=== PATIENT | female | born 1955 | race Caucasian/White ===

== ENCOUNTER 2019-11-18 19:46 | Observation (INO) | payer BC, OTHER ==
[2019-11-18 21:06] LABS: Basophils % 0.1 % (0-1.3); Hematocrit 43.8 % (36.0-45.0); Lymphocytes % 10.4 % (15.3-44.8); MPV 9.1 fL (7.6-11.3); RBC Red Blood Cell Count 5.15 M/uL (3.86-4.86)
[2019-11-18 21:27] LABS: ALT/SGPT 28 U/L (12-78); AST/SGOT 37 U/L (15-37); Albumin 2.6 g/dL (3.4-5.0); Alkaline Phosphatase 90 U/L (45-117); BUN Blood Urea Nitrogen 12 mg/dL (7-18); Bicarbonate 20 mmol/L (21-32); Bilirubin Direct < 0.1 mg/dL (0-0.2); Bilirubin Total 0.4 mg/dL (0.2-1.0); Creatine Phosphokinase 51 U/L (26-192); Glucose Level 302 mg/dL (74-106); Potassium 3.9 mmol/L (3.5-5.1); Protein, Total 7.8 g/dL (6.4-8.2); Sodium Level 132 mmol/L (136-145); Troponin (Emerg Dept Use Only) 0.02 ng/mL (0.0-0.045)
[2019-11-18 21:40] LABS: Protime INR 1.08
[2019-11-18] MEDS ORDERED: NA CHLORIDE 0.9% 1,000 ML ONE (22:20)
[2019-11-18] MEDS ORDERED: dexAMETHasone 10 MG/ML VIAL ONE (22:20)
--- NOTE | 2019-11-18 23:18 | EDPHYS ---
Physician Documentation [facility] Name: Venecia Ware Age: 64 yrs Sex: Female : 1955 Arrival Date: 11/18/2019 Time: 19:50 Bed 19 Private MD: ED Physician Reji Walls HPI: 11/17 21:07 This 64 yrs old Female presents to ER via Wheelchair with complaints of Flu jr8 Symptoms, Breathing Difficulty. 21:07 Onset: The symptoms/episode began/occurred gradually, 1 week(s) ago, and became worse 4 jr8 day(s) ago. Associated signs and symptoms: Pertinent positives: cough, diarrhea, shortness of breath, loss of taste. Modifying factors: The patient symptoms are alleviated by nothing, the patient symptoms are aggravated by movement. The patient has not experienced similar symptoms in the past. The patient has not recently seen a physician. Historical: - Allergies: 20:04 No Known Allergies; lp1 - Home Meds: 20:04 None [Active]; lp1 - PMHx: 20:04 Diabetes - NIDDM; Hyperlipidemia; Hypertension; lp1 - PSHx: 20:04 Heart stents; Cholecystectomy; Hysterectomy; lp1 - Immunization history:: Adult Immunizations up to date. - Social history:: Smoking status: Patient denies any tobacco usage or history of. ROS: 21:07 Eyes: Negative for injury, pain, redness, and discharge, ENT: Negative for injury, jr8 pain, and discharge, Neck: Negative for injury, pain, and swelling, Cardiovascular: Negative for chest pain, palpitations, and edema, Back: Negative for injury and pain, MS/Extremity: Negative for injury and deformity, Skin: Negative for injury, rash, and discoloration, Neuro: Negative for headache, weakness, numbness, tingling, and seizure. 21:07 Respiratory: Positive for cough, dyspnea on exertion, shortness of breath. 21:07 Abdomen/GI: Positive for diarrhea. 21:08 Constitutional: Positive for body aches, chills, fever, malaise. jr8 Exam: 21:08 Eyes: Pupils equal round and reactive to light, extra-ocular motions intact. Lids and jr8 lashes normal. Conjunctiva and sclera are non-icteric and not injected. Cornea within normal limits. Periorbital areas with no swelling, redness, or edema. ENT: Nares patent. No nasal discharge, no septal abnormalities noted. Tympanic membranes are normal and external auditory canals are clear. Oropharynx with no redness, swelling, or masses, exudates, or evidence of obstruction, uvula midline. Mucous membranes moist. Neck: Trachea midline, no thyromegaly or masses palpated, and no cervical lymphadenopathy. Supple, full range of motion without nuchal rigidity, or vertebral point tenderness. No Meningismus. Abdomen/GI: Soft, non-tender, with normal bowel sounds. No distension or tympany. No guarding or rebound. No evidence of tenderness throughout. Back: No spinal tenderness. No costovertebral tenderness. Full range of motion. Skin: Warm, dry with normal turgor. Normal color with no rashes, no lesions, and no evidence of cellulitis. MS/ Extremity: Pulses equal, no cyanosis. Neurovascular intact. Full, normal range of motion. Neuro: Awake and alert, GCS 15, oriented to person, place, time, and situation. Cranial nerves II-XII grossly intact. Motor strength 5/5 in all extremities. Sensory grossly intact. Cerebellar exam normal. Normal gait. 21:08 Cardiovascular: Rate: tachycardic, Rhythm: regular, Pulses: Pulses are 2+ in right radial artery and left radial artery. Heart sounds: normal, normal S1and S2, no S3 or S4, no murmur, no rub, no gallop, Edema: is not appreciated, JVD: is not appreciated. 21:08 Respiratory: mild respiratory distress is noted, Respirations: tachypnea, that is moderate, Breath sounds: are clear throughout, no bronchial sounds, no decreased breath sounds, no rales, rhonchi, no stridor, no wheezing. Vital Signs: 20:01 BP 136 / 91; Pulse 118; Resp 24; Temp 99.1(O); Pulse Ox 89% on R/A; Weight 68.04 kg; lp1 20:04 BP 133 / 71; Pulse 117; Resp 25; Temp 99.1; Pulse Ox 96% on 2.5 lpm NC; Pain 5/10; mt2 21:30 BP 136 / 79; Pulse 114; Resp 22; Pulse Ox 96% on 2.5 lpm NC; Pain 5/10; mt2 22:30 BP 129 / 79; Pulse 108; Resp 22; Pulse Ox 95% on 2.5 lpm NC; Pain 0/10; mt2 23:16 BP 133 / 83; Pulse 108; Resp 22; Pulse Ox 96% on 2.5 lpm NC; Pain 0/10; mt2 07 00:42 BP 149 / 89; Pulse 105; Resp 19; Pulse Ox 97% on 2.5 lpm NC; Pain 0/10; mt2 01:28 BP 140 / 87; Pulse 94; Resp 19; Temp 98.0; Pulse Ox 95% on R/A; Pain 0/10; mt2 02:27 BP 138 / 100; Pulse 90; Resp 19; Temp 97.6(O); Pulse Ox 95% on 2.5 lpm NC; Pain 0/10; mt2 MDM: 11/17 20:02 Patient medically screened. [facility] 23:14 Data reviewed: vital signs, nurses notes, lab test result(s), EKG, radiologic studies, [facility] CT scan, plain films. Data interpreted: Pulse oximetry: on room air is 89 %. Interpretation: hypoxia. Counseling: I had a detailed discussion with the patient and/or guardian regarding: the historical points, exam findings, and any diagnostic results supporting the discharge/admit diagnosis, lab results, radiology results, the need for further work-up and treatment in the hospital. 11/17 20:34 Order name: D-Dimer [facility] 11/17 20:34 Order name: C-Reactive Protein [facility] 11/17 20:34 Order name: Fibrinogen [facility] 11/17 20:34 Order name: Basic Metabolic Panel [facility] 11/17 20:34 Order name: Blood Culture Adult (2) [facility] 11/17 20:34 Order name: CBC with Diff; Complete Time: 21:09 [facility] 11/17 20:34 Order name: CPK; Complete Time: 21:35 [facility] 11/17 20:34 Order name: Lactate; Complete Time: 21:35 [facility] 11/17 20:34 Order name: LFT's; Complete Time: 21:35 [facility] 11/17 20:34 Order name: Procalcitonin; Complete Time: 21:35 [facility] 11/17 20:34 Order name: Protime (+inr); Complete Time: 21:47 [facility] 11/17 20:34 Order name: Ptt, Activated; Complete Time: 21:47 8 11/17 20:34 Order name: Troponin (emerg Dept Use Only); Complete Time: 21:35 8 11/17 20:34 Order name: Urine Microscopic Only; Complete Time: 02:29 jr8 11/17 20:34 Order name: Chest Single View XRAY 8 11/17 20:34 Order name: Cardiac monitoring; Complete Time: 20:41 8 11/17 20:34 Order name: EKG - Nurse/Tech; Complete Time: 20:38 8 11/17 20:34 Order name: IV Saline Lock - Large Bore; Complete Time: 20:41 8 11/17 20:34 Order name: Labs collected and sent; Complete Time: 20:41 [facility] 11/17 20:35 Order name: D-Dimer; Complete Time: 21:47 EDMS 11/17 20:35 Order name: C-Reactive Protein; Complete Time: 21:35 EDMS 11/17 20:35 Order name: Fibrinogen; Complete Time: 21:47 EDMS 11/17 20:35 Order name: Basic Metabolic Panel; Complete Time: 21:35 EDMS 11/17 21:00 Order name: COVID-19 jd3 11/17 21:47 Order name: CT Chest For PE Angio 8 11/18 02:40 Order name: Urine Dipstick--Ancillary (enter results) tt3 11/18 02:52 Order name: Urine Dipstick-Ancillary EDMS 11/17 20:34 Order name: O2 Per Protocol; Complete Time: 20:39 [facility] 11/17 20:34 Order name: O2 Sat Monitoring; Complete Time: 20:39 8 11/17 20:34 Order name: Urine Dipstick-Ancillary (obtain specimen); Complete Time: 02:18 Administered Medications: 22:13 Drug: NS 0.9% 1000 ml Route: IV; Rate: 1000 ml; Site: right antecubital; mt2 23:39 Follow up: Response: No adverse reaction; IV Status: Completed infusion; IV Intake: mt2 1000ml 22:13 Drug: Decadron - Dexamethasone 10 mg Route: IVP; Site: right antecubital; mt2 22:54 Follow up: Response: No adverse reaction mt2 Disposition: 11/18 05:57 Co-signature as Attending Physician, Reji Walls MD. [email or web address] Disposition: 11/18/19 23:17 Hospitalization ordered by Terrence Dalton for Inpatient Admission. Preliminary diagnosis are Acute respiratory failure with hypoxia, COVID-19. - Bed requested for Telemetry/MedSurg (Inpatient). - Status is Inpatient Admission. mt2 - Condition is Fair. - Problem is new. - Symptoms have improved. Signatures: Dispatcher [employer] EDMS Yany Arreola RN RN Leanne Meeks RN RN lp1 Jake Mina PA PA jr8 Pradip Walton RN RN [facility] Reji Walls MD MD 7 Margaret Vidales RN RN mt2 Corrections: (The following items were deleted from the chart) 11/17 23:30 23:17 Hospitalization Ordered by Terrence Dalton for Inpatient Admission. Preliminary mw diagnosis is Acute respiratory failure with hypoxia; COVID-19. Bed requested for Telemetry/MedSurg (Inpatient). Status is Inpatient Admission. Condition is Fair. Problem is new. Symptoms have improved. jr8 23:34 23:30 11/18/2019 23:17 Hospitalization Ordered by Terrence Dalton for Inpatient mw Admission. Preliminary diagnosis is Acute respiratory failure with hypoxia; COVID-19. Bed requested for Intensive Care Unit. Status is Inpatient Admission. Condition is Fair. Problem is new. Symptoms have improved. 11/18 01:58 11/17 23:34 11/18/2019 23:17 Hospitalization Ordered by Terrence Dalton for Inpatient mg2 Admission. Preliminary diagnosis is Acute respiratory failure with hypoxia; COVID-19. Bed requested for Intensive Care Unit. Status is Inpatient Admission. Condition is Fair. Problem is new. Symptoms have improved. 11/18 02:57 01:58 11/18/2019 23:17 Hospitalization Ordered by Terrence Dalton for Inpatient mt2 Admission. Preliminary diagnosis is Acute respiratory failure with hypoxia; COVID-19. Bed requested for Telemetry/MedSurg (Inpatient). Status is Inpatient Admission. Condition is Fair. Problem is new. Symptoms have improved. mg2
--- NOTE | 2019-11-18 23:18 | ER ---
Nurse's Notes [facility] Name: Venecia Ware Age: 64 yrs Sex: Female : 1955 Arrival Date: 11/18/2019 Time: 19:50 Bed 19 Private MD: Diagnosis: Acute respiratory failure with hypoxia;COVID-19 Presentation: 11/17 20:01 Chief complaint: Patient states: States feeling bad for the last week with shortness of lp1 breath, diarrhea, fever, chills that began 3-4 days ago; States cough when attempting to take deep breath. Coronavirus screen: Patient reports a cough. Patient reports shortness of breath or difficulty breathing. Patient reports a measured and/or subjective temperature greater than 100.4F. Patient denies travel on a cruise ship or to a country the [facility] currently lists as an affected area. Patient denies contact with known and/or suspected case of COVID-19. Patient instructed to continue to wear a mask when interacting with others. Patient moved to private room, placed in contact and droplet isolation with eye protection until further assessment. Ebola Screen: No symptoms or risks identified at this time. Initial Sepsis Screen: Does the patient meet any 2 criteria? RR > 20 per min. HR > 90 bpm. Does the patient have a suspected source of infection? Yes: Productive cough/pneumonia. Risk Assessment: Do you want to hurt yourself or someone else? Patient reports no desire to harm self or others. Onset of symptoms was November 09, 2019. 20:01 Method Of Arrival: Wheelchair lp1 20:01 Acuity: CARLOS A 2 lp1 Triage Assessment: 20:04 General: Appears uncomfortable, Behavior is cooperative, agitated. Respiratory: Reports mt2 shortness of breath cough that is the patient has moderate shortness of breath. Historical: - Allergies: 20:04 No Known Allergies; lp1 - Home Meds: 20:04 None [Active]; lp1 - PMHx: 20:04 Diabetes - NIDDM; Hyperlipidemia; Hypertension; lp1 - PSHx: 20:04 Heart stents; Cholecystectomy; Hysterectomy; lp1 - Immunization history:: Adult Immunizations up to date. - Social history:: Smoking status: Patient denies any tobacco usage or history of. Screenin:05 Abuse screen: Denies threats or abuse. Denies injuries from another. Nutritional lp1 screening: No deficits noted. Tuberculosis screening: No symptoms or risk factors identified. 20:40 Fall Risk Gait- Weak (10 pts.). mt2 Assessment: 21:27 Pain: Complains of pain in generalized Pain began 2-3 days ago. Neuro: No deficits mt2 noted. Cardiovascular: Rhythm is sinus tachycardia. Respiratory: Airway is patent Respiratory effort is labored, Respiratory pattern is tachypnea Breath sounds are diminished. 22:30 Reassessment: Patient and/or family updated on plan of care and expected duration. Pain mt2 level reassessed. Patient denies pain at this time. General: Appears comfortable, Behavior is cooperative. 23:16 Reassessment: Patient and/or family updated on plan of care and expected duration. Pain mt2 level reassessed. Patient denies pain at this time. 11/18 00:42 Reassessment: Patient and/or family updated on plan of care and expected duration. Pain mt2 level reassessed. Patient denies pain at this time. General: Appears comfortable. 01:32 Reassessment: Patient and/or family updated on plan of care and expected duration. Pain mt2 level reassessed. Patient denies pain at this time. General: Appears comfortable, Behavior is cooperative. 02:27 Reassessment: Patient and/or family updated on plan of care and expected duration. Pain mt2 level reassessed. Patient denies pain at this time. Vital Signs: 11/17 20:01 BP 136 / 91; Pulse 118; Resp 24; Temp 99.1(O); Pulse Ox 89% on R/A; Weight 68.04 kg; lp1 20:04 BP 133 / 71; Pulse 117; Resp 25; Temp 99.1; Pulse Ox 96% on 2.5 lpm NC; Pain 5/10; mt2 21:30 BP 136 / 79; Pulse 114; Resp 22; Pulse Ox 96% on 2.5 lpm NC; Pain 5/10; mt2 22:30 BP 129 / 79; Pulse 108; Resp 22; Pulse Ox 95% on 2.5 lpm NC; Pain 0/10; mt2 23:16 BP 133 / 83; Pulse 108; Resp 22; Pulse Ox 96% on 2.5 lpm NC; Pain 0/10; mt2 11/18 00:42 BP 149 / 89; Pulse 105; Resp 19; Pulse Ox 97% on 2.5 lpm NC; Pain 0/10; mt2 01:28 BP 140 / 87; Pulse 94; Resp 19; Temp 98.0; Pulse Ox 95% on R/A; Pain 0/10; mt2 02:27 BP 138 / 100; Pulse 90; Resp 19; Temp 97.6(O); Pulse Ox 95% on 2.5 lpm NC; Pain 0/10; mt2 Vitals: 11/17 20:04 Cardiac Rhythm Assessment Sinus tach. mt2 ED Course: 19:50 Patient arrived in ED. cf2 19:52 Margaret Vidales, NISA is Primary Nurse. mt2 20:02 Jake Mina PA is PHCP. jr8 20:02 Reji Walls MD is Attending Physician. jr8 20:04 Triage completed. lp1 20:04 Arm band placed on. lp1 20:05 Patient has correct armband on for positive identification. Placed in gown. Bed in low lp1 position. Call light in reach. 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 Pulse ox on. NIBP on. 20:39 Inserted saline lock: 20 gauge in right antecubital area, using aseptic technique. mt2 Blood collected. 20:40 Basic Metabolic Panel Sent. ds4 20:41 C-Reactive Protein Sent. ds4 20:41 Fibrinogen Sent. ds4 20:41 D-Dimer Sent. ds4 20:41 D-Dimer Sent. ds4 20:41 Procalcitonin Sent. ds4 20:41 Protime (+inr) Sent. ds4 20:41 Ptt, Activated Sent. ds4 20:41 Troponin (emerg Dept Use Only) Sent. ds4 20:41 Lactate Sent. ds4 20:44 Initial lab(s) drawn, by mi, sent to lab. First set of blood cultures drawn by mi. mt2 21:00 Second set of blood cultures drawn by mi. mt2 21:10 Chest Single View XRAY In Process Unspecified. EDMS 21:25 Blood Culture Adult (2) Sent. mt2 21:43 Notified Nurse Practitioner and/or Physician Table Assembler [employer] of a critical lab result(s), jd3 D-dimer 954. 22:01 COVID-19 Sent. mt2 22:26 CT Chest For PE Angio In Process Unspecified. EDMS 23:17 Terrence Dalton is Hospitalizing Provider. jr8 23:38 No provider procedures requiring assistance completed. mt2 23:39 Patient admitted, IV remains in place. mt2 11/18 02:18 Urine Microscopic Only Sent. mt2 Administered Medications: 11/17 22:13 Drug: NS 0.9% 1000 ml Route: IV; Rate: 1000 ml; Site: right antecubital; mt2 23:39 Follow up: Response: No adverse reaction; IV Status: Completed infusion; IV Intake: mt2 1000ml 22:13 Drug: Decadron - Dexamethasone 10 mg Route: IVP; Site: right antecubital; mt2 22:54 Follow up: Response: No adverse reaction mt2 Intake: 23:39 IV: 1000ml; Total: 1000ml. mt2 Outcome: 23:17 Decision to Hospitalize by Provider. jr8 23:39 Condition: stable mt2 11/18 02:27 Admitted to Med/surg accompanied by tech, via stretcher, room 431, with oxygen, Report mt2 called to lou colunga 02:57 Patient left the ED. mt2 Signatures: Dispatcher [employer] EDMS Leanne Meeks, RN RN lp1 Jake Mina PA PA jr8 Brandon Yeung ds4 Sanju Esteves RN RN jd3 Matty Huerta cf2 Margaret Vidales RN RN mt2
--- NOTE | 2019-11-19 00:31 | P.HP ---
Certification for Inpatient Patient admitted to: Inpatient With expected LOS: >2 Midnights Practitioner: I am a practitioner with admitting privileges, knowledge of patient current condition, hospital course, and medical plan of care. Services: Services provided to patient in accordance with Admission requirements found in Title 42 Section 412.3 of the Code of Federal Regulations Patient History Date of Service: 11/19/19 Reason for admission: Shortness of breath History of Present Illness: 64-year-old woman with a history of diabetes mellitus and hypertension presented emergency department with a complaint of progressive shortness of breath, cough and subjective fever. Patient states she was diagnosed with COVID 19 infection last week and since then has been getting worse with progressive shortness of breath. Her oxygen saturation was 89% on room air in the ED. Chest x-ray demonstrated bilateral ground-glass opacities. Her D-dimer is elevated. This was further evaluated with CTA thorax which confirmed [id number] ground- glass opacities more pronounced in the upper lobes and no evidence of PE. She does not meet criteria for sepsis. Patient is admitted for viral pneumonia with hypoxia. Allergies No Known Allergies Allergy (Unverified 06/25/13 20:33) Home Medications: Aspirin [Aspirin EC 81 MG] 81 mg PO DAILY 03/09/14 Atorvastatin Calcium [Lipitor] 80 mg PO BEDTIME 03/09/14 Lisinopril [Zestril] 20 mg PO DAILY 03/09/14 Metformin HCl [Glucophage*] 1,000 mg PO BID 03/09/14 Metoprolol Tartrate [Lopressor*] 75 mg PO BID 03/09/14 Ticagrelor [Brilinta*] 1 tab PO BID 03/09/14 Pantoprazole [Protonix Tab*] 40 mg PO DAILY #30 tab 03/10/14 Amlodipine Besylate 10 mg PO DAILY 01/13/16 Clopidogrel Bisulfate [Plavix] 75 mg PO DAILY 01/13/16 Diphenhydramine [Benadryl*] 25 mg PO TID PRN 01/13/16 Ciprofloxacin [Ciprofloxacin 500 MG/5 ML Susp] 500 mg PO Q12HR #8 ml 01/16/16 Metronidazole 500 mg PO Q8HR #12 tablet 01/16/16 - Past Medical/Surgical History Diabetic: Yes -: HTN -: TIA, 2006 -: Endometreosis with Hysterectomy -: Hearing loss since her TIA -: Hyperlipidemia -: DM retinopathy with retinal disease -: Tobacco abuse -: Hysterectomy -: Cholecystectomy -: Appendectomy -: 2 stent placement in 2013 Psychosocial/ Personal History: Single, Children-2, 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 - Family History Family History: Reviewed- Non-Contributory - Social History Alcohol use: No CD- Drugs: No Caffeine use: No Review of Systems Other: Except as documented, all other systems reviewed and negative. Physical Examination - Physical Exam General: Alert, In no apparent distress, Oriented x3 HEENT: Atraumatic, Normocephalic, PERRLA, Mucous membr. moist/pink, Sclerae nonicteric Neck: Supple, JVD not distended Respiratory: Normal air movement, Crackles/rales (Bilateral) Cardiovascular: No edema, Normal S1 S2, Other (Tachycardia) Capillary refill: <2 Seconds Gastrointestinal: Normal bowel sounds, Soft and benign, Non-distended, No tenderness Musculoskeletal: No swelling, No erythema Integumentary: No rashes, No tenderness/swelling Neurological: Normal gait, Normal strength at 5/5 x4 extr, Cranial nerves 3-12 intact - Studies Laboratory Data (last 24 hrs) 11/18/19 20:40: WBC 9.7, Hgb 14.8, Hct 43.8, Plt Count 327 11/18/19 20:40: Sodium 132 L, Potassium 3.9, BUN 12, Creatinine 0.77, Glucose 302 H, Total Bilirubin 0.4, AST 37, ALT 28, Alkaline Phosphatase 90 11/18/19 20:40: PT 12.7 H, INR 1.08, APTT 28.0 Assessment and Plan - Problems (Diagnosis) (1) Viral pneumonia Current Visit: Yes Status: Acute (2) Acute respiratory failure with hypoxemia Current Visit: Yes Status: Acute (3) Diabetes mellitus Onset Date: 03/10/14 Current Visit: No Status: Acute - Plan Admit to the medical floor. Start IV Zithromax and IV dexamethasone Supplemental oxygen Pulmonary consult. Blood sugar control with insulin sliding scale Hold metformin. Monitor renal function and CBC and electrolytes. - Advance Directives Does patient have a Living Will: No Does patient have a Durable POA for Healthcare: No
[2019-11-19 02:27] LABS: Urine Bacteria <20 /HPF (<20); Urine Culture Reflex Order NOT NEEDED; Urine RBC <5 /HPF (NONE SEEN)
[2019-11-19 02:52] LABS: Urine Blood TRACE (NEG); Urine Glucose 2+ (NEG); Urine Protein 2+ (NEG); Urine Specific Gravity 1.015 (1.005-1.030); Urine pH 5.5 (5.0-7.0)
[2019-11-19] MEDS ORDERED: NA CHLORIDE 0.9% 1,000 ML IV SCH (03:05)
[2019-11-19] MEDS ORDERED: ACETAMINOPHEN 500 MG TAB PO PRN (03:05)
[2019-11-19 03:11] VITALS: BMI 23.8
[2019-11-19] MEDS ORDERED: NA CHLORIDE 0.9% 1,000 ML ONE (03:18)
[2019-11-19] MEDS ORDERED: dexAMETHasone 10 MG/ML VIAL IV SCH (04:00)
[2019-11-19] MEDS ORDERED: AZITHROMYCIN IV 500 MG in NA CHLORIDE 0.9% 250 ML IVPB SCH (04:00)
[2019-11-19] MEDS ORDERED: AZITHROMYCIN 500 MG INJ IVPB ONE (04:28)
[2019-11-19] MEDS ORDERED: NA CHLORIDE 0.9% 250 ML ONE (04:41)
--- NOTE | 2019-11-19 07:23 | RAD REPORT ---
EXAM DESCRIPTION: RAD - Chest Single View - 11/18/2019 9:10 pm CLINICAL HISTORY: DYSPNEA, cough, fever, chills for 3-4 days COMPARISON: Portable December 2016 TECHNIQUE: AP portable chest image was obtained 11/18/2019 9:10 pm . FINDINGS: No one focal dense consolidations seen. The patient has ground-glass opacification scatter ed throughout the lung tucker. This appears to be predominantly peripheral in location. A few granulo mas are present. Heart size within normal limits. Pulmonary vasculature mildly prominent. Mediastinal benign calcific ations are present. No measurable pleural effusion and no pneumothorax. No acute bony abnormality see n. No acute aortic findings suspected. IMPRESSION: Bilateral peripheral ground-glass opacification pattern. Patient shows bilateral pneumonia findings with COVID-19 pneumonia a primary consideration.
[2019-11-19] MEDS ORDERED: GLUCAGON 1 MG/VIAL IM PRN (08:16)
[2019-11-19] MEDS ORDERED: D50W 25 GM/50 ML SYRINGE/VIAL IV PRN (08:16)
--- NOTE | 2019-11-19 08:16 | P.PN ---
Date of Service: 11/19/19 Patient seen. She is complaining of generalized weakness. She is requiring 3 L of oxygen by nasal cannula. Does not appear to be in acute respiratory distress. Blood glucose is elevated. UA-no evidence of UTI. Continue IV Zithromax and IV dexamethasone. Insulin sliding scale for glucose management. Add low dose Lantus insulin to treat steroid induced hyperglycemia. Patient to be seen by Dr. Adair.
[2019-11-19] MEDS: FUROSEMIDE 20 MG/ 2ML VIAL IV SCH (08:25)
[2019-11-19] MEDS: ENOXAPARIN 40 MG/0.4 ML SQ SCH (08:25)
[2019-11-19] MEDS: INSULIN -REGULAR HUMAN 50 UNIT/0.5 ML ML SQ SCH ×4 (08:26→21:10)
[2019-11-19] MEDS ORDERED: INSULIN GLARGINE 100 UNITS/ML SQ SCH (09:00)
--- NOTE | 2019-11-19 10:15 | EKG ---
Test Date: 2019-11-18 Test Time: 20:27:54 Food Service Director: AMADEO MEASUREMENT RESULTS: Intervals: Rate: 113 UT: 120 QRSD: 90 QT: 332 QTc: 455 [place]: P: 46 UT: 120 QRS: -16 T: -12 INTERPRETIVE STATEMENTS: Sinus tachycardia Possible Left atrial enlargement Left ventricular hypertrophy Abnormal ECG Compared to ECG 01/05/2017 19:38:28 Left ventricular hypertrophy now present Myocardial infarct finding no longer present Electronically Signed On 11-19-19 10:13:51 CDT by Alistair Clifton
--- NOTE | 2019-11-19 11:51 | P.CNS ---
Date of Consult: 11/19/19 Reason for Consult: pneumonia due to saldivar virus Chief Complaint: Shortness of breath History of Present Illness: patient is 64 years of age see of diabetes hypertension admitted with progressive cough shortness of breath as diagnosed with saldivar virus infection been progressively worse was hypoxic DT scan consistent with saldivar virus infection transfer to the ICU she feels a little weak today mildly hypoxic Allergies No Known Allergies Allergy (Verified 11/19/19 04:30) Home Medications: NK [No Home Meds] 11/19/19 - Past Medical/Surgical History Diabetic: Yes -: HTN -: TIA, 2006 -: Endometreosis with Hysterectomy -: Hearing loss since her TIA -: Hyperlipidemia -: DM retinopathy with retinal disease -: Tobacco abuse -: Hysterectomy -: Cholecystectomy -: Appendectomy -: 2 stent placement in 2013 Psychosocial/ Personal History: Single, Children-2, 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 - Family History Father Medical History: Heart disease, Hypertension, Diabetes Mother Medical History: Hypertension Notes: Aneurysm x 2 - Social History Smoking Status: Current every day smoker (8 cig per day for about 25 years.) Alcohol use: No CD- Drugs: No Caffeine use: No Place of Residence: Home Review of Systems General: Weakness Respiratory: Shortness of Breath Physical Examination Temp Pulse Resp BP Pulse Ox 97.1 F 92 H 20 110/78 88 L 11/19/19 08:00 11/19/19 11:30 11/19/19 11:30 11/19/19 11:30 11/19/19 11:30 General: Other ( deferr) Laboratory Data (last 24 hrs) 11/18/19 20:40: WBC 9.7, Hgb 14.8, Hct 43.8, Plt Count 327 11/18/19 20:40: Sodium 132 L, Potassium 3.9, BUN 12, Creatinine 0.77, Glucose 302 H, Total Bilirubin 0.4, AST 37, ALT 28, Alkaline Phosphatase 90 11/18/19 20:40: PT 12.7 H, INR 1.08, APTT 28.0 - Problems (1) Pneumonia due to human coronavirus Current Visit: Yes Status: Acute Plan: patient is 64 years of age admitted with pneumonia due to saldivar virus labs reviewed recommend setup for home O2 discharge on steroids and a steroid inhaler reduce dose of Decadron vital signs stable
[2019-11-19] MEDS: dexAMETHasone 4 MG/ML VIAL IV SCH ×2 (12:00→20:15)
[2019-11-19] MEDS ORDERED: dexAMETHasone 4 MG/ML VIAL IV SCH (12:00)
[2019-11-19] MEDS: INSULIN GLARGINE 100 UNITS/ML SQ SCH (21:10)
[2019-11-20] MEDS: dexAMETHasone 4 MG/ML VIAL IV SCH ×2 (03:52→12:08)
[2019-11-20 04:23] LABS: Absolute Lymphocytes (CBC) 1.4 K/uL (0.7-4.9); Basophils % 0.2 % (0-1.3); Hematocrit 42.2 % (36.0-45.0); Lymphocytes % 6.2 % (15.3-44.8); MPV 8.7 fL (7.6-11.3); RBC Red Blood Cell Count 4.97 M/uL (3.86-4.86)
[2019-11-20 04:39] LABS: BUN Blood Urea Nitrogen 24 mg/dL (7-18); Bicarbonate 22 mmol/L (21-32); Glucose Level 312 mg/dL (74-106); Magnesium 2.1 mg/dL (1.8-2.4); Phosphorus 2.8 mg/dL (2.5-4.9); Potassium 3.6 mmol/L (3.5-5.1); Sodium Level 140 mmol/L (136-145)
[2019-11-20 05:10] LABS: Blood Morphology Comment NOT SEEN (NOT SEEN); Platelet Estimate ADEQ
[2019-11-20] MEDS ORDERED: VANCOMYCIN/NS 1 gm 1 GM/250 ML BAG IVPB SCH ×2 (05:30→21:00)
[2019-11-20] MEDS ORDERED: Levofloxacin 750mg IV 750 MG/150 ML BAG IV SCH (06:00)
[2019-11-20] MEDS ORDERED: VANCOMYCIN 1 GM/VIAL ONE (06:07)
[2019-11-20] MEDS ORDERED: NA CHLORIDE 0.9% 250 ML ONE (06:08)
[2019-11-20] MEDS ORDERED: POTASSIUM CL SA 10 MEQ TAB PO ONE (08:00)
[2019-11-20] MEDS: FUROSEMIDE 20 MG/ 2ML VIAL IV SCH (08:08)
[2019-11-20] MEDS: ENOXAPARIN 40 MG/0.4 ML SQ SCH (08:08)
[2019-11-20] MEDS: INSULIN -REGULAR HUMAN 50 UNIT/0.5 ML ML SQ SCH ×3 (08:09→17:20)
[2019-11-20] MEDS: INSULIN GLARGINE 100 UNITS/ML SQ SCH (08:09)
--- NOTE | 2019-11-20 09:03 | P.PN ---
Subjective Date of Service: 11/20/19 Chief Complaint: Shortness of breath Patient states she feels slightly better. She is maintained on 3 L of oxygen by nasal cannula. She has been afebrile. Patient now has leukocytosis. 1 blood culture bottle is growing Gram positive cocci. Physical Examination - Vital Signs Temperature: 98.1 F Blood Pressure: 115/70 Pulse: 73 Respirations: 12 Pulse Ox (%): 94 - Physical Exam General: Alert, In no apparent distress Respiratory: Normal air movement, Crackles/rales (Bilateral) Cardiovascular: No edema, Regular rate/rhythm, Normal S1 S2 Gastrointestinal: Normal bowel sounds, Soft and benign, No tenderness Integumentary: No rashes Neurological: Normal speech, Other (Nonfocal) - Studies Microbiology Data (last 24 hrs): 11/18/19 21:32 Nasopharnyx Coronavirus COVID-19 PCR - Final Assessment And Plan - Current Problems (Diagnosis) (1) Viral pneumonia Current Visit: Yes Status: Acute (2) Acute respiratory failure with hypoxemia Current Visit: Yes Status: Acute (3) Diabetes mellitus Onset Date: 03/10/14 Current Visit: No Status: Acute (4) Bacteremia Current Visit: Yes Status: Acute - Plan Continue IV steroid. Pulmonary input appreciated. Start IV vancomycin and Levaquin. Follow blood culture organism identification and sensitivity. Repeat blood culture. Titrate oxygen. IV Lasix per pulmonology Home oxygen qualification on discharge.
--- NOTE | 2019-11-20 10:51 | RAD REPORT ---
EXAM DESCRIPTION: CT - Chest For Pe Angio - 11/19/2019 3:14 am CLINICAL HISTORY: Chest pain and dyspnea. TECHNIQUE: Chest CTA. 2.0 mm reconstructed axial images were obtained. Coronal and sagittal reformatted images were obtaine d. Coronal and sagittal MIP images were obtained. DOSE OPTIMIZATION: This facility uses dose optimization techniques as appropriate to perform exams, including at least one of the following techniques: 1. Automated exposure control. 2. Adjustment of the mA and/or kV according to patient size (this includes techniques or standardized protocols for targeted exams where dose is matched to the indication/reason for exam, i.e. extremiti es or head). 3. Use of iterative reconstructive technique. INTRAVENOUS CONTRAST: Not documented. COMPARISON: None available. FINDINGS: Lung Tucker: There are moderately severe groundglass opacifications in the upper lobes bilaterally. There is mild to moderately severe dependent atelectasis in the lower lobes bilaterally. There are calcified granulomas in the lung tucker bilaterally. Mediastinal Structures: There is no evidence of aortic aneurysm or dissection. There is mild atherosclerotic disease about the thoracic aorta. There is evidence of coronary disease. There are calcified lymph nodes about the jaret bilaterally and in the mediastinum. Pulmonary Arteries: Normal. Pleural Space: Normal. Axillae: No adenopathy. Upper Abdomen: Normal. Bony Structures: There is moderately severe diffuse spondylosis throughout the thoracic spine. IMPRESSION: 1. No evidence of pulmonary embolus. 2. Moderately severe groundglass opacifications in the upper lobes bilaterally. 3. Moderate severe dependent atelectasis in the lower lobes bilaterally. 4. Evidence of previous granulomatous disease. 5. Evidence of coronary arterial disease. Electronically signed by: Jairo Singh MD 11/18/2019 10:46 PM CDT Due to temporary technical issues with the PACS/Fluency reporting system, reports are being signed by the in house radiologist without review as a courtesy to ensure prompt reporting. The interpreting r adiologist is fully responsible for the content of the report.
--- NOTE | 2019-11-20 11:38 | P.PN ---
Subjective Date of Service: 11/20/19 Chief Complaint: Pneumonia due to coronalvkrus Subjective: Improving (Patient is doing well no new complaints will qualify for home O2) Review of Systems General: Weakness Respiratory: Shortness of Breath Physical Examination - Vital Signs Temperature: 98.1 F Blood Pressure: 102/64 Pulse: 87 Respirations: 22 Pulse Ox (%): 93 - Physical Exam General: Other (Examination due for) Assessment & Plan - Problems (Diagnosis) (1) Pneumonia due to human coronavirus Current Visit: Yes Status: Acute Plan: Patient admitted with pneumonia due to saldivar virus she is doing much better she qualify for home O2 plan to discharge on steroids and possibly a steroid inhaler elevated white count as pops a probably from the use of steroids no antibiotics needed Dc levofloxacin
[2019-11-20 11:55] VITALS: O2SAT 93
--- NOTE | 2019-11-20 12:22 | P.DS ---
Admission Date: 11/19/19 Discharge Date: 11/20/19 Disposition: ROUTINE DISCHARGE Discharge Condition: FAIR Reason for Admission: Pneumonia due to coronalvkrus Brief History of Present Illness: 64-year-old woman with a history of diabetes mellitus and hypertension presented emergency department with a complaint of progressive shortness of breath, cough and subjective fever. Patient states she was diagnosed with COVID 19 infection last week and since then has been getting worse with progressive shortness of breath. Her oxygen saturation was 89% on room air in the ED. Chest x-ray demonstrated bilateral ground-glass opacities. Her D-dimer is elevated. This was further evaluated with CTA thorax which confirmed [id number] ground- glass opacities more pronounced in the upper lobes and no evidence of PE. She does not meet criteria for sepsis. Patient is admitted for viral pneumonia with hypoxia. Hospital Course: The patient was admitted and was monitor closely under telemetry. Started on IV steroids along with IV antibiotics. Pulmonology was consulted. Recommended stopping the antibiotic and continue with the steroids. Cultures showed coagulase-negative Staph which could be a contaminate. The patient wants to go home and is being discharged home today in a stable condition with advice to follow up with PCP in 1 week and also with pulmonology in 1-2 weeks Patient need home O2 setup before discharge , social worker clinical were consulted Vital Signs/Physical Exam: Temp Pulse Resp BP Pulse Ox 98.1 F 87 22 H 102/64 93 11/20/19 11:38 11/20/19 11:38 11/20/19 11:38 11/20/19 11:38 11/20/19 11:38 General: Alert, In no apparent distress HEENT: Atraumatic, Normocephalic Neck: Supple Respiratory: Clear to auscultation bilaterally, Normal air movement Cardiovascular: Regular rate/rhythm, Normal S1 S2 Capillary refill: <2 Seconds Gastrointestinal: Soft and benign Musculoskeletal: No clubbing, No swelling Integumentary: No rashes Neurological: Normal speech, Normal strength at 5/5 x4 extr Lymphatics: No axilla or inguinal lymphadenopathy Laboratory Data at Discharge: WBC 23.2 K/uL (4.3-10.9) H* D 11/20/19 03:59 Hgb 14.1 g/dL (12.0-15.0) 11/20/19 03:59 Hct 42.2 % (36.0-45.0) 11/20/19 03:59 Plt Count 408 K/uL (152-406) H D 11/20/19 03:59 PT 12.7 SECONDS (9.5-12.5) H 11/18/19 20:40 INR 1.08 11/18/19 20:40 APTT 28.0 SECONDS (24.3-36.9) 11/18/19 20:40 Sodium 140 mmol/L (136-145) 11/20/19 03:59 Potassium 3.6 mmol/L (3.5-5.1) 11/20/19 03:59 BUN 24 mg/dL (7-18) H 11/20/19 03:59 Creatinine 0.59 mg/dL (0.55-1.3) 11/20/19 03:59 Glucose 312 mg/dL (74-106) H 11/20/19 03:59 Phosphorus 2.8 mg/dL (2.5-4.9) 11/20/19 03:59 Magnesium 2.1 mg/dL (1.8-2.4) 11/20/19 03:59 Total Bilirubin 0.4 mg/dL (0.2-1.0) 11/18/19 20:40 AST 37 U/L (15-37) 11/18/19 20:40 ALT 28 U/L (12-78) 11/18/19 20:40 Alkaline Phosphatase 90 U/L (45-117) 11/18/19 20:40 Home Medications: Budesonide/Formoterol Fumarate [Budesonide-Formoterol 80-4.5] 10.2 gm IH BID #1 hfa.aer.ad 11/20/19 predniSONE [Deltasone] 20 mg PO BID #14 tab 11/20/19 New Medications: Budesonide/Formoterol Fumarate [Budesonide-Formoterol 80-4.5] 10.2 gm IH BID #1 hfa.aer.ad predniSONE [Deltasone] 20 mg PO BID #14 tab Time spent managing pt's care (in minutes): 45
[2019-11-20 17:50] VITALS: TEMP 97
[2019-11-20 18:10] VITALS: BP 112/83
== END 2019-11-20 19:50 | disposition home or self-care (01) ==
LOC: ER 19:46 → ERHOLD 11-19 00:30 → INTOOBSV 11-19 00:30 → 3RD-ICU 11-19 00:50 → 4TH 11-19 02:00 → 3RD-ICU 11-19 10:00
PROVIDERS: ADMIT Internal Medicine; ATTEND Internal Medicine
DX: U07.1 COVID-19 (principal); J12.89 Other viral pneumonia; J96.01 Acute respiratory failure with hypoxia; D72.829 Elevated white blood cell count, unspecified; R78.81 Bacteremia; J98.11 Atelectasis; I70.0 Atherosclerosis of aorta; I25.10 Atherosclerotic heart disease of native coronary artery without angina pectoris; I11.9 Hypertensive heart disease without heart failure; R00.0 Tachycardia, unspecified; R94.31 Abnormal electrocardiogram [ECG] [EKG]; E11.319 Type 2 diabetes mellitus with unspecified diabetic retinopathy without macular edema; E78.5 Hyperlipidemia, unspecified; Z79.84 Long term (current) use of oral hypoglycemic drugs; Z79.02 Long term (current) use of antithrombotics/antiplatelets; Z79.82 Long term (current) use of aspirin; Z79.899 Other long term (current) drug therapy; Z95.5 Presence of coronary angioplasty implant and graft; Z86.73 Personal history of transient ischemic attack (TIA), and cerebral infarction without residual deficits
CPT/HCPCS: 96365; 96367; 96361; 96368; 93005; 87040 ×3; 85025 ×2; 80048 ×2; 36415 ×2; 86900; 85384; 83735; 86850; 82550; 87205; 84100; 85610; 86901; 82947 ×8; 85379; 80076; 83605; 85730; 84484; 84145; 86140; 71275; 71045; 94760 ×3; 96375; 96374; 99285; 96366; U0002; Q9967; J1940 ×2; J0456 ×2; J1650 ×2; J3370; J1100 ×2; J7050 ×3; J7030 ×2; G0378 ×3; 81003; 81015; J1815

== ENCOUNTER 2020-01-31 10:52 | Inpatient (IN) | payer BC ==
[2020-01-31 11:33] LABS: Absolute Lymphocytes (CBC) 1.8 K/uL (0.7-4.9); Basophils % 0.7 % (0-1.3); Lymphocytes % 20.7 % (15.3-44.8); MPV 9.4 fL (7.6-11.3); RBC Red Blood Cell Count 5.33 M/uL (3.86-4.86)
[2020-01-31] MEDS ORDERED: ONDANSETRON 4 MG/2 ML VIAL ONE (11:43)
[2020-01-31] MEDS ORDERED: MORPHINE 4 MG/ML SYR ONE (11:43)
[2020-01-31] MEDS ORDERED: dexAMETHasone 4 MG/ML VIAL ONE (11:43)
[2020-01-31 11:52] LABS: Potassium 3.9 mmol/L (3.5-5.1)
--- NOTE | 2020-01-31 11:54 | RAD REPORT ---
EXAM DESCRIPTION: CT - Head Brain Wo Cont - 01/31/2020 11:41 am CLINICAL HISTORY: HEADACHE, blurred vision, patient detailed history of prior CVA COMPARISON: No comparisons TECHNIQUE: Axial 5 mm thick images of the head were obtained without IV contrast. All CT scans are performed using dose optimization technique as appropriate and may include automated exposure control or mA/KV adjustment according to patient size. FINDINGS: No intracranial hemorrhage is present. No midline shift or mass effect. In the posterior r ight parietooccipital junction there is a 4.5 centimeter area of decreased attenuation. De Leon matter- white matter differentiation is lost in this region. Sulcal effacement is seen. This is most likely a n acute to subacute CVA. Boundaries comply with a peripheral middle cerebral artery branch distributi on. No similar findings elsewhere. Malignant mass etiology is felt to be far less likely. No abnormal extra-axial fluid collections. Ventricles are normal. No significant atrophy or chronic ischemic rocio nge. Mastoid air cells and visualized portions of the paranasal sinuses are clear. No acute bony findings. IMPRESSION: A 4-5 centimeter area of diminished attenuation in the right parieto-occipital region is most likely an acute to subacute nonhemorrhagic CVA. Mass lesion is a much less likely etiology. The area of diminished attenuation conforms to peripheral right middle cerebral artery branch distribution.
[2020-01-31] MEDS ORDERED: METOPROLOL TAR 50 MG TAB ONE (12:19)
[2020-01-31] MEDS ORDERED: ASPIRIN 81 MG CHEWABLE TABLET ONE (12:19)
[2020-01-31] MEDS ORDERED: FOLIC ACID 5 MG/ML VIAL ONE (12:20)
--- NOTE | 2020-01-31 12:25 | EDPHYS ---
Physician Documentation [facility] Name: Venecia Ware Age: 64 yrs Sex: Female : 1955 Arrival Date: 01/31/2020 Time: 10:54 Bed 5 Private MD: ED Physician Volodymyr Trejo HPI: 01/30 12:06 This 64 yrs old Female presents to ER via Ambulatory with complaints of rn Headache, Blurred Vision. 12:06 The patient complains of pain to the forehead and right hindu. The patient describes rn the headache as aching. Onset: The symptoms/episode began/occurred 5 day(s) ago. Severity of symptoms: At its worst the pain was moderate, in the emergency department the pain is unchanged. The symptoms are alleviated by nothing. the symptoms are aggravated by nothing. The patient has not experienced similar symptoms in the past. Reports onset of headache and blurred vision 5 days ago, slowly getting worse until today headache became much worse. + cataract right eye and trouble with vision for 1 year, then noticed difference 5 days ago, with marked decrease in visual acuity, reports "like looking through plastic bag". Denies unilateral weakness/numbness/speech problem. . Historical: - Allergies: 11:41 No Known Allergies; jl7 - PMHx: 11:41 Diabetes - NIDDM; Hyperlipidemia; Hypertension; jl7 - PSHx: 11:41 Heart stents; Cholecystectomy; Hysterectomy; jl7 - Immunization history:: Adult Immunizations unknown. - Social history:: Smoking status: Patient/guardian denies using tobacco, the patient reports quitting approximately 6 years ago. - Family history:: not pertinent. - Hospitalizations: : No recent hospitalization is reported. ROS: 12:06 Constitutional: Negative for fever, chills, and weight loss, Eyes: + blurred vision rn Neck: Negative for injury, pain, and swelling, Cardiovascular: Negative for chest pain, palpitations, and edema, Respiratory: Negative for shortness of breath, cough, wheezing, and pleuritic chest pain, Abdomen/GI: Negative for abdominal pain, nausea, vomiting, diarrhea, and constipation, MS/Extremity: Negative for injury and deformity, Skin: Negative for injury, rash, and discoloration, Neuro: + headache, neg for weakness/numbness/seizure Exam: 12:06 Constitutional: This is a well developed, well nourished patient who is awake, alert, rn and in no acute distress. Head/Face: Normocephalic, atraumatic. Eyes: + cataract right eye, can see movement and some light with right eye, better vision with left eye. Cardiovascular: Tachycardic, regular Respiratory: No increased work of breathing, no retractions or nasal flaring. Abdomen/GI: soft, non-tender Skin: Warm, dry MS/ Extremity: Pulses equal, no cyanosis. Neurovascular intact. Full, normal range of motion. Equal circumference. Neuro: Awake and alert, GCS 15, oriented to person, place, time, and situation. Cranial nerves II-XII grossly intact. Motor strength 5/5 in all extremities. Sensory grossly intact. Vital Signs: 11:30 BP 176 / 118; Pulse 118; Resp 18; Temp 98.1(O); Pulse Ox 97% on R/A; mh5 12:00 BP 180 / 111; Pulse 105; Resp 17; Pulse Ox 93% ; Pain 6/10; jl7 12:36 BP 168 / 100; Pulse 99; Resp 17; Pulse Ox 93% ; Pain 6/10; jl7 13:34 BP 172 / 108; Pulse 96; Resp 17; Pulse Ox 94% ; jl7 13:59 BP 171 / 100; Pulse 88; Resp 16; Pulse Ox 95% ; jl7 14:30 BP 155 / 97; Pulse 91; Resp 15; Pulse Ox 95% ; Pain 0/10; jl7 NIH Stroke Scale Scores: 11:00 NIHSS Score: 0 jl7 Madison Coma Score: 12:22 Eye Response: spontaneous(4). Verbal Response: oriented(5). Motor Response: obeys rn commands(6). Total: 15. MDM: 11:01 Patient medically screened. rn 11:22 ED course: Onset 5 days ago with headache and intermittent blurred vision. Worse today. rn 12:00 ED course: Consulted with Dr. Serrano, will consult, will admit to hospitalist for rn further w/u. Pt notified of subacute stroke and inability to administer tpa because of onset of 5 days ago. Aspirin and folic acid ordered. . 12:22 Differential diagnosis: migraine, neoplasm, tension headache, trigeminal neuralgia, rn vasomotor headache, temporal arteritis, CVA. Data reviewed: vital signs, nurses notes, lab test result(s), EKG, radiologic studies, CT scan, and as a result, I will discharge patient. Counseling: I had a detailed discussion with the patient and/or guardian regarding: the historical points, exam findings, and any diagnostic results supporting the discharge/admit diagnosis, lab results, radiology results, the need for further work-up and treatment in the hospital. Response to treatment: There is no appreciated change of the patient's symptoms at this time, and as a result, I will admit patient. Admission orders: after a detailed discussion of the patient's condition and case, the admit orders are written by me. 01/30 11:11 Order name: CBC with Diff; Complete Time: 11:55 rn 01/30 11:11 Order name: Basic Metabolic Panel; Complete Time: 11:55 rn 01/30 11:11 Order name: CT Head Brain wo Cont; Complete Time: 11:55 rn 01/30 11:11 Order name: Protime (+inr); Complete Time: 11:55 rn 01/30 11:11 Order name: Ptt, Activated; Complete Time: 11:55 rn 01/30 11:11 Order name: ESR; Complete Time: 11:55 rn 01/30 11:11 Order name: EKG; Complete Time: 11:12 rn 01/30 11:11 Order name: IV Start; Complete Time: 12:19 rn 01/30 11:11 Order name: EKG - Nurse/Tech; Complete Time: 11:29 rn 01/30 13:18 Order name: CONS Physician Consult EDMS Administered Medications: 11:33 Drug: Zofran (Ondansetron) 4 mg Route: IVP; Site: right forearm; jl7 12:36 Follow up: Response: No adverse reaction jl7 11:35 Drug: Decadron - Dexamethasone 10 mg Route: IVP; Site: right forearm; jl7 12:36 Follow up: Response: No adverse reaction jl7 11:50 Drug: morphine 4 mg Route: IVP; Site: right forearm; jl7 12:05 Follow up: Response: No adverse reaction; Pain is decreased jl7 12:05 Drug: Metoprolol TARTRATE (Lopressor) 50 mg Route: PO; jl7 12:34 Follow up: Response: No adverse reaction; Blood pressure is lowered jl7 12:06 Drug: Aspirin Chewable Tablet 324 mg Route: PO; jl7 12:35 Follow up: Response: No adverse reaction jl7 12:10 Drug: foLIC Acid 1 mg Route: IVPB; Site: right forearm; jl7 12:35 Follow up: IV Status: Completed infusion jl7 13:40 Drug: Demerol 25 mg Route: IVP; Site: right forearm; jl7 13:59 Follow up: Response: No adverse reaction; Pain is decreased jl7 Disposition: 01/31/20 12:24 Hospitalization ordered by David Trejo for Inpatient Admission. Preliminary diagnosis are Ischemic stroke - subacute, Headache, Visual field defects. - Bed requested for Telemetry/MedSurg (Inpatient). - Status is Inpatient Admission. jl7 - Condition is Stable. - Problem is new. - Symptoms are unchanged. NIH Stroke Scale - NIH Stroke Score Date: 01/31/2020 Time: 11:00 Total Score = 0 1a. Level of Consciousness (LOC) - 0(Alert) 1b. Level of Consciousness (LOC) (Year \\T\\ Age) - 0(Both) 1c. LOC Commands (Open \\T\\ Closes Eyes/Delivery Manager) - 0(Both) 2. Best Gaze (Lateral Gaze Paresis) - 0(Normal) 3. Visual Field Loss - 0(No visual loss) 4. Facial Palsy - 0(Normal) 5a. Left Arm: Motor (10-second hold) - 0(No drift) 5b. Right Arm: Motor (10-second hold) - 0(No drift) 6a. Left Leg: Motor (5-second hold - always test supine) - 0(No drift) 6b. Right Leg: Motor (5-second hold - always test supine) - 0(No drift) 7. Limb Ataxia (finger/nose \\T\\ heel/storm - test with eyes open) - 0(Absent) 8. Sensory Loss (pinprick arms/legs/face) - 0(Normal) 9. Best Language: Aphasia (description/naming/reading) - 0(No aphasia) 10. Dysarthria (speech clarity - read or repeat words) - 0(Normal) 11. Extinction and Inattention (visual/tactile/auditory/spatial/personal) - 0(No abnormality) Initials: jl7 Signatures: Dispatcher [employer] EDMS Volodymyr Trejo MD MD rn Leal, Jahala, RN RN jl7 Soraida Preciado Corrections: (The following items were deleted from the chart) 13:36 12:24 Hospitalization Ordered by David Trejo MD for Inpatient Admission. eb Preliminary diagnosis is Ischemic stroke - subacute; Headache; Visual field defects. Bed requested for Telemetry/MedSurg (Inpatient). Status is Inpatient Admission. Condition is Stable. Problem is new. Symptoms are unchanged. jacob 14:56 13:36 01/31/2020 12:24 Hospitalization Ordered by David Trejo MD for jl7 Inpatient Admission. Preliminary diagnosis is Ischemic stroke - subacute; Headache; Visual field defects. Bed requested for Telemetry/MedSurg (Inpatient). Status is Inpatient Admission. Condition is Stable. Problem is new. Symptoms are unchanged. yves
--- NOTE | 2020-01-31 12:25 | ER ---
Nurse's Notes [facility] Name: Venecia Ware Age: 64 yrs Sex: Female : 1955 Arrival Date: 01/31/2020 Time: 10:54 Bed 5 Private MD: Diagnosis: Ischemic stroke - subacute;Headache;Visual field defects Presentation: 01/30 11:00 Chief complaint: Patient states: KIM with blurred vision x 5 days, denies weakness. jl7 11:00 Coronavirus screen: Client denies travel out of the [place] in the last 14 days. At this jl7 time, the client does not indicate any symptoms associated with coronavirus-19. Ebola Screen: No symptoms or risks identified at this time. Initial Sepsis Screen: Does the patient meet any 2 criteria? No. Patient's initial sepsis screen is negative. Does the patient have a suspected source of infection? No. Patient's initial sepsis screen is negative. Risk Assessment: Do you want to hurt yourself or someone else? Patient reports no desire to harm self or others. Onset of symptoms was January 27, 2020. Care prior to arrival: None. Transition of care: patient was not received from another setting of care. 11:00 Method Of Arrival: Ambulatory jl7 11:00 Acuity: CARLOS A 2 jl7 Triage Assessment: 11:41 Headache History: Denies prior headaches. General: Appears in no apparent distress. jl7 uncomfortable, Behavior is calm, cooperative, appropriate for age. Pain: Complains of pain in KIM Pain currently is 8 out of 10 on a pain scale. Pain began x 5 days Is continuous, Also complains of blurred vision. Neuro: Level of Consciousness is awake, alert, obeys commands, Oriented to person, place, time, situation, Project Inspector are equal bilaterally Moves all extremities. Full function Speech is normal, Facial symmetry appears normal, Reports blurred vision headache. Cardiovascular: Denies chest pain, Patient's skin is warm and dry. Respiratory: Airway is patent Respiratory effort is even, unlabored, Respiratory pattern is regular, symmetrical. Derm: Skin is pink, warm \T\ dry. Historical: - Allergies: 11:41 No Known Allergies; jl7 - PMHx: 11:41 Diabetes - NIDDM; Hyperlipidemia; Hypertension; jl7 - PSHx: 11:41 Heart stents; Cholecystectomy; Hysterectomy; jl7 - Immunization history:: Adult Immunizations unknown. - Social history:: Smoking status: Patient/guardian denies using tobacco, the patient reports quitting approximately 6 years ago. - Family history:: not pertinent. - Hospitalizations: : No recent hospitalization is reported. Screenin:00 VAN Screening: Arm Drift: Patient shows no arm weakness. Patient is VAN negative. jl7 11:42 Abuse screen: Denies threats or abuse. Denies injuries from another. Nutritional jl7 screening: No deficits noted. Tuberculosis screening: No symptoms or risk factors identified. Fall Risk IV access (20 points). Total Gutierrez Fall Scale indicates No Risk (0-24 pts). 12:00 The patient has not been NPO before screening. The patient is currently on the jl7 following diet: Regular The patient is alert, able to follow commands. The patient does not exhibit slurred or garbled speech The patient is not exhibiting difficulty speaking. The patient does not exhibit difficulty understanding words. The patient is able to swallow own secretions with no drooling or need for suction. Patient tolerated one teaspoon of water. No drooling, immediate coughing, gurgling, or clearing of the throat was noted. The patient tolerated 90mL of water. No drooling, immediate coughing, gurgling, or clearing of the throat was noted. The patient passed the bedside swallow screening. Oral medications may be given as ordered. Contact Physician for further diet orders. Provider notified of bedside swallow screening results: Volodymyr Trejo MD. Assessment: 11:42 General: See triage assessment. jl7 12:14 Reassessment: Patient appears in no apparent distress at this time. Patient and/or jl7 family updated on plan of care and expected duration. Pain level reassessed. Patient is alert, oriented x 3, equal unlabored respirations, skin warm/dry/pink. Pain: Complains of pain in right alevism Pain currently is 6 out of 10 on a pain scale. 13:35 Reassessment: Pt reports continued KIM, appears uncomfortable; ERD notified of KIM and jl7 BP, VO for 25 mg Demerol IVP. 14:00 Reassessment: Patient appears in no apparent distress at this time. Patient states jl7 feeling better. Patient states symptoms have improved. Vital Signs: 11:30 BP 176 / 118; Pulse 118; Resp 18; Temp 98.1(O); Pulse Ox 97% on R/A; 5 12:00 BP 180 / 111; Pulse 105; Resp 17; Pulse Ox 93% ; Pain 6/10; jl7 12:36 BP 168 / 100; Pulse 99; Resp 17; Pulse Ox 93% ; Pain 6/10; jl7 13:34 BP 172 / 108; Pulse 96; Resp 17; Pulse Ox 94% ; jl7 13:59 BP 171 / 100; Pulse 88; Resp 16; Pulse Ox 95% ; jl7 14:30 BP 155 / 97; Pulse 91; Resp 15; Pulse Ox 95% ; Pain 0/10; jl7 Issac Coma Score: 12:22 Eye Response: spontaneous(4). Verbal Response: oriented(5). Motor Response: obeys rn commands(6). Total: 15. NIH Stroke Scale Scores: 11:00 NIHSS Score: 0 7 ED Course: 10:54 Patient arrived in ED. as 11:01 Volodymyr Trejo MD is Attending Physician. rn 11:14 Shira Garcia RN is Primary Nurse. 7 11:29 Patient has correct armband on for positive identification. Bed in low position. Call [facility] light in reach. Side rails up X 1. Warm blanket given. electronic device monitor on. Pulse ox on. NIBP on. 11:30 EKG done, by ED staff, reviewed by Volodymyr Trejo MD. [facility] 11:40 Triage completed. jl7 11:41 CT Head Brain wo Cont In Process Unspecified. EDMS 11:41 Arm band placed on right wrist. jl7 11:42 Initial lab(s) drawn, by nd, sent to lab. Inserted saline lock: 20 gauge in right jl7 forearm, using aseptic technique. Blood collected. 12:24 David Trejo MD is Hospitalizing Provider. rn 13:49 No provider procedures requiring assistance completed. Patient admitted, IV remains in jl7 place. intact, No redness/swelling at site. Administered Medications: 11:33 Drug: Zofran (Ondansetron) 4 mg Route: IVP; Site: right forearm; jl7 12:36 Follow up: Response: No adverse reaction 7 11:35 Drug: Decadron - Dexamethasone 10 mg Route: IVP; Site: right forearm; jl7 12:36 Follow up: Response: No adverse reaction jl7 11:50 Drug: morphine 4 mg Route: IVP; Site: right forearm; jl7 12:05 Follow up: Response: No adverse reaction; Pain is decreased jl7 12:05 Drug: Metoprolol TARTRATE (Lopressor) 50 mg Route: PO; jl7 12:34 Follow up: Response: No adverse reaction; Blood pressure is lowered jl7 12:06 Drug: Aspirin Chewable Tablet 324 mg Route: PO; jl7 12:35 Follow up: Response: No adverse reaction jl7 12:10 Drug: foLIC Acid 1 mg Route: IVPB; Site: right forearm; jl7 12:35 Follow up: IV Status: Completed infusion jl7 13:40 Drug: Demerol 25 mg Route: IVP; Site: right forearm; jl7 13:59 Follow up: Response: No adverse reaction; Pain is decreased jl7 Outcome: 12:24 Decision to Hospitalize by Provider. rn 14:30 Admitted to Tele accompanied by tech, room 212, with chart, Report called to NISA Root jl7 14:30 Condition: stable 14:30 Discharge instructions given to patient, Instructed on the need for admit, Demonstrated understanding of instructions. 14:56 Patient left the ED. jl7 NIH Stroke Scale - NIH Stroke Score Date: 01/31/2020 Time: 11:00 Total Score = 0 1a. Level of Consciousness (LOC) - 0(Alert) 1b. Level of Consciousness (LOC) (Year \T\ Age) - 0(Both) 1c. LOC Commands (Open \T\ Closes Eyes/Tire Changer) - 0(Both) 2. Best Gaze (Lateral Gaze Paresis) - 0(Normal) 3. Visual Field Loss - 0(No visual loss) 4. Facial Palsy - 0(Normal) 5a. Left Arm: Motor (10-second hold) - 0(No drift) 5b. Right Arm: Motor (10-second hold) - 0(No drift) 6a. Left Leg: Motor (5-second hold - always test supine) - 0(No drift) 6b. Right Leg: Motor (5-second hold - always test supine) - 0(No drift) 7. Limb Ataxia (finger/nose \T\ heel/storm - test with eyes open) - 0(Absent) 8. Sensory Loss (pinprick arms/legs/face) - 0(Normal) 9. Best Language: Aphasia (description/naming/reading) - 0(No aphasia) 10. Dysarthria (speech clarity - read or repeat words) - 0(Normal) 11. Extinction and Inattention (visual/tactile/auditory/spatial/personal) - 0(No abnormality) Initials: jl7 Signatures: Dispatcher [employer] Cecille Jara Roman, MD MD rn Martinez, Maria [facility] Shira Garcia RN RN jl7 Corrections: (The following items were deleted from the chart) 13:51 13:10 Reassessment: Dr. Hutchinson at bedside jl7 jl7
[2020-01-31] MEDS ORDERED: MEPERIDINE HCL 50 MG/ML ONE (13:51)
[2020-01-31] MEDS ORDERED: METOPROLOL TARTRATE 5 MG/5 ML INJ IV PRN (15:42)
[2020-01-31 15:46] VITALS: BMI 23.8
[2020-01-31] MEDS ORDERED: MORPHINE 2 MG/ML SYR IV PRN (16:19)
--- NOTE | 2020-01-31 16:36 | P.HP ---
Certification for Inpatient Patient admitted to: Inpatient With expected LOS: >2 Midnights Patient will require the following post-hospital care: Home Health Services Practitioner: I am a practitioner with admitting privileges, knowledge of patient current condition, hospital course, and medical plan of care. Services: Services provided to patient in accordance with Admission requirements found in Title 42 Section 412.3 of the Code of Federal Regulations Patient History Date of Service: 01/31/20 Reason for admission: Subacute right parietal occipital CVA History of Present Illness: 64-year-old female, PMH: DM 2, HTN, CAD s/p 2 stents, prior smoker, who presents to ED with right eye vision loss. She states she started noticing her vision worsening from her right eye 5 days ago, and progressively worsened where this morning she feels as though she is "looking through a trash bag", and can't really make anything out. She states she was otherwise in her usual state of health, no recent illness, no recent fevers, chills. She denies any chest pain, shortness of breath, palpitations, abdominal pain, changes in bladder/bowel habits, no rashes or lesions. She does report she has not been compliant with her medications, and and has not taken her "Blood thinner" in over a year. She is unsure the name, but thinks it is Plavix, states it was started after her stents. In the ED labwork was rather unremarkable, CT brain notable for 4-5 cm area of diminished attenuation in the right parieto-occipital region, most likely an acute to subacute nonhemorrhagic CVA. . Diminished attenuation come forms to peripheral right middle cerebral artery branch distribution. Allergies No Known Allergies Allergy (Verified 11/19/19 04:30) Home Medications: Metformin HCl [Glucophage*] 500 mg PO BIDWM #60 tab 11/20/19 hydroCHLOROthiazide [Hydrochlorothiazide*] 12.5 mg PO DAILY #30 cap 11/20/19 Albuterol Inhaler [Ventolin Inhaler*] 2 puff IH Q6H PRN #1 hfa.aer.ad 11/21/19 - Past Medical/Surgical History Has patient received pneumonia vaccine in the past: No Diabetic: Yes -: HTN -: TIA, 2006 -: Endometreosis with Hysterectomy -: Hearing loss since her TIA -: Hyperlipidemia -: DM retinopathy with retinal disease -: Tobacco abuse -: CAD s/p stents x2 -: Hysterectomy -: Cholecystectomy -: Appendectomy -: 2 stent placement in 2013 Psychosocial/ Personal History: Single, Children-2, 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 - Family History Father -: Heart disease, Hypertension, Diabetes Mother -: Hypertension Notes: Aneurysm x 2 - Social History Smoking Status: Former smoker Alcohol use: No CD- Drugs: No Caffeine use: No Place of Residence: Home Review of Systems 10-point ROS is otherwise unremarkable Physical Examination - Vital Signs Temperature: 98.1 F Blood Pressure: 155/97 Pulse: 91 Respirations: 15 - Physical Exam General: Alert, In no apparent distress, Oriented x3 HEENT: Atraumatic, Mucous membr. moist/pink, Other, EOMI, Sclerae nonicteric Neck: Supple, JVD not distended Respiratory: Clear to auscultation bilaterally, Normal air movement Cardiovascular: No edema, Regular rate/rhythm, Normal S1 S2 Gastrointestinal: Soft and benign, Non-distended, No tenderness Musculoskeletal: No erythema, No tenderness Integumentary: No rashes, No breakdown Neurological: Normal speech, Normal strength at 5/5 x4 extr, Sensation intact, Cranial nerves 3-12 intact, Normal affect, Other (R vision: unable to make out how many fingers I was holding up, able to see large objects/shapes moving but no definition) - Studies Laboratory Data (last 24 hrs) 01/31/20 11:24: PT 11.8, INR 1.00, APTT 31.3 01/31/20 11:24: Sodium 137, Potassium 3.9, BUN 12, Creatinine 0.73, Glucose 343 H 01/31/20 11:24: WBC 8.6, Hgb 15.3 H, Hct 46.0 H, Plt Count 266 Assessment and Plan - Advance Directives Does patient have a Living Will: No Does patient have a Durable POA for Healthcare: Yes Physician Review Additional Text: R vision loss 2/2 Subacute right parieto-occipital CVA Headache CAD s/p stent x2 (2013) HTN DM 2 HLD h/o R cataract R vision loss 2/2 Subacute right parieto-occipital CVA Headache -patient with multiple risk factors for ischemic stroke, and has been off several of her medications for for at least 1 year -will further evaluate for causes of her stroke, MRI/MRA, carotid ultrasound, echo with bubble study ordered -monitor on telemetry -neurology consulted, discussed case -received aspirin in the ED and folic acid, continue daily -high-intensity statin ordered -hypertensive in the ED of 170-182/100, received 50 mg of metoprolol p.o., with some improvement to 150-160s/80s -will allow some permissive hypertension, IV Lopressor ordered p.r.n. -morphine for pain control -NPO until swallow eval CAD s/p stent x2 (2013) -confirm home meds and restart as appropriate HTN -confirm home meds and restart as appropriate, allowing for some permissive hypertension as noted above DM 2 -insulin sliding scale Accu-Cheks a.c. HS HLD -confirm home meds, high-intensity stent ordered h/o R cataract -stable Code: Full Diet: NPO until swallow eval, then can ADAT VTE: holding in setting of subacute stroke for concern of hemorrhagic conversion Dispo: anticipate dc home after above workup and patient stabilized in ~48hrs, will have PT/OT eval Time Spent Managing Pts Care (In Minutes): 60
[2020-01-31] MEDS ORDERED: INFLUENZA VACCINE (for 3y+) 0.5 ML DOSE IMVAC ONE (17:00)
[2020-01-31] MEDS: INSULIN -REGULAR HUMAN 50 UNIT/0.5 ML ML SQ SCH ×2 (17:05→20:39)
--- NOTE | 2020-01-31 19:54 | RAD REPORT ---
EXAM DESCRIPTION: MRI - Brain W/Wo Cont - 01/31/2020 7:34 pm CLINICAL HISTORY: Vertigo. COMPARISON: March 31, [address] TECHNIQUE: Axial, sagittal, and coronal magnetic images of the brain were obtained. 20 cc MultiHance administered intravenously FINDINGS: 5.6 centimeter area of abnormal signal within the right occipital parietal region has the appearance of a subacute infarction. Mild enhancement is present. 3.2 centimeter area of abnormal signal within the left frontal lobe has the appearance of a late suba cute infarction. It also demonstrates some enhancement. The ventricles are normal in caliber. An extra-axial fluid collection is not noted. Fluid within the sinuses/mastoids is not seen IMPRESSION: Subacute infarcts right occipital parietal and left frontal lobes
--- NOTE | 2020-01-31 19:59 | RAD REPORT ---
EXAM DESCRIPTION: MRI - MRA Head Wo Cont - 01/31/2020 7:34 pm CLINICAL HISTORY: CVA COMPARISON: None. TECHNIQUE: Magnetic resonance angiogram was performed. 3D MIPS reconstruction performed FINDINGS: The anterior cerebral, middle cerebral, posterior cerebral, distal internal carotid and ba silar arteries do not demonstrate a significant stenosis. An aneurysm is not displayed. Dolichoectasia of the vertebrobasilar artery IMPRESSION: No acute abnormality displayed
[2020-01-31] MEDS ORDERED: POTASSIUM CL SA 10 MEQ TAB PO ONE (20:00)
--- NOTE | 2020-01-31 20:00 | RAD REPORT ---
EXAM DESCRIPTION: MRI - MRA Neck W/Wo Cont - 01/31/2020 7:34 pm CLINICAL HISTORY: CVA COMPARISON: None. TECHNIQUE: Magnetic resonance angiogram of the neck was performed. 19 cc MultiHance was administered intravenously. 3D MIPS reconstruction performed FINDINGS: Moderate stenosis involves the very proximal left common carotid artery. Moderate stenosis involves the right carotid bulb. Moderate narrowing of the proximal right external carotid artery. Mild plaque within the left internal and external carotid arteries The vertebral arteries are codominant without visualization of an abnormality. IMPRESSION: Moderate stenosis right carotid bulb Moderate stenosis. Proximal left common carotid artery NASCET criteria used. Mild 0-49% stenosis Moderate 50-69% stenosis Severe 70-99% stenosis
--- NOTE | 2020-01-31 20:01 | RAD REPORT ---
EXAM DESCRIPTION: USCarotid Artery Bzarwrsho04/2/2020 4:48 pm CLINICAL HISTORY: CVA COMPARISON: None FINDINGS: The velocity of the right internal carotid artery equals 114 cm/sec. The right ICA/CCA rat io 2 The velocity of the left internal carotid artery equals 110 cm/sec. The left ICA/CCA ratio 1.8 Mild plaque is present within the left carotid artery The vertebral arteries demonstrate antegrade flow IMPRESSION: Moderate stenosis right carotid bulb estimated to approximately 50% NASCET criteria used. Mild 0-49% stenosis Moderate 50-69% stenosis Severe 70-99% stenosis
--- NOTE | 2020-01-31 20:10 | CON ---
Reason For Consultation: Consultation called because of stroke. History Of Present Illness: Ms. Ware is a 64-year-old patient with multiple stroke risk factors inc luding diabetes mellitus type 2, hypertension, coronary artery disease, status post 2 cardiac stents, who smoked in the past and comes in with 5 days of complaints of "right vision loss." The patient s ays she thought the vision effected the right eye only, especially as she was trying to do things req uiring close observation like looking through a trek bag and another such things. She otherwise had no problems with moving her face or arms or legs, no loss of sensation, but her vision limited her co ordination and gait because of the poor field. At [facility] when she came in, CT scan of t he head showed about a 5 mm diminished area of attenuation in the right parieto-occipital junction co nsistent with subacute ischemic stroke coming off the posterior right middle cerebral artery branch. During my evaluation, it was actually determined the patient had a left homonymous hemianopsia that was pretty dense for both eyes and she did not have a right eye only problem. She was not taking asp irin and despite being diagnosed with COVID-19 back in October, she did not go home on anticoagulation. Now, she is on aspirin along with other stroke modifying treatment. Past Medical History: As indicated. Dyslipidemia, right eye retinopathy. Allergies: NO KNOWN DRUG ALLERGIES. Medications: At home, Glucophage 500 mg twice daily, hydrochlorothiazide 12.5 mg daily, Ventolin inh aler 2 puffs every 6 hours. Family History: Positive for heart disease, hypertension, diabetes in father and hypertension in mot her and she also has aneurysms. Past Surgical History: Coronary artery disease with 2 stents, hysterectomy, cholecystectomy, appende ctomy. Social History: She smoked in the past, but no recent alcohol or IV drug use. Review of Systems: She reports no recent fevers, chills. No nausea, vomiting, myalgias, arthralgias, or other pain. Sh e does report headache following her stroke. Physical Examination: Vital Signs: Blood pressure ranging from 155 to 186/91 to 101, pulse up to about 93, respiratory rat e 15 to 20, temperature 98.1, oxygen saturation 91% on room air. Weight 130 pounds, height 5 feet 2 inches, BMI 23.8. General: Ms. Ware is resting in bed. Her son and daughter are in the room. HEENT: She is normocephalic, atraumatic. Sclerae anicteric. Oropharynx is pink and moist. Neck: Supple. Chest: Clear. Heart: Regular. Extremities: No significant edema, cyanosis, or clubbing. Neurologic: She does have a clear expression, no difficulty with comprehension, and good labial, una gual, and guttural sounds. Cranial nerves remarkable for a dense left homonymous hemianopsia of both right and left eye. Extraocular movements are intact. Facial sensation is intact. Arms and legs i n terms of motor strength is symmetric and equal and fully strong. Sensation is intact with stocking -glove loss. Reflexes depressed in the upper and lower extremities. She will be ambulated as she ge ts up with physical therapy using gait belt. She did mention that she would ambulate. She would bum p the left arm onto objects like a doorway or edge of a table because she would not see those objects . Laboratory Studies: Complete blood count with differential is essentially unremarkable. White blood cell count is normal, hemoglobin and hematocrit slightly elevated. Coagulation panel shows INR 1. Chemistries are normal except of glucose, which is elevated up to 343, calcium normal at 8.1. Caroti d artery ultrasound pending. Echo pending. Assessment: Ms. Ware is a 64-year-old patient with multiple stroke risk factors, including recent C OVID infection, diabetes mellitus, hypertension, dyslipidemia, coronary artery disease, status post s tents, who has a 5 cm right parieto-occipital junction stroke with dense left homonymous hemianopsia, preserved strength, coordination, and sensation. Of course, the vision does limit her coordination somewhat. Plan: 1.She should have aggressive management of diabetes mellitus. Should begin to lower blood pressures to less than 140 over the next few days. 2.High-dose statin. 3.Aspirin. 4.She will require speech therapy to help with her vision and will require lenses with prisms to hel p bring in the left visual field perhaps in a few months when the visual field deficit settles to pro bably its best restriction. 5.After discharge, follow up with Dr. Serrano within a month. PRECIOUS/CHADD Voice ID: [id number] Report ID: [id number]
[2020-01-31] MEDS ORDERED: ATORVASTATIN 80 MG TAB PO SCH (21:00)
--- NOTE | 2020-02-01 04:05 | P.PN ---
Date of Service: 02/01/20 Was called by nursing staff and inform the patient had a 12 beat run of ventricular tachycardia. Patient was asymptomatic, blood pressure within normal limits at that time. Cardiology consult added, meds and vital signs reviewed. Patient has remained relatively hypertensive throughout hospitalization, added a beta-noe with parameters. Appreciate further input from cardiology.
[2020-02-01] MEDS ORDERED: METOPROLOL TAR 25 MG TAB PO SCH (06:00)
[2020-02-01 06:15] LABS: Absolute Lymphocytes (CBC) 1.8 K/uL (0.7-4.9); Basophils % 0.3 % (0-1.3); Hematocrit 43.6 % (36.0-45.0); Lymphocytes % 11.2 % (15.3-44.8); MPV 9.5 fL (7.6-11.3); RBC Red Blood Cell Count 5.08 M/uL (3.86-4.86)
[2020-02-01 06:17] LABS: Protime INR 1.03
[2020-02-01 06:37] LABS: ALT/SGPT 23 U/L (12-78); AST/SGOT 12 U/L (15-37); Albumin 3.3 g/dL (3.4-5.0); Alkaline Phosphatase 98 U/L (45-117); BUN Blood Urea Nitrogen 18 mg/dL (7-18); Bicarbonate 24 mmol/L (21-32); Bilirubin Total 0.4 mg/dL (0.2-1.0); Glucose Level 253 mg/dL (74-106); HDL Cholesterol 41 mg/dL (40-60); LDL Cholesterol, Calculated 153 (<130); Magnesium 1.9 mg/dL (1.8-2.4); Potassium 4.7 mmol/L (3.5-5.1); Protein, Total 7.3 g/dL (6.4-8.2); Sodium Level 137 mmol/L (136-145)
[2020-02-01 07:44] VITALS: O2SAT 95
[2020-02-01] MEDS ORDERED: METFORMIN HCL 500 MG TAB PO SCH (08:00)
--- NOTE | 2020-02-01 08:21 | EKG ---
Test Date: 2020-01-31 Test Time: 12:26:50 Wet Finisher Wool: FREDDY MEASUREMENT RESULTS: Intervals: Rate: 106 MD: 128 QRSD: 84 QT: 372 QTc: 494 [place]: P: 48 MD: 128 QRS: -14 T: 5 INTERPRETIVE STATEMENTS: Sinus tachycardia Possible Left atrial enlargement Borderline ECG Compared to ECG 11/18/2019 20:27:54 Left ventricular hypertrophy no longer present Electronically Signed On 02-01-20 08:19:30 CDT by Alistair Clifton
[2020-02-01] MEDS: INSULIN -REGULAR HUMAN 50 UNIT/0.5 ML ML SQ SCH ×2 (08:40→11:42)
[2020-02-01] MEDS ORDERED: FOLIC ACID 1 MG TABLET PO SCH (09:00)
[2020-02-01] MEDS ORDERED: ASPIRIN EC 81 MG TAB PO SCH (09:00)
[2020-02-01 09:16] LABS: Blood Morphology Comment NOT SEEN (NOT SEEN); Platelet Estimate ADEQ; White Blood Cell Scan OK (OK)
[2020-02-01] MEDS ORDERED: ACETAMINOPHEN 500 MG TAB PO PRN (11:32)
--- NOTE | 2020-02-01 13:18 | CON ---
Date of Consultation: 01/31/2020 Reason For Consultation: Ventricular tachycardia. History Of Present Illness: Ms. Ware is a 64-year-old white woman, has had a history of diabetes, h ypertension, dyslipidemia. She had coronary artery disease status post stents in 2013 and has been l ost to follow up. She has not been taking any statin because she does not tolerate it. She takes me tformin, inhalers, and hydrochlorothiazide. Has recently had a COVID positive test also. She came i n with a CVA and MRI showed a 5 cm right parieto-occipital CVA. Carotid Doppler showed a 50% right i nternal carotid artery stenosis. While she had been evaluated, she had a short run of ventricular ta chycardia without any hemodynamic compromise. The patient denied any shortness of breath, chest pain , nausea, vomiting, diaphoresis, PND, orthopnea, pedal edema, or palpitation. Past Medical History: As stated above. Allergies: SHE HAS ALLERGIES TO STATINS WITH SEVERE MYALGIA. Review of Systems: Negative. Social History: Negative. Family History: Noncontributory. Physical Examination: Vital Signs: Her initial pressure was 181/101. Her pressure now is 120/74. Her glucose was 457. HEENT: Negative. Neck: Supple with no bruit, lymphadenopathy, JVD, or thyromegaly. Chest: Clear to auscultation and percussion. Cardiac: Revealed a regular rhythm and rate. No murmurs, gallops, or rubs. Abdomen: Benign. Extremities: Revealed no clubbing, cyanosis, or edema. Diagnostic Data: EKG was nonspecific. Potassium and magnesium were normal. White count was 16,000, glucose was 457. Carotid Doppler for a 50% right ICH. Chest x-ray is negative. Impression And Plan: 1.This is a patient with history of coronary artery disease, status post PCI and stent in 2013, lost to followup. I think she needs to be on aspirin, Plavix. We should attempt a different statin or a t least Zetia considering her right carotid stenosis and her CVA. I think she may need to have a car otid angiogram as Dr. Serrano feels that the right RCA stenosis could be responsible for this. She needs to have her cardiac status re-evaluated. She has not had a stress test since 2013. I will marsha e an arrangement for that as an outpatient. Echocardiogram is pending. 2.Hypertension, better controlled now. 3.Diabetes, poorly controlled. 4.Dyslipidemia. I will continue to follow her along. MAGDY/CHADD Voice ID: [id number] Report ID: [id number]
[2020-02-01 13:23] VITALS: BP 122/79; TEMP 98
--- NOTE | 2020-02-01 14:55 | P.DS ---
Admission Date: 01/31/20 Discharge Date: 02/01/20 Disposition: ROUTINE DISCHARGE Discharge Condition: GOOD Reason for Admission: Subacute right parietal occipital CVA Consultations: Neurology - Dr. Serrano Cardiology - Dr. Clifton Procedures: CT Head (01/30): A 4-5 centimeter area of diminished attenuation in the right parieto-occipital region is most likely an acute to subacute nonhemorrhagic CVA. Mass lesion is a much less likely etiology. The area of diminished attenuation conforms to peripheral right middle cerebral artery branch distribution. Brain MRI & MRA (01/30): 5.6 centimeter area of abnormal signal within the right occipital parietal region has the appearance of a subacute infarction. Mild enhancement is present. 3.2 centimeter area of abnormal signal within the left frontal lobe has the appearance of a late subacute infarction. It also demonstrates some enhancement. The ventricles are normal in caliber. An extra-axial fluid collection is not noted. Fluid within the sinuses/mastoids is not seen The anterior cerebral, middle cerebral, posterior cerebral, distal internal carotid and basilar arteries do not demonstrate a significant stenosis. An aneurysm is not displayed. Dolichoectasia of the vertebrobasilar artery Neck MRA (01/30): Moderate stenosis right carotid bulb. Moderate stenosis. Proximal left common carotid artery; Moderate: 50-69% stenosis Carotid U/S (01/30): Moderate stenosis right carotid bulb estimated to approximately 50%. Vertebral arteries demonstrate antegrade flow. Mild plague is present within the left carotid artery. Problem List: 5 cm right parieto-occipital junction stroke & 3.2 cm Left frontal lob stroke with dense left homonymous hemianopsia, preserved strength, coordination, and sensation R frontal Headache CAD s/p stent x2 (2013) not on ASA or plavix COVID+ (October 2019) HTN uncontrolled DM2 HLD h/o R cataract Brief History of Present Illness: 64-year-old female, PMH: DM 2, HTN, CAD s/p 2 stents, prior smoker, h/o COVID+ in October 2019 who presents to ED with reported right eye vision loss that progressively worsened over the prior 5 days, associated with R frontal headache. In the ED: CT brain notable for 4-5 cm area of diminished attenuation in the right parieto-occipital region, most likely an acute to subacute nonhemorrhagic CVA. Diminished attenuation come forms to peripheral right middle cerebral artery branch distribution. She reported noncompliance with her medications and had not been taking any in several months - 1 year. Hospital Course: Patient was admitted and underwent further evaluation. Imaging studies as noted above. On exam she was found to have left homonymous hemianopsia. Neurology was consulted who agreed with treatment with aspirin, plavix, folic acid, and high- intensity statin. Overnight she had a 12 beat run of vtach and cardiology was consulted given her history of CAD s/p stenting and noncompliance. Due to her admission on the weekend, an echocardiogram was unable to be performed. Cardiology will arrange for outpatient echocardiogram and likely stress testing in the near future given patient has been noncompliant and off aspirin + plavix for over a year. Patient was evaluated by PT and did well. Case management was consulted to assist in setting up Home health with physical therapy and occupational therapy. She will require lenses with prisms to help bring in the left visual field in a few months. Unclear specific etiology of her ischemic stroke, however, she has multiple risk factors: recent COVID infection, HTN, CAD s/p stents x2, HLD, and uncontrolled DM2. An A1c was obtained (12.6). Patient was counselled on importance of compliance. Insulin initiation was discussed, however patient was concerned with vaca and administration and stated she would rather wait to f/u with PCP for initiation. She stopped taking metformin a few months ago due to running out of medication. She was sent a new prescription for 1000mg BID and instructed to maintain a glucose log to take to her PCP. She was noted to be hypertensive on admission (180s/100) and had improvement with metoprolol 25mg BID. Follow up with PCP within 1 week Follow up with Cardiology (Dr. Clifton) in 2-3 weeks Follow up with Neurology (Dr. Serrano) in 4 weeks. Medication prescriptions given on discharge: Aspirin 81 mg daily Plavix (clopidogrel) 75 mg daily Metoprolol 25 mg twice a day atorvastatin (Lipitor) 80 mg daily at bedtime Folic acid 1 mg daily. Tylenol 3 as needed for severe headache Metformin 1000 mg twice a day Vital Signs/Physical Exam: Temp Pulse Resp BP Pulse Ox 98 F 80 16 122/79 94 02/01/20 12:00 02/01/20 12:00 02/01/20 12:00 02/01/20 12:00 02/01/20 12:00 General: Alert, In no apparent distress HEENT: Mucous membr. moist/pink Neck: Supple, JVD not distended Respiratory: Clear to auscultation bilaterally, Normal air movement Cardiovascular: No edema, Regular rate/rhythm, Normal S1 S2 Gastrointestinal: Soft and benign, Non-distended, No tenderness Musculoskeletal: No erythema, No tenderness Integumentary: No rashes Neurological: Normal speech, Normal strength at 5/5 x4 extr, Sensation intact, Normal affect, Other (dense left homonymous hemianopsia) Laboratory Data at Discharge: WBC 16.5 K/uL (4.3-10.9) H D 02/01/20 05:21 Hgb 14.4 g/dL (12.0-15.0) 02/01/20 05:21 Hct 43.6 % (36.0-45.0) 02/01/20 05:21 Plt Count 279 K/uL (152-406) 02/01/20 05:21 PT 12.1 SECONDS (9.5-12.5) 02/01/20 05:21 INR 1.03 02/01/20 05:21 APTT 31.3 SECONDS (24.3-36.9) 01/31/20 11:24 Sodium 137 mmol/L (136-145) 02/01/20 05:21 Potassium 4.7 mmol/L (3.5-5.1) 02/01/20 05:21 BUN 18 mg/dL (7-18) 02/01/20 05:21 Creatinine 0.56 mg/dL (0.55-1.3) 02/01/20 05:21 Glucose 253 mg/dL (74-106) H 02/01/20 05:21 Magnesium 1.9 mg/dL (1.8-2.4) 02/01/20 05:21 Total Bilirubin 0.4 mg/dL (0.2-1.0) 02/01/20 05:21 AST 12 U/L (15-37) L 02/01/20 05:21 ALT 23 U/L (12-78) 02/01/20 05:21 Alkaline Phosphatase 98 U/L (45-117) 02/01/20 05:21 Triglycerides 92 mg/dL (<150) 02/01/20 05:21 Cholesterol 212 mg/dL (<200) H 02/01/20 05:21 HDL Cholesterol 41 mg/dL (40-60) 02/01/20 05:21 Cholesterol/HDL Ratio 5.17 02/01/20 05:21 Home Medications: Albuterol Inhaler [Ventolin Inhaler*] 2 puff IH Q6H PRN #1 hfa.aer.ad 11/21/19 Aspirin [Aspirin EC 81 MG] 81 mg PO DAILY #30 tablet. 02/01/20 Atorvastatin Calcium [Lipitor] 80 mg PO BEDTIME 30 Days #30 tab 02/01/20 Clopidogrel Bisulfate [Plavix] 75 mg PO DAILY 30 Days #30 tablet 02/01/20 Codeine/APAP [Tylenol W/Codeine #3 tab] 1 tab PO Q6HP PRN 3 Days #10 tab 02/01/20 Folic Acid 1 mg PO DAILY 30 Days #30 tablet 02/01/20 Metformin HCl [Glucophage] 1,000 mg PO BID 30 Days #60 tablet 02/01/20 Metoprolol Tartrate [Lopressor*] 1 tab PO BID 30 Days #60 tab 02/01/20 New Medications: Codeine/APAP [Tylenol W/Codeine #3 tab] 1 tab PO Q6HP PRN 3 Days #10 tab PRN Reason: Pain Aspirin [Aspirin EC 81 MG] 81 mg PO DAILY #30 tablet. Folic Acid 1 mg PO DAILY 30 Days #30 tablet Metformin HCl [Glucophage] 1,000 mg PO BID 30 Days #60 tablet Atorvastatin Calcium [Lipitor] 80 mg PO BEDTIME 30 Days #30 tab Metoprolol Tartrate [Lopressor*] 1 tab PO BID 30 Days #60 tab Clopidogrel Bisulfate [Plavix] 75 mg PO DAILY 30 Days #30 tablet Patient Discharge Instructions: Follow up with PCP within 1 week. -you will likely need to be started on insulin. -maintain a glucose log (fasting in the morning, can check at lunch and at night). Follow up with Cardiology (Dr. Clifton) in 2-3 weeks. Follow up with Neurology (Dr. Serrano) in 4 weeks. Medications on discharge. Aspirin 81 mg daily. Plavix (clopidogrel) 75 mg daily. Metoprolol 25 mg twice a day. atorvastatin (Lipitor) 80 mg daily at bedtime. Folic acid 1 mg daily. Tylenol 3 as needed for severe pain. Metformin 1000 mg twice a day Diet: ADA Activity: Fall precautions (No driving) Followup: Alistair Clifton MD [ACTIVE - CAN ADMIT] - (cinder worker- follow up in 2-3 weeks, call to schedule an appointment ) Jose Serrano MD [ASSOCIATE-ACTIVE - CAN ADMIT] - (neurologist- follow up in 4 weeks, call to schedule an appointment ) Zulema Gamez MD [Primary Care Provider] - 1 Week (PCP- call to schedule an appointment ) Time spent managing pt's care (in minutes): 40
== END 2020-02-01 16:05 | disposition home or self-care (01) | DRG 65 ==
LOC: ER 10:52 → ERHOLD 13:16 → 2ND 14:41
PROVIDERS: ADMIT Hospitalist; ATTEND Hospitalist
DX: I63.9 Cerebral infarction, unspecified (principal); I47.2 Ventricular tachycardia; E11.9 Type 2 diabetes mellitus without complications; I10 Essential (primary) hypertension; H54.61 Unqualified visual loss, right eye, normal vision left eye; E78.5 Hyperlipidemia, unspecified; H53.462 Homonymous bilateral field defects, left side; I25.10 Atherosclerotic heart disease of native coronary artery without angina pectoris; R29.700 NIHSS score 0; R40.2410 Glasgow coma scale score 13-15, unspecified time; R51.9 Headache, unspecified; Z95.5 Presence of coronary angioplasty implant and graft; Z87.891 Personal history of nicotine dependence; Z91.14 Patient's other noncompliance with medication regimen; Z79.84 Long term (current) use of oral hypoglycemic drugs; Z79.899 Other long term (current) drug therapy; Z90.710 Acquired absence of both cervix and uterus; Z90.49 Acquired absence of other specified parts of digestive tract; Z86.19 Personal history of other infectious and parasitic diseases; Z88.8 Allergy status to other drugs, medicaments and biological substances; Z20.828 Contact with and (suspected) exposure to other viral communicable diseases
CPT/HCPCS: 36415; 70450; 70544; 70549; 70553; 80048; 80053; 80061; 82947; 83036; 83735; 85025; 85610; 85652; 85730; 93005; 93880; 94760; 96365; 96375; 99285; A9577; J1100; J2175; J2270; J2405; U0002

== ENCOUNTER 2020-02-02 17:57 | Inpatient (IN) | payer BC ==
[2020-02-02] MEDS ORDERED: METOCLOPRAMIDE 10 MG/2mL INJ ONE (20:34)
[2020-02-02] MEDS ORDERED: DIPHENHYDRAMINE 50 MG/ML VIAL ONE (20:34)
[2020-02-02] MEDS ORDERED: NA CHLORIDE 0.9% 1,000 ML ONE (20:35)
[2020-02-02 20:39] LABS: Absolute Lymphocytes (CBC) 1.8 K/uL (0.7-4.9); Basophils % 0.9 % (0-1.3); Hematocrit 42.7 % (36.0-45.0); Lymphocytes % 16.4 % (15.3-44.8); MPV 8.9 fL (7.6-11.3); RBC Red Blood Cell Count 4.96 M/uL (3.86-4.86)
[2020-02-02 20:43] LABS: Protime INR 1.01
[2020-02-02 21:01] LABS: ALT/SGPT 19 U/L (12-78); AST/SGOT 14 U/L (15-37); Albumin 3.4 g/dL (3.4-5.0); Alkaline Phosphatase 99 U/L (45-117); BUN Blood Urea Nitrogen 17 mg/dL (7-18); Bicarbonate 25 mmol/L (21-32); Bilirubin Direct 0.1 mg/dL (0-0.2); Bilirubin Total 0.4 mg/dL (0.2-1.0); Glucose Level 277 mg/dL (74-106); NT PRO-BNP 410 pg/mL (<125); Protein, Total 7.3 g/dL (6.4-8.2); Sodium Level 135 mmol/L (136-145); Troponin (Emerg Dept Use Only) 0.05 ng/mL (0.0-0.045)
[2020-02-02 21:06] LABS: Magnesium 1.4 mg/dL (1.8-2.4)
--- NOTE | 2020-02-02 23:44 | ER ---
Nurse's Notes [facility] Name: Venecia Ware Age: 64 yrs Sex: Female : 1955 Arrival Date: 02/02/2020 Time: 17:58 Bed 20 Private MD: Diagnosis: Chest pain, unspecified;Dizziness and giddiness;Headache Presentation: 02/01 18:07 Chief complaint: Patient states: "I am having a headache on the back and across my jd3 forehead. I was diagnosed with a stroke on Monday.". Coronavirus screen: At this time, the client does not indicate any symptoms associated with coronavirus-19. Ebola Screen: Patient negative for fever greater than or equal to 101.5 degrees Fahrenheit, and additional compatible Ebola Virus Disease symptoms. Initial Sepsis Screen: Does the patient meet any 2 criteria? No. Patient's initial sepsis screen is negative. Does the patient have a suspected source of infection? No. Patient's initial sepsis screen is negative. Risk Assessment: Do you want to hurt yourself or someone else? Patient reports no desire to harm self or others. Onset of symptoms was February 02, 2020 at 12:00. 18:07 Method Of Arrival: Wheelchair jd3 18:07 Acuity: CARLOS A 3 jd3 Triage Assessment: 18:11 Headache History: Denies prior headaches. Pain: Complains of pain in forehead and back jd3 of head. Neuro: Picker And Packer are equal bilaterally. 20:05 General: Appears in no apparent distress. Pain: Pain Pain began 1 day ago. Also ll2 complains of no other associated symptoms. Historical: - Allergies: 18:11 No Known Allergies; jd3 - Home Meds: 18:11 Aspirin Oral [Active]; Plavix Oral [Active]; Metoprolol Tartrate Oral [Active]; jd3 atorvastatin oral oral [Active]; Tylenol-Codeine #3 oral oral [Active]; Folic Acid Oral [Active]; Metformin Oral [Active]; - PMHx: 18:11 Hyperlipidemia; Diabetes - NIDDM; Hypertension; jd3 - PSHx: 18:11 Heart stents; Cholecystectomy; Hysterectomy; jd3 - Immunization history:: Adult Immunizations up to date. - Social history:: Smoking status: Patient denies any tobacco usage or history of. Screenin:17 VAN Screening: Arm Drift: Patient shows no arm weakness. Patient is VAN negative. jd3 20:04 Abuse screen: Denies threats or abuse. Nutritional screening: No deficits noted. ll2 Tuberculosis screening: No symptoms or risk factors identified. Fall Risk None identified. Assessment: 20:02 General: Appears in no apparent distress. Behavior is calm, cooperative, appropriate ll2 for age. Pain: Complains of pain in head. 20:03 Neuro: Level of Consciousness is awake, alert, obeys commands, Oriented to person, ll2 place, time, situation. Cardiovascular: Capillary refill < 3 seconds Patient's skin is warm and dry. Respiratory: Airway is patent Respiratory effort is even, unlabored, Respiratory pattern is regular, symmetrical. GI: No signs and/or symptoms were reported involving the gastrointestinal system. : No signs and/or symptoms were reported regarding the genitourinary system. EENT: No signs and/or symptoms were reported regarding the EENT system. Derm: Skin is intact, is healthy with good turgor, Skin is dry, Skin is pink, warm \\T\\ dry. Skin temperature is warm. Musculoskeletal: Circulation, motion, and sensation intact. Range of motion: intact in all extremities. 21:07 Reassessment: lab called with mag level of 1.4, ERD notified. ll2 21:47 Reassessment: Patient and/or family updated on plan of care and expected duration. Pain ll2 level reassessed. Patient is alert, oriented x 3, equal unlabored respirations, skin warm/dry/pink. 22:17 Reassessment: Patient and/or family updated on plan of care and expected duration. Pain ll2 level reassessed. Patient is alert, oriented x 3, equal unlabored respirations, skin warm/dry/pink. 23:30 Reassessment: No changes from previously documented assessment. Patient and/or family ll2 updated on plan of care and expected duration. Pain level reassessed. Patient is alert, oriented x 3, equal unlabored respirations, skin warm/dry/pink. aided pt tp bathroom. 02/02 07:00 Reassessment: RECD REPORT FROM ENA PAULA. 64YO WF P/W KIM, RECENT CVA, ELEVATED TROP. PT bp ON ER HOLD, [email or web address] FOR FURTHER DOCUMENTATION. 08:03 Reassessment: REPORT TO JIMENEZ PAULA FOR RM 204. bp Vital Signs: 02/01 18:06 BP 165 / 98; Pulse 105; Resp 17 S; Temp 97.4(TE); Pulse Ox 99% on R/A; Weight 58.97 kg jd3 (R); Height 5 ft. 2 in. (157.48 cm) (R); Pain 10/10; 20:30 BP 185 / 102; Pulse 82; Resp 16; Pulse Ox 90% on R/A; ll2 21:53 BP 151 / 82; Pulse 86; Resp 15; Pulse Ox 97% on R/A; ll2 23:00 BP 152 / 80; Pulse 90; Resp 16; Pulse Ox 96% on R/A; ll2 18:06 Body Mass Index 23.78 (58.97 kg, 157.48 cm) j ED Course: 17:58 Patient arrived in ED. as 18:07 Arm band placed on. jd3 18:08 EKG completed in triage. Results shown to MD. [facility] 18:09 Triage completed. [facility] 19:43 Reji Walls MD is Attending Physician. [facility] 19:47 Eugenie Palma RN is Primary Nurse. ll2 20:04 Patient has correct armband on for positive identification. Call light in reach. Side ll2 rails up X2. Pulse ox on. NIBP on. 20:30 Inserted saline lock: 20 gauge in right forearm, using aseptic technique. Blood ea collected. 21:06 Notified ED physician of a critical lab result(s). MG 1.4. ca1 21:20 XRAY Chest (1 view) In Process Unspecified. EDMS 21:31 CT Head Brain wo Cont In Process Unspecified. EDMS 23:41 David Trejo MD is Hospitalizing Provider. [facility] 02/02 00:18 No provider procedures requiring assistance completed. Patient admitted, IV remains in ea place. Administered Medications: 02/01 20:32 Drug: Benadryl 25 mg Route: IVP; Site: right forearm; ea 22:18 Follow up: Response: No adverse reaction 2 20:33 Drug: NS 0.9% 1000 ml Route: IV; Rate: 1000 ml; Site: right forearm; ea 02/02 00:19 Follow up: Response: No adverse reaction; IV Status: Completed infusion 2 02/01 20:37 Drug: Reglan 10 mg Route: IVP; Site: right forearm; ea 22:18 Follow up: Response: No adverse reaction ll2 02/02 00:19 Drug: Magnesium Sulfate 1 grams Route: IVPB; Infused Over: 1 hrs; Site: left forearm; ll2 Outcome: 02/01 23:42 Decision to Hospitalize by Provider. [facility] 02/02 00:18 Admitted to ER Hold. Please see [facility] for further documentation. ea Condition: stable Instructed on the need for admit, Demonstrated understanding of instructions. 08:25 Patient left the ED. bp Signatures: Dispatcher [employer] Cecille Jara Elena RN Sanju Roach ea, RN RN jMark Mcgovern RN RN bp Alyse Lyon RN RN ca1 [place], Lacie, RN RN ll2 Reji Walls MD MD [facility]
--- NOTE | 2020-02-02 23:44 | EDPHYS ---
Physician Documentation [facility] Name: Venecia Ware Age: 64 yrs Sex: Female : 1955 Arrival Date: 02/02/2020 Time: 17:58 Bed 20 Private MD: ED Physician Reji Walls HPI: 02/01 20:36 This 64 yrs old Female presents to ER via Wheelchair with complaints of mh7 Dizziness, Headache. 20:36 The patient presents with dizziness, sense of spinning. Onset: The symptoms/episode mh7 began/occurred today, at 03:00. Context: occurred at home, occurred while the patient was lying down, just prior to the episode the patient experienced nausea. Modifying factors: The symptoms are alleviated by nothing, the symptoms are aggravated by movement of head, standing up. Associated signs and symptoms: Pertinent positives: chest pain, headache, nausea, Pertinent negatives: abdominal pain, agitation, ataxia, blurred vision, combativeness, confusion, diaphoresis, focal weakness, head injury, near-syncope, numbness, palpitations, seizure, shortness of breath, syncope, tingling, vomiting. Severity of symptoms: At their worst the symptoms were moderate today, in the emergency department the symptoms are unchanged. Patient's baseline: Neuro: alert and fully oriented, Motor: no deficits, Ambulation: walks without assistance, Speech: normal, The patient has a previous history of CVA. The patient has been recently been admitted at [facility], was discharged yesterday. Patient was admitted here 2 days ago for stroke and discharged yesterday. She complains of dizziness, headache, nausea, and chest pain.. Historical: - Allergies: 18:11 No Known Allergies; jd3 - Home Meds: 18:11 Aspirin Oral [Active]; Plavix Oral [Active]; Metoprolol Tartrate Oral [Active]; jd3 atorvastatin oral oral [Active]; Tylenol-Codeine #3 oral oral [Active]; Folic Acid Oral [Active]; Metformin Oral [Active]; - PMHx: 18:11 Hyperlipidemia; Diabetes - NIDDM; Hypertension; jd3 - PSHx: 18:11 Heart stents; Cholecystectomy; Hysterectomy; jd3 - Immunization history:: Adult Immunizations up to date. - Social history:: Smoking status: Patient denies any tobacco usage or history of. ROS: 20:49 Constitutional: Negative for fever, chills, and weight loss, Eyes: Negative for injury, mh7 pain, redness, and discharge, ENT: Negative for injury, pain, and discharge, Neck: Negative for injury, pain, and swelling, Respiratory: Negative for shortness of breath, cough, wheezing, and pleuritic chest pain, Back: Negative for injury and pain, : Negative for injury, bleeding, discharge, and swelling, MS/Extremity: Negative for injury and deformity, Skin: Negative for injury, rash, and discoloration, Psych: Negative for depression, anxiety, suicide ideation, homicidal ideation, and hallucinations, Allergy/Immunology: Negative for hives, rash, and allergies, Endocrine: Negative for neck swelling, polydipsia, polyuria, polyphagia, and marked weight changes, Hematologic/Lymphatic: Negative for swollen nodes, abnormal bleeding, and unusual bruising. Exam: 20:49 Head/Face: Normocephalic, atraumatic. Eyes: Pupils equal round and reactive to light, mh7 extra-ocular motions intact. Lids and lashes normal. Conjunctiva and sclera are non-icteric and not injected. Cornea within normal limits. Periorbital areas with no swelling, redness, or edema. Neck: Trachea midline, no thyromegaly or masses palpated, and no cervical lymphadenopathy. Supple, full range of motion without nuchal rigidity, or vertebral point tenderness. No Meningismus. 20:49 Cardiovascular: Regular rate and rhythm with a normal S1 and S2. No gallops, murmurs, or rubs. Normal PMI, no JVD. No pulse deficits. Respiratory: Lungs have equal breath sounds bilaterally, clear to auscultation and percussion. No rales, rhonchi or wheezes noted. No increased work of breathing, no retractions or nasal flaring. Abdomen/GI: Soft, non-tender, with normal bowel sounds. No distension or tympany. No guarding or rebound. No evidence of tenderness throughout. Back: No spinal tenderness. No costovertebral tenderness. Full range of motion. Skin: Warm, dry with normal turgor. Normal color with no rashes, no lesions, and no evidence of cellulitis. MS/ Extremity: Pulses equal, no cyanosis. Neurovascular intact. Full, normal range of motion. Neuro: Awake and alert, GCS 15, oriented to person, place, time, and situation. Cranial nerves II-XII grossly intact. Motor strength 5/5 in all extremities. Sensory grossly intact. Cerebellar exam normal. Normal gait. Psych: Awake, alert, with orientation to person, place and time. Behavior, mood, and affect are within normal limits. 20:49 Constitutional: The patient appears in no acute distress, alert, awake, uncomfortable. 20:49 Chest/axilla: Inspection: normal, Palpation: tenderness, that is mild, of the anterior aspect of left upper chest, that partially reproduces the patient's complaints. Vital Signs: 18:06 BP 165 / 98; Pulse 105; Resp 17 S; Temp 97.4(TE); Pulse Ox 99% on R/A; Weight 58.97 kg jd3 (R); Height 5 ft. 2 in. (157.48 cm) (R); Pain 10/10; 20:30 BP 185 / 102; Pulse 82; Resp 16; Pulse Ox 90% on R/A; ll2 21:53 BP 151 / 82; Pulse 86; Resp 15; Pulse Ox 97% on R/A; ll2 23:00 BP 152 / 80; Pulse 90; Resp 16; Pulse Ox 96% on R/A; ll2 18:06 Body Mass Index 23.78 (58.97 kg, 157.48 cm) jd3 MDM: 20:14 Patient medically screened. [facility] 23:40 Differential diagnosis: cardiac arrhythmia, CVA, idiopathic dizziness, near-syncope, mh7 TIA, Chest Pain, Acute NV. Data reviewed: vital signs, nurses notes, old medical records, lab test result(s), cardiac enzymes, CBC, electrolytes, urinalysis, EKG, radiologic studies, CT scan, plain films. Data interpreted: Pulse oximetry: on room air is 96 %. Interpretation: normal. Counseling: I had a detailed discussion with the patient and/or guardian regarding: the historical points, exam findings, and any diagnostic results supporting the discharge/admit diagnosis, the presence of at least one elevated blood pressure reading (>120/80) during this emergency department visit, lab results, radiology results, the need for further work-up and treatment in the hospital. Response to treatment: the patient's symptoms have markedly improved after treatment. 02/01 20:16 Order name: Basic Metabolic Panel; Complete Time: 21:25 7 02/01 20:16 Order name: CBC with Diff; Complete Time: 21:25 7 02/01 20:16 Order name: LFT's; Complete Time: 21:25 7 02/01 20:16 Order name: Magnesium; Complete Time: 21:25 7 02/01 20:16 Order name: NT PRO-BNP; Complete Time: 21:25 7 02/01 20:16 Order name: PT-INR; Complete Time: 21:25 7 02/01 20:16 Order name: Troponin (emerg Dept Use Only); Complete Time: 21:25 7 02/01 20:16 Order name: XRAY Chest (1 view) [facility] 02/01 20:16 Order name: CT Head Brain wo Cont 7 02/02 03:44 Order name: Troponin I EDMS 02/02 05:52 Order name: CBC with Automated Diff EDMS 02/02 05:54 Order name: Basic Metabolic Panel EDMS 02/02 05:54 Order name: Magnesium EDMS 02/01 20:16 Order name: EKG; Complete Time: 20:17 7 02/01 20:16 Order name: Cardiac monitoring; Complete Time: 00:21 7 02/01 20:16 Order name: EKG - Nurse/Tech; Complete Time: 00:21 7 02/01 20:16 Order name: IV Saline Lock; Complete Time: 20:35 7 02/01 20:16 Order name: Labs collected and sent; Complete Time: 20:35 7 02/01 20:16 Order name: O2 Per Protocol; Complete Time: 20:35 [facility] 02/01 20:16 Order name: O2 Sat Monitoring; Complete Time: 20:36 mh7 Administered Medications: 20:32 Drug: Benadryl 25 mg Route: IVP; Site: right forearm; ea 22:18 Follow up: Response: No adverse reaction ll2 20:33 Drug: NS 0.9% 1000 ml Route: IV; Rate: 1000 ml; Site: right forearm; ea 02/02 00:19 Follow up: Response: No adverse reaction; IV Status: Completed infusion 2 02/01 20:37 Drug: Reglan 10 mg Route: IVP; Site: right forearm; ea 22:18 Follow up: Response: No adverse reaction ll2 02/02 00:19 Drug: Magnesium Sulfate 1 grams Route: IVPB; Infused Over: 1 hrs; Site: left forearm; ll2 Disposition: 02/02/20 23:42 Hospitalization ordered by David Trejo for Observation. Preliminary diagnosis are Chest pain, unspecified, Dizziness and giddiness, Headache. - Bed requested for Telemetry/MedSurg (observation). - Status is Observation. bp - Condition is Stable. - Problem is new. - Symptoms have improved. Signatures: Dispatcher [employer] EDMS Jen Jenkins bd David, Gage, CANCER REGISTRY MANAGER-C CANCER REGISTRY MANAGER-Cla1 Margie Cuevas, RN RN cg Pura Gonzalez, RN RN Sanju Santana RN RN jMark Mcgovern RN RN Eugenie Correia, RN RN ll2 Reji Walls MD MD mh7 Corrections: (The following items were deleted from the chart) 02/01 23:55 23:42 Hospitalization Ordered by David Trejo MD for Observation. Preliminary cg diagnosis is Chest pain, unspecified; Dizziness and giddiness; Headache. Bed requested for Telemetry/MedSurg (observation). Status is Observation. Condition is Stable. Problem is new. Symptoms have improved. [facility] 02/02 07:31 02/01 23:55 02/02/2020 23:42 Hospitalization Ordered by David Trejo MD for bd Observation. Preliminary diagnosis is Chest pain, unspecified; Dizziness and giddiness; Headache. Bed requested for [facility] ER HOLD. Status is Observation. Condition is Stable. Problem is new. Symptoms have improved. 02/02 08:25 07:31 02/02/2020 23:42 Hospitalization Ordered by David Trejo MD for Observation. bp Preliminary diagnosis is Chest pain, unspecified; Dizziness and giddiness; Headache. Bed requested for Telemetry/MedSurg (observation). Status is Observation. Condition is Stable. Problem is new. Symptoms have improved. bd
[2020-02-03] MEDS ORDERED: Magnesium Sulfate 2gm IVPB 2 G/50 ML BAG IV ONE (00:25)
--- NOTE | 2020-02-03 00:34 | P.HP ---
Certification for Inpatient Patient admitted to: Observation With expected LOS: <2 Midnights Patient will require the following post-hospital care: None Practitioner: I am a practitioner with admitting privileges, knowledge of patient current condition, hospital course, and medical plan of care. Services: Services provided to patient in accordance with Admission requirements found in Title 42 Section 412.3 of the Code of Federal Regulations <Gage Hernandez - Last Filed: 02/03/20 00:29> Patient History Date of Service: 02/03/20 Primary Care Provider: Zulema Xiong Reason for admission: Chest pain History of Present Illness: The 64-year-old female with history of hypertension, diabetes mellitus type 2, hyperlipidemia, coronary artery disease, recent ischemic CVA presented emergency department for headache. While patient was in the waiting room she did develop pressure-like chest pain. Patient agitated and drowsy, poor historian in regards to chest pain at this time but did report that pain was nonradiating and did not have any associated symptoms. Patient denies similar symptoms in the past but reports she did have cardiac catheterization with stent placement approximately 5 years ago. Patient denies other cardiac workup. Patient reports during her recent hospitalization she did not had echocardiogram as was planned to be completed on an outpatient basis. Initial troponin 0.05, BNP mildly elevated at 410. Magnesium also low at 1.4. ED provider wishes to admit patient for chest pain observation. When I saw the patient in the emergency department she was awake but drowsy, oriented x4. Patient agitated, not wanting to answer many questions as she states she has headache. CT head unchanged from comparison study a couple days ago. 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 - Family History Father -: Heart disease, Hypertension, Diabetes Mother -: Hypertension Notes: Aneurysm x 2 - Social History Alcohol use: No CD- Drugs: No Caffeine use: No Place of Residence: Home <Gage Hernandez - Last Filed: 02/03/20 00:29> Date of Service: 02/03/20 <David Trejo - Last Filed: 02/03/20 18:34> Allergies No Known Allergies Allergy (Verified 11/19/19 04:30) Home Medications: Aspirin [Aspirin EC 81 MG] 81 mg PO DAILY #30 tablet. 02/01/20 Atorvastatin Calcium [Lipitor] 80 mg PO BEDTIME 30 Days #30 tab 02/01/20 Clopidogrel Bisulfate [Plavix] 75 mg PO DAILY 30 Days #30 tablet 02/01/20 Codeine/APAP [Tylenol W/Codeine #3 tab] 1 tab PO Q6HP PRN 3 Days #10 tab 02/01/20 Folic Acid 1 mg PO DAILY 30 Days #30 tablet 02/01/20 Metformin HCl [Glucophage] 1,000 mg PO BID 30 Days #60 tablet 02/01/20 Metoprolol Tartrate [Lopressor*] 1 tab PO BID 30 Days #60 tab 02/01/20 Review of Systems 10-point ROS is otherwise unremarkable Cardiovascular: Chest Pain Neurological: Other (Headache) <Gage Hernandez - Last Filed: 02/03/20 00:29> Physical Examination - Physical Exam General: Alert, In no apparent distress HEENT: Atraumatic, PERRLA, Mucous membr. moist/pink Neck: Supple, 2+ carotid pulse no bruit, No LAD Respiratory: Clear to auscultation bilaterally, Normal air movement Cardiovascular: Regular rate/rhythm, Normal S1 S2 Gastrointestinal: Normal bowel sounds, No tenderness Musculoskeletal: No tenderness Integumentary: No rashes Neurological: Normal speech, Normal strength at 5/5 x4 extr, Normal tone, Normal affect - Studies Laboratory Data (last 24 hrs) 02/02/20 20:30: PT 11.9, INR 1.01 02/02/20 20:30: WBC 11.1 H D, Hgb 14.2, Hct 42.7, Plt Count 281 02/02/20 20:30: Sodium 135 L, Potassium 4.0, BUN 17, Creatinine 0.54 L, Glucose 277 H, Magnesium 1.4 L* D, Total Bilirubin 0.4, AST 14 L, ALT 19, Alkaline Phosphatase 99 <Gage Hernandez - Last Filed: 02/03/20 00:29> - Studies Laboratory Data (last 24 hrs) 10/04/20 20:30: PT 11.9, INR 1.01 02/02/20 20:30: WBC 11.1 H D, Hgb 14.2, Hct 42.7, Plt Count 281 02/02/20 20:30: Sodium 135 L, Potassium 4.0, BUN 17, Creatinine 0.54 L, Glucose 277 H, Magnesium 1.4 L* D, Total Bilirubin 0.4, AST 14 L, ALT 19, Alkaline Phosphatase 99 <David Trejo - Last Filed: 02/03/20 18:34> Assessment and Plan - Plan Assessment Chest pain rule out ACS Hypomagnesemia Diabetes mellitus type 2 Hypertension Hyperlipidemia Plan Chest pain rule out ACS: Cardiology consult in place, will trend troponins, echocardiogram ordered. Monitor on telemetry. DVT prophylaxis Lovenox 40 mg s ubcutaneous once daily. Continue aspirin, Plavix, metoprolol, statin. Hypomagnesemia: Magnesium protocol in place. Diabetes mellitus type 2: A.c. HS Accu-Cheks, sliding scale insulin therapy. Hypertension: Continue metoprolol. Hyperlipidemia: Continue statin. Discharge Plan: Home Plan to discharge in: 24 Hours - Advance Directives Does patient have a Living Will: No Does patient have a Durable POA for Healthcare: Yes - Code Status/Comfort Care Code Status Assessed: Yes (Patient is full code) Critical Care: No Time Spent Managing Pts Care (In Minutes): 55 <Gage Hernandez - Last Filed: 02/03/20 00:29> Physician Review Additional Text: Plan of care discussed with Gage Hernandez, and I agree with the management plan as noted above. Patient seen earlier this morning Discussed with Cardiology to undergo cardiac catheterization today, echocardiogram Discuss with neurology, will start Topamax 25 mg q.h.s. for headache, may take days to weeks to be really effective <David Trejo - Last Filed: 02/03/20 18:34>
[2020-02-03 01:07] VITALS: BMI 23.8
[2020-02-03] MEDS ORDERED: ALBUTEROL INHALER 60 PUFF/8 GM IH PRN (01:10)
[2020-02-03] MEDS: NA CHLORIDE 0.9% 1,000 ML IV SCH ×3 (01:10→21:10)
[2020-02-03] MEDS ORDERED: ONDANSETRON 4 MG/2 ML VIAL IV PRN (01:10)
[2020-02-03] MEDS ORDERED: HYDROCODONE/APAP 5/325 MG TAB PO PRN (01:10)
[2020-02-03] MEDS ORDERED: ACETAMINOPHEN 500 MG TAB PO PRN (01:10)
[2020-02-03] MEDS ORDERED: NA CHLORIDE 0.9% 1,000 ML ONE (01:27)
[2020-02-03] MEDS ORDERED: HYDROCODONE/APAP 5/325 MG TAB ONE (03:29)
[2020-02-03] MEDS: MORPHINE 2 MG/ML SYR IV PRN ×3 (05:07→21:25)
[2020-02-03] MEDS ORDERED: MORPHINE 2 MG/ML SYR ONE (05:16)
[2020-02-03 05:45] LABS: BUN Blood Urea Nitrogen 10 mg/dL (7-18); Bicarbonate 25 mmol/L (21-32); Glucose Level 231 mg/dL (74-106); Magnesium 1.9 mg/dL (1.8-2.4); Potassium 3.7 mmol/L (3.5-5.1); Sodium Level 140 mmol/L (136-145)
[2020-02-03 05:51] LABS: Absolute Lymphocytes (CBC) 1.7 K/uL (0.7-4.9); Basophils % 0.4 % (0-1.3); Hematocrit 44.1 % (36.0-45.0); Lymphocytes % 14.8 % (15.3-44.8); MPV 9.4 fL (7.6-11.3); RBC Red Blood Cell Count 5.14 M/uL (3.86-4.86)
[2020-02-03] MEDS: METOPROLOL TAR 25 MG TAB PO SCH ×3 (06:00→20:39)
[2020-02-03] MEDS ORDERED: METOPROLOL TAR 25 MG TAB ONE (06:24)
--- NOTE | 2020-02-03 07:49 | RAD REPORT ---
EXAM DESCRIPTION: RAD - Chest Single View - 02/02/2020 9:20 pm CLINICAL HISTORY: CHEST PAIN COMPARISON: November 18, 2019, January 05, 2017 TECHNIQUE: AP portable chest image was obtained 02/02/2020 9:20 pm . FINDINGS: Chronic interstitial lung pattern present not substantially different from comparison stud ies. No mass or consolidation. Minimal edema or infiltrate could be masked. Heart and vasculature are normal. No measurable pleural effusion and no pneumothorax. No acute bony abnormality seen. No acute aortic findings suspected. IMPRESSION: No acute cardiopulmonary process. Chronic interstitial lung pattern is present potentially masking minimal edema or infiltrate.
[2020-02-03] MEDS ORDERED: INFLUENZA VACCINE (for 3y+) 0.5 ML DOSE IMVAC ONE (09:00)
[2020-02-03 09:52] LABS: Urine Appearance CLEAR; Urine Bilirubin NEGATIVE (NEG); Urine Blood NEGATIVE (NEG); Urine Color YELLOW; Urine Glucose 3+ (NEG); Urine Protein TRACE (NEG); Urine Specific Gravity 1.015 (1.005-1.030); Urine Urobilinogen 0.2 mg/dL (0.2-1.0)
[2020-02-03 09:56] LABS: Urine Microscopic Reflex ORDER UMIC
[2020-02-03] MEDS: INSULIN -REGULAR HUMAN 50 UNIT/0.5 ML ML SQ SCH ×4 (10:06→21:00)
[2020-02-03] MEDS: ENOXAPARIN 40 MG/0.4 ML SQ SCH (10:07)
[2020-02-03] MEDS: ASPIRIN EC 81 MG TAB PO SCH (10:09)
[2020-02-03] MEDS: FOLIC ACID 1 MG TABLET PO SCH (10:09)
[2020-02-03] MEDS: CLOPIDOGREL 75 MG TABLET PO SCH (10:09)
[2020-02-03 10:25] LABS: Urine Bacteria <20 /HPF (<20); Urine Culture Reflex Order NOT NEEDED; Urine RBC <5 /HPF (NONE SEEN)
--- NOTE | 2020-02-03 15:09 | ECHO ---
HEIGHT: 5 ft 2 in WEIGHT: 130 lb 0.106 oz DATE OF STUDY: 02/03/[address]: Gage Hernandez NP 2-DIMENSIONAL: YES M.MODE: YES DOPPLER: YES COLOR FLOW: YES TDS: YES PORTABLE: NO DEFINITY: NO BUBBLE STUDY: NO DIAGNOSIS: CEREBRAL VASCULAR ACCIDENT CARDIAC HISTORY: CATHERIZATION: SURGERY: PROSTHETIC VALVE: PACEMAKER: MEASUREMENTS (cm) DIASTOLIC (NORMALS) SYSTOLIC (NORMALS) IVSd 0.9 (0.6-1.2) LA Diam (1.9-4.0) LVEF 65% LVIDd 4.4 (3.5-5.7) LVIDs 2.8 (2.0-3.5) %FS 35% LVPWd 1.1 (0.6-1.2) Ao Diam 2.6 (2.0-3.7) 2 DIMENSIONAL ASSESSMENT: RIGHT ATRIUM: NORMAL LEFT ATRIUM: NORMAL RIGHT VENTRICLE: NORMAL LEFT VENTRICLE: NORMAL TRICUSPID VALVE: NORMAL MITRAL VALVE: NORMAL PULMONIC VALVE: NORMAL AORTIC VALVE: NORMAL PERICARDIAL EFFUSION: NONE AORTIC ROOT: NORMAL LEFT VENTRICULAR WALL MOTION: NORMAL DOPPLER/COLOR FLOW: NORMAL COMMENTS: NORMAL LEFT VENTRICULAR EJECTION FRACTION 55-60% WITH NORMAL WALL MOTION. TECHNOLOGIST: Lisy LÓPEZ
[2020-02-03] MEDS ORDERED: HEPA 1000U/500MLS 2,000 UNIT/1,000 ML BAG IV ONE (17:12)
[2020-02-03] MEDS ORDERED: HEPARIN 5000 UNIT/ML 1 ML VIAL ONE (17:52)
[2020-02-03] MEDS ORDERED: MIDAZOLAM HCL 2 MG/2 ML INJ ONE (17:53)
[2020-02-03] MEDS ORDERED: ATROPINE SULF 1 MG/10 ML SYR IV ONE (17:53)
[2020-02-03] MEDS ORDERED: NITROGLYCERIN 100 MCG/ML SYR (for cath lab use only) IV ONE (17:53)
[2020-02-03] MEDS ORDERED: NICARDIPINE HCL 25 MG/10 ML IV ONE (17:53)
[2020-02-03] MEDS ORDERED: FENTANYL CITR 100 MCG/2 ML ONE (17:53)
[2020-02-03] MEDS ORDERED: HEPARIN 10,000 UNIT/10 ML VIAL IV ONE (18:38)
[2020-02-03] MEDS ORDERED: HEPA 1000U/500MLS 1,000 UNIT/500 ML BAG IV ONE (18:47)
[2020-02-03] MEDS ORDERED: CLOPIDOGREL 75 MG TABLET ONE (18:47)
[2020-02-03] MEDS ORDERED: METOPROLOL TARTRATE 5 MG/5 ML INJ IV ONE (18:50)
[2020-02-03] MEDS: ATORVASTATIN 80 MG TAB PO SCH (21:00)
[2020-02-03] MEDS: TOPIRAMATE 25 MG TAB PO SCH (21:00)
[2020-02-03] MEDS ORDERED: INSULIN -REGULAR HUMAN 50 UNIT/0.5 ML ML ONE (21:11)
[2020-02-03] MEDS ORDERED: MORPHINE 4 MG/ML SYR ONE (21:34)
--- NOTE | 2020-02-03 22:16 | CON ---
Date of Consultation: 02/03/2020 Reason For Consultation: Chest pain. History Of Present Illness: This is a 64-year-old female with known history of coronary artery disea se, status post cardiac stents in the past, and heart attack. She has history of CVA, discharged rec ently from the hospital due to that, history of diabetes and hypertension, presented with chest pain, left-sided, pressure-like, radiates to the upper extremity with nausea, similar in symptoms to the t lei when she had her heart attack 5 years ago. Denies having any fever. No cough. No shortness of breath. Past Medical History: As outlined above in HPI. Medications: Refer to reconciliation sheet for detailed list. Allergies: NO KNOWN DRUG ALLERGIES. Social History: Does not smoke or drink. Does not use any drugs. Family History: No premature coronary artery disease or cancer. Review of Systems: All systems reviewed and they were negative except what mentioned in the HPI. Physical Examination: Vital Signs: Temperature is 97.7, pulse 93, breathing 16, blood pressure is 156/83, saturating 96% o n room air. General: Pleasant middle-aged female, in no apparent distress. Head and Neck: Pupils are equal, reactive to light. Intact eye movements. No JVD. No cervical lym phadenopathy. Neck: Supple. Thyroid is not enlarged. Lungs: Clear to auscultation bilaterally. No rhonchi, rales, or crackles. No accessory muscle use. Heart: Regular rate and rhythm. No extra sounds. Abdomen: Soft, nontender. Bowel sounds positive. No organomegaly. No masses or hernia. No rigidi ty or rebound. Extremities: No edema, clubbing, or cyanosis. Intact pulses. Skin: No rash. Neurologic: Alert, awake, oriented x3. No acute focal deficit appreciated. Investigations: Troponin 0.08 and 0.07. Creatinine 0.55. Assessment And Plan: Unstable angina with possible dak-IM-trrombtxj myocardial infarction. Keep n.p .o. for coronary angiogram today to further evaluate the coronary anatomy as she has typical symptoms with known history of coronary artery disease. Continue aspirin and nitroglycerin for pain control and morphine sulfate. I appreciate the courtesy of this consultation. /EMMIEL Voice ID: [id number] Report ID: [id number]
[2020-02-04] MEDS: NA CHLORIDE 0.9% 1,000 ML IV SCH ×3 (03:00→16:20)
--- NOTE | 2020-02-04 03:15 | OP ---
Date of Procedure: 02/03/2020 Surgeon: ARNOLD KATZ Procedures Performed: 1.Selective coronary angiogram with bypass graft study. 2.Percutaneous coronary intervention of severe distal left main stenosis using a 3.5 x 20 mm Synergy drug-eluting stent, postdilated the left main using 4.0 x 12 mm NC balloon. 3.Percutaneous coronary intervention of proximal left circumflex and severe stenosis, 99% stenosis l ikely the culprit, using a 3.5 x 20 mm Synergy drug-eluting stent into the left main and overlapped d istally with 3.5 x 12 mm Synergy drug-eluting stent, JACQUELINE 2 flow before percutaneous coronary interve ntion, JACQUELINE-3 flow post percutaneous coronary intervention. Lesion length is 16 mm. Residual stenos is is 0% post percutaneous coronary intervention. Indications: Non-ST elevation myocardial infarction. Access: Right radial artery 6-[place] closed with TR band and other access from the left radial arter y 6-[place] closed with TR band. Complications: None. Bleeding: Less than 50 mL. Total Sedation Time: 75 minutes. Description Of Procedure: After risks, benefits, and alternatives were explained to the patient and the family, the patient agreed to proceed and signed informed consent. She was brought into the [facility] catheterization laboratory and prepped and draped in usual sterile fashion. Then, we accessed [facility] radial artery and using pediatric micropuncture kit, then we took a 5-[place] catheter into the aortic root over a J-wire, engaged the left main and then right coronary artery, and then the SVG graft to the RCA, and then we accessed the right radial artery using pediatric micropuncture kit and placed a 6-[place] vascular sheath and then we took a 6-[place] JR4 catheter into the left subclavian. We engaged the MARIE and we took the standard views. Then, we proceeded to the intervention part. Intervention Details: We gave heparin throughout the procedure to assure ACT level above 250 through out the procedure. Then, we took a 3.5 EBU through the right radial sheath into the aortic root, eng aged left main and took a short Runthrough wire into the LAD and then we took another Runthrough wire trying to cross the distal left main ostial left circumflex disease, however, could not do it. We t ook a Fielder XT and was able to cross the stenosis, and then we took over the wire balloon 2.5 x 50 mm into the left circumflex and exchanged the Fielder XT for a long Runthrough wire and then we ballo oned the lesion in the distal left main and the ostial and proximal left circumflex with good results , and then we took a 3.0 x 50 mm NC balloon and dilated the lesion further, and then subsequently we took a 3.5 x 20 mm Synergy drug-eluting stent and took across the ostial left of the left circumflex and to cover the distal left main, and the stent was deployed and then we recross the wire into the L AD and dilated the ostium and then we took another stent 3.5 x 12 mm to overlap with distal part of t he stent into the mid circumflex to cover the mid circumflex stenosis, and then we dilated the overla p using 4.0 x 12 mm balloon and then the same 4.0 x 12 mm balloon was used to dilate the proximal por tion of the stent in the left main with excellent results and JACQUELINE-3 flow and 0% residual stenosis. Then, we took wires out and we took final injection and had excellent results. Findings: 1.Left main distal severe disease. 2.Ostial left circumflex 99% stenosis, status post PCI, distal left main to left circumflex as above successfully. 3.LAD 90% ostial disease. 4.RCA has proximal 40%, mid diffuse 40%, and mid to distal 70% lesion. 5.Right PLV has diffuse 50% stenosis. Right PDA is CAR TESTER with patent SVG to PDA. Grafts: 1.MARIE to LAD is patent. 2.SVG to RCA is patent. 3.SVG to left circumflex is occluded. Conclusions: 1.Severe distal left main to left circumflex stenosis, status post successful PCI as above. 2.Severe [place] LAD and left circumflex disease with open MARIE and SVG to RCA. Recommendations: The patient was loaded with 180 mg of Brilinta, continue 90 mg q.12 hours; aspirin 81 mg daily and high-dose statin. Follow up as outpatient in 4 weeks post discharge. /CHADD Voice ID: [id number] Report ID: [id number]
[2020-02-04 05:39] LABS: ALT/SGPT 22 U/L (12-78); AST/SGOT 24 U/L (15-37); Albumin 3.1 g/dL (3.4-5.0); Alkaline Phosphatase 86 U/L (45-117); BUN Blood Urea Nitrogen 7 mg/dL (7-18); Bicarbonate 24 mmol/L (21-32); Bilirubin Total 0.6 mg/dL (0.2-1.0); Glucose Level 226 mg/dL (74-106); Magnesium 1.6 mg/dL (1.8-2.4); Potassium 3.4 mmol/L (3.5-5.1); Protein, Total 6.3 g/dL (6.4-8.2); Sodium Level 136 mmol/L (136-145)
[2020-02-04] MEDS: METOPROLOL TAR 25 MG TAB PO SCH ×2 (06:19→17:41)
[2020-02-04] MEDS ORDERED: POTASSIUM CL SA 10 MEQ TAB PO ONE ×3 (09:00→17:00)
[2020-02-04] MEDS ORDERED: MAGNESIUM SULFATE 1 gm IVPB 1 GM/100 ML BAG IV ONE (09:00)
[2020-02-04] MEDS: CLOPIDOGREL 75 MG TABLET PO SCH (09:12)
[2020-02-04] MEDS: ASPIRIN EC 81 MG TAB PO SCH (09:12)
[2020-02-04] MEDS: INSULIN -REGULAR HUMAN 50 UNIT/0.5 ML ML SQ SCH ×4 (09:12→21:53)
[2020-02-04] MEDS: ENOXAPARIN 40 MG/0.4 ML SQ SCH (09:12)
[2020-02-04] MEDS: FOLIC ACID 1 MG TABLET PO SCH (09:12)
--- NOTE | 2020-02-04 11:09 | P.PN ---
Subjective Date of Service: 02/04/20 Primary Care Provider: Zulema Xiong Chief Complaint: Chest pain Patient states she feels much better. Status post cardiac catheterization yesterday. Patient found to have 2 vessel disease which were stented. No issues overnight. Vitals are stable. Physical Examination - Vital Signs Temperature: 98 F Blood Pressure: 144/84 Pulse: 86 Respirations: 18 Pulse Ox (%): 96 - Physical Exam General: Alert, In no apparent distress, Oriented x3 HEENT: Normocephalic, Mucous membr. moist/pink Neck: Supple, JVD not distended Respiratory: Clear to auscultation bilaterally, Normal air movement Cardiovascular: No edema, Regular rate/rhythm, Normal S1 S2 Gastrointestinal: Normal bowel sounds, Soft and benign, No tenderness Musculoskeletal: No swelling, No erythema Integumentary: No rashes Neurological: Normal speech, Normal strength at 5/5 x4 extr Assessment And Plan - Current Problems (Diagnosis) (1) NSTEMI (non-ST elevated myocardial infarction) Current Visit: Yes Status: Acute Plan: Status post cardiac catheterization. (2) History of CVA (cerebrovascular accident) Current Visit: Yes Status: Acute (3) CAD (coronary artery disease) Onset Date: 01/14/16 Current Visit: No Status: Acute Qualifiers: Coronary Disease-Associated Artery/Lesion type: [place] artery [place] vs. transplanted heart: [place] heart Associated angina: without angina Qualified Code(s): I25.10 - Atherosclerotic heart disease of [place] coronary artery without angina pectoris (4) Chest pain Onset Date: 03/10/14 Current Visit: No Status: Acute Plan: Resolved (5) Diabetes mellitus Onset Date: 03/10/14 Current Visit: No Status: Acute (6) Hypertensive disorder, systemic arterial Onset Date: 03/10/14 Current Visit: No Status: Acute (7) Intractable headache Current Visit: Yes Status: Acute - Plan Continue aspirin and Plavix. Continue monitoring. Blood pressure control. Replete electrolytes-potassium. Aggressive blood sugar control-insulin sliding scale. Continue Topamax. Physician Review Additional Text: Plan of care discussed with Gage Hernandez, and I agree with the management plan as noted above. Patient seen earlier this morning Discussed with Cardiology to undergo cardiac catheterization today, echocardiogram Discuss with neurology, will start Topamax 25 mg q.h.s. for headache, may take days to weeks to be really effective
--- NOTE | 2020-02-04 13:38 | RAD REPORT ---
EXAM DESCRIPTION: CT - Head Brain Wo Cont - 02/03/2020 4:14 am CLINICAL HISTORY: 64 years Female HEADACHE COMPARISON: None. TECHNIQUE: Contiguous axial CT images obtained through the brain without IV contrast. This exam was performed according to our department optimization program which includes automated exp osure control, adjustment of the mA and/or kv according to patient size and/or use of iterative recon struction technique. FINDINGS: The ventricles and sulci appear unremarkable. No mass lesions. There is a similar area of decreased attenuation in the right parieto-occipital region likely represe nting an area of relatively acute infarct. There is mild associated sulcal effacement. There is quest ionable minimal petechial hemorrhage. The appearance is unchanged compared to the previous study. There is a small area of slightly decreased density in the left frontal lobe also consistent with an area of relatively recent infarct. Atherosclerotic calcifications. No fluid or significant mucosal thickening in the visualized paranasal sinuses. No depressed calvarial fractures. IMPRESSION: There is a similar area of relatively acute infarct in the right parieto-occipital regio n. There may be minimal petechial hemorrhage. The appearance is unchanged compared to the prior study . Small area of slightly decreased density in the left frontal lobe also consistent with an area of rel atively recent infarct. Electronically signed by: Jaskaran Armenta MD 02/02/2020 9:56 PM CDT Due to temporary technical issues with the PACS/Fluency reporting system, reports are being signed by the in house radiologist without review as a courtesy to ensure prompt reporting. The interpreting r adiologist is fully responsible for the content of the report.
[2020-02-04] MEDS: ATORVASTATIN 80 MG TAB PO SCH (21:52)
[2020-02-04] MEDS: TOPIRAMATE 25 MG TAB PO SCH (21:52)
[2020-02-05 04:50] LABS: BUN Blood Urea Nitrogen 9 mg/dL (7-18); Bicarbonate 24 mmol/L (21-32); Glucose Level 199 mg/dL (74-106); Magnesium 1.7 mg/dL (1.8-2.4); Potassium 3.9 mmol/L (3.5-5.1); Sodium Level 142 mmol/L (136-145)
[2020-02-05] MEDS: METOPROLOL TAR 25 MG TAB PO SCH (05:41)
[2020-02-05] MEDS: INSULIN -REGULAR HUMAN 50 UNIT/0.5 ML ML SQ SCH ×2 (08:39→12:03)
[2020-02-05] MEDS: ENOXAPARIN 40 MG/0.4 ML SQ SCH (08:39)
--- NOTE | 2020-02-05 08:43 | P.DS ---
Admission Date: 02/03/20 Discharge Date: 02/05/20 Primary Care Provider: Zulema Xiong Disposition: ROUTINE DISCHARGE Discharge Condition: GOOD Reason for Admission: Chest pain Brief History of Present Illness: Please refer to H&P Hospital Course: Patient is a 64 year old female with a known PMH of CAD s/p PCI who was admitted with chest pain. ACS was ruled out with negative troponins. Her echocardiogram showed a LVEF 55%. Otherwise, no wall motion abnormalities. 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 Her hospital course has been otherwise unremarkable. She will be discharged on dual antiplatelet, statin, metoprolol and PRN SL nitroglycerin. Vital Signs/Physical Exam: Temp Pulse Resp BP Pulse Ox 97.8 F 88 16 132/76 94 02/05/20 04:00 02/05/20 05:41 02/05/20 04:00 02/05/20 05:41 02/05/20 04:00 General: Alert, In no apparent distress, Cooperative Neck: Supple Respiratory: Clear to auscultation bilaterally, Normal air movement Cardiovascular: No edema, Normal pulses, Regular rate/rhythm, Normal S1 S2 Gastrointestinal: Normal bowel sounds, Soft and benign, Non-distended Musculoskeletal: No clubbing, No swelling, No contractures, No erythema, No tenderness, No warmth Neurological: Normal speech, Normal strength at 5/5 x4 extr, Sensation intact, Normal affect Laboratory Data at Discharge: WBC 11.7 K/uL (4.3-10.9) H 02/03/20 05:02 Hgb 14.5 g/dL (12.0-15.0) 02/03/20 05:02 Hct 44.1 % (36.0-45.0) 02/03/20 05:02 Plt Count 287 K/uL (152-406) 02/03/20 05:02 PT 11.9 SECONDS (9.5-12.5) 02/02/20 20:30 INR 1.01 02/02/20 20:30 Sodium 142 mmol/L (136-145) 02/05/20 04:13 Potassium 3.9 mmol/L (3.5-5.1) 02/05/20 04:13 BUN 9 mg/dL (7-18) 02/05/20 04:13 Creatinine 0.50 mg/dL (0.55-1.3) L 02/05/20 04:13 Glucose 199 mg/dL (74-106) H 02/05/20 04:13 Magnesium 1.7 mg/dL (1.8-2.4) L 02/05/20 04:13 Total Bilirubin 0.6 mg/dL (0.2-1.0) 02/04/20 05:11 AST 24 U/L (15-37) 02/04/20 05:11 ALT 22 U/L (12-78) 02/04/20 05:11 Alkaline Phosphatase 86 U/L (45-117) 02/04/20 05:11 Troponin I 0.07 ng/mL (0.0-0.045) H 02/03/20 14:50 Home Medications: Aspirin [Aspirin EC 81 MG] 81 mg PO DAILY #30 tablet. 02/01/20 Atorvastatin Calcium [Lipitor] 80 mg PO BEDTIME 30 Days #30 tab 02/01/20 Clopidogrel Bisulfate [Plavix] 75 mg PO DAILY 30 Days #30 tablet 02/01/20 Codeine/APAP [Tylenol #3*] 1 tab PO Q6HP PRN 3 Days #10 tab 02/01/20 Folic Acid 1 mg PO DAILY 30 Days #30 tablet 02/01/20 Metformin HCl [Glucophage] 1,000 mg PO BID 30 Days #60 tablet 02/01/20 Metoprolol Tartrate [Lopressor*] 1 tab PO BID 30 Days #60 tab 02/01/20 Metoprolol Tartrate [Lopressor*] 25 mg PO BID 6AM 6PM #60 tab 02/05/20 Nitroglycerin [Nitrostat] 0.4 mg SL PRN #25 tab 02/05/20 Topiramate [Topamax*] 25 mg PO BEDTIME #30 tab 02/05/20 New Medications: Metoprolol Tartrate [Lopressor*] 25 mg PO BID 6AM 6PM #60 tab Nitroglycerin [Nitrostat] 0.4 mg SL PRN #25 tab Topiramate [Topamax*] 25 mg PO BEDTIME #30 tab Diet: Low sodium
[2020-02-05] MEDS ORDERED: POTASSIUM CL SA 10 MEQ TAB PO ONE (08:49)
[2020-02-05 08:57] VITALS: TEMP 97.1
[2020-02-05] MEDS ORDERED: MAGNESIUM SULFATE 1 gm IVPB 1 GM/100 ML BAG IV ONE (09:00)
[2020-02-05] MEDS ORDERED: ASPIRIN EC 81 MG TAB PO SCH (09:00)
[2020-02-05] MEDS ORDERED: FOLIC ACID 1 MG TABLET PO SCH (09:00)
[2020-02-05] MEDS ORDERED: CLOPIDOGREL 75 MG TABLET PO SCH (09:00)
[2020-02-05] MEDS ORDERED: METOPROLOL TAR 25 MG TAB PO SCH (09:00)
[2020-02-05 12:12] VITALS: O2SAT 96
[2020-02-05 12:33] VITALS: BP 114/78
[2020-02-05] MEDS ORDERED: ATORVASTATIN 80 MG TAB PO SCH (21:00)
--- NOTE | 2020-02-06 05:29 | EKG ---
Test Date: 2020-02-05 Test Time: 11:09:06 Senior Research Scientist: JENNIFER MEASUREMENT RESULTS: Intervals: Rate: 81 CT: 126 QRSD: 90 QT: 400 QTc: 464 [place]: P: 50 CT: 126 QRS: 27 T: 25 INTERPRETIVE STATEMENTS: Normal sinus rhythm Normal ECG Compared to ECG 02/02/2020 18:20:33 Myocardial infarct finding no longer present Electronically Signed On 02-06-20 05:28:42 CDT by Alistair Clifton
--- NOTE | 2020-02-10 11:00 | PN ---
Date of Progress Note: 02/04/2020 Subjective: Ms. Ware was taken to the [facility] yesterday on 02/03/2020. She was found to have saud re left main disease, ostial circumflex 99% stenosis, status post PCI distal left main to left circum flex. This was a successful intervention. She had a 40% RCA. She had an LAD that was 90% ostial di sease. She had a MARIE to the LAD that was patent. The SVG to the RCA that was patent. Vein graft t o the circumflex was occluded. Overnight, she tolerated the procedure well. No complication. Right groin site is intact. Vital signs stable, afebrile. Distal pulses are adequate. No chest pain. V ital signs normal. Telemetry is normal. The patient can go home today on her present regimen includ ing aspirin, Lipitor, Plavix, and a beta-noe and we will see her in the office in 2 weeks. MAGDY/CHADD Voice ID: [id number] Report ID: [id number]
== END 2020-02-05 16:28 | disposition home or self-care (01) | DRG 247 ==
LOC: ER 17:57 → INTOOBSV 02-03 00:11 → UNDOADMOB 02-03 00:11 → ERHOLD 02-03 00:11 → OBSVTOIN 02-03 00:11 → ERHOLD 02-03 08:01 → 2ND 02-03 08:01 → OBSVTOIN 02-04 11:08
PROVIDERS: ADMIT Hospitalist; ATTEND Internal Medicine
PROC: 4A023N7 Measurement of Cardiac Sampling and Pressure, Left Heart, Percutaneous Approach (ICD-10-PCS; 2020-02-03)
PROC: B2111ZZ Fluoroscopy of Multiple Coronary Arteries using Low Osmolar Contrast (ICD-10-PCS; 2020-02-03)
PROC: 027035Z Dilation of Coronary Artery, One Artery with Two Drug-eluting Intraluminal Devices, Percutaneous Approach (ICD-10-PCS; principal; 2020-02-04)
DX: R07.9 Chest pain, unspecified (principal); E11.9 Type 2 diabetes mellitus without complications; E78.5 Hyperlipidemia, unspecified; E83.42 Hypomagnesemia; I25.10 Atherosclerotic heart disease of native coronary artery without angina pectoris; I10 Essential (primary) hypertension; R51.9 Headache, unspecified; Z79.82 Long term (current) use of aspirin; Z79.84 Long term (current) use of oral hypoglycemic drugs; Z79.891 Long term (current) use of opiate analgesic; Z95.5 Presence of coronary angioplasty implant and graft; Z90.49 Acquired absence of other specified parts of digestive tract; Z90.710 Acquired absence of both cervix and uterus; Z86.73 Personal history of transient ischemic attack (TIA), and cerebral infarction without residual deficits
CPT/HCPCS: 36415; 70450; 71045; 80048; 80053; 80076; 81003; 81015; 82947; 83735; 83880; 84132; 84484; 85025; 85347; 85610; 92610; 92928; 92929; 93005; 93306; 93458; 99285; C1725; C1893; J1200; J1644; J1650; J2250; J2270; J2765; J3010; J3475; J7030

== ENCOUNTER 2022-07-04 00:43 | Inpatient (IN) | payer OTHER ==
--- OUTSIDE RECORDS SUMMARY | 2022-07-04 00:47 | XMS REPORT | Continuity of Care Document ---
:1955 Author Organization [facility] t Address [address] [facility] [address] [place] [address] Care Team Providers Name Role Phone Karen Bautista Attending Clinician Unavailable Payers Payer Name Policy Type Policy Number Effective Date Expiration Date S carlos [place] 53 [id number] 2021 2022 [employer] 00:00:00 00:00:00 [facility] 53 [id number] [facility] [employer] [facility] Problems Condition Condition Condition Status Onset Resolution Last Treating Co mments Source Name Details Category Date Date Treatment Clinician Date [id number] Coronary Problem Commo n artery Spirit disease - [facility] [place] [facility] heart with Medica l other form Center of angina pectoris, unspecifie d vessel or lesion type [id number] Type 2 Problem Common diabetes Spirit mellitus - [facility] with [facility] on, without long-term current use of insulin [id number] Ischemic Problem Comm on stroke Spirit - [facility] Hyperglyce Type 2 Problem Commo n sera due to diabetes Spir it type 2 mellitus - CHI diabetes with St mellitus hyperglyce [facility] [id number] Mixed Problem Common hyperlipid Spirit emia - [facility] [id number] Other Problem Common secondary Spirit hypertensi - [facility]I on [facility] [id number] Coronary Problem Comm on artery Spirit disease - [facility]I involving [facility] coronary Medical artery of [place] heart without angina pectoris [id number] Hypertensi Problem Com mon ve heart Spirit disease - [facility] without [facility] [id number] 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 Social History Social Habit Start Date Stop Date Quantity Comments Source History of Tobacco Use Co mmon [facility] Sex Assigned At Com [facility] Smoking Status Start Date Stop Date Source Former Smoker 2022-01-21 00:00:00 2022-01-21 00:00:00 Common S pirit [facility] Medications Ordered Filled Start Stop Current Ordering Indication Dosage Frequency Signature Comments Components Source Medication Medication Date Date Medication? Clinician (SIG) Name Name Mohamud Mallory 2022- No Mohamud 1.5mg/0.5ml 1.5mg/0.5ml 01-21 03-22 1.5mg/0.5m 00:00: 00:00 l 00 :00 Mohamud Mallory 2022- No Monserratity 1.5mg/0.5ml 1.5mg/0.5ml 01-21 03-22 1.5mg/0.5m 00:00: 00:00 l 00 :00 Mohamud Mallory 2021-2022- No Monserratity 1.5mg/0.5ml 1.5mg/0.5ml 01-21 03-22 1.5mg/0.5m 00:00: 00:00 l 00 :00 Amoxicillin Amoxicillin 2021-2021- No 1{table BID Amoxicilli 875 MG 875 MG 10-20 t} n 875 MG 00:00: 00:00 00 :00 Amoxicillin Amoxicillin 2021-0 2021- No 1{table BID Amoxicilli 875 MG 875 MG 10-20 t} n 875 MG 00:00: 00:00 00 :00 Lisinopril Lisinopril 2021-0 No 1{table QD Lisinopril 20 MG 20 MG 5-04 t} 20 MG 00:00: 00 Lisinopril Lisinopril 2021-0 No 1{table QD Lisinopril 20 MG 20 MG 5-04 t} 20 MG 00:00: 00 Lisinopril Lisinopril 2022-0 No 1{table QD Lisinopril 20 MG 20 MG 5-04 t} 20 MG 00:00: 00 Lisinopril Lisinopril 2022-0 No 1{table QD Lisinopril 20 MG 20 MG 5-04 t} 20 MG 00:00: 00 Lisinopril Lisinopril 2022-0 No 1{table QD Lisinopril 20 MG 20 MG 5-04 t} 20 MG 00:00: 00 Lisinopril Lisinopril 2022-0 No 1{table QD Lisinopril 20 MG 20 MG 5-04 t} 20 MG 00:00: 00 Lisinopril Lisinopril 2022-0 No 1{table QD Lisinopril 20 MG 20 MG 5-04 t} 20 MG 00:00: 00 Trulicity Trulicity 2-0 2- No Trulicity 1.5mg/0.5ml 1.5mg/0.5ml -04 -03 1.5mg/0.5m 00:00: 00:00 l 00 :00 Metoprolol Metoprolol 2022-0 No 1{table QD Metoprolol Succinate Succinate 3-17 t} Succinate ER 25 MG ER 25 MG 00:00: ER 25 MG 00 Lisinopril Lisinopril 2-0 No 1{table QD Lisinopril 10 MG 10 MG 3-17 t} 10 MG 00:00: 00 glipiZIDE glipiZIDE 2022-0 No 1{table QD glipiZIDE ER 10 MG ER 10 MG 3-17 t_with_ ER 10 MG 00:00: st} Metoprolol Metoprolol 2022-0 No 1{table QD Metoprolol Succinate Succinate 3-17 t} Succinate ER 25 MG ER 25 MG 00:00: ER 25 MG 00 glipiZIDE glipiZIDE 2022-0 No 1{table QD glipiZIDE ER 10 MG ER 10 MG 3-17 t_with_ ER 10 MG 00:00: st} Metoprolol Metoprolol 2022-0 No 1{table QD Metoprolol Succinate Succinate 3-17 t} Succinate ER 25 MG ER 25 MG 00:00: ER 25 MG 00 glipiZIDE glipiZIDE 2021-0 No 1{table QD glipiZIDE ER 10 MG ER 10 MG 3-17 t_with_ ER 10 MG 00:00: st} Metoprolol Metoprolol 2-0 No 1{table QD Metoprolol Succinate Succinate 3-17 t} Succinate ER 25 MG ER 25 MG 00:00: ER 25 MG 00 glipiZIDE glipiZIDE 2021-0 No 1{table QD glipiZIDE ER 10 MG ER 10 MG 3-17 t_with_ ER 10 MG 00:00: st} Metoprolol Metoprolol 2-0 No 1{table QD Metoprolol Succinate Succinate 3-17 t} Succinate ER 25 MG ER 25 MG 00:00: ER 25 MG 00 Metoprolol Metoprolol 2-0 No 1{table QD Metoprolol Succinate Succinate 3-17 t} Succinate ER 25 MG ER 25 MG 00:00: ER 25 MG 00 Metoprolol Metoprolol 2-0 No 1{table QD Metoprolol Succinate Succinate 3-17 t} Succinate ER 25 MG ER 25 MG 00:00: ER 25 MG 00 Metoprolol Metoprolol 2-0 No 1{table QD Metoprolol Succinate Succinate 3-17 t} Succinate ER 25 MG ER 25 MG 00:00: ER 25 MG 00 Metoprolol Metoprolol 2-0 No 1{table QD Metoprolol Succinate Succinate 3-17 t} Succinate ER 25 MG ER 25 MG 00:00: ER 25 MG 00 Metoprolol Metoprolol 2-0 No 1{table QD Metoprolol Succinate Succinate 3-17 t} Succinate ER 25 MG ER 25 MG 00:00: ER 25 MG 00 Metoprolol Metoprolol 2-0 No 1{table QD Metoprolol Succinate Succinate 3-17 t} Succinate ER 25 MG ER 25 MG 00:00: ER 25 MG 00 Metoprolol Metoprolol 2-0 No 1{table QD Metoprolol Succinate Succinate 3-17 t} Succinate ER 25 MG ER 25 MG 00:00: ER 25 MG 00 glipiZIDE glipiZIDE 2-0 No 1{table QD glipiZIDE ER 10 MG ER 10 MG 3-17 t_with_ ER 10 MG 00:00: 00 st} Lisinopril Lisinopril 0 No 1{table QD Lisinopril 10 MG 10 MG 3-17 t} 10 MG 00:00: 00 Clopidogrel Clopidogrel 2019-05 No 1{table QD Clopidogre Bisulfate Bisulfate 0-30 t} l 75 MG 75 MG 00:00: Bisulfate 00 75 MG metFORMIN metFORMIN 2019-05 No 1{table BID metFORMIN HCl 1000 MG HCl 1000 MG 0-30 t_with_ HCl 1000 00:00: a_meal} MG 00 metFORMIN metFORMIN 2019-05 No 1{table BID metFORMIN HCl 1000 MG HCl 1000 MG 0-30 t_with_ HCl 1000 00:00: a_meal} MG 00 Clopidogrel Clopidogrel 2019-05 No 1{table QD Clopidogre Bisulfate Bisulfate 0-30 t} l 75 MG 75 MG 00:00: Bisulfate 00 75 MG Clopidogrel Clopidogrel 2019-05 No 1{table QD Clopidogre Bisulfate Bisulfate 0-30 t} l 75 MG 75 MG 00:00: Bisulfate 00 75 MG metFORMIN metFORMIN 2019-05 No 1{table BID metFORMIN HCl 1000 MG HCl 1000 MG 0-30 t_with_ HCl 1000 00:00: a_meal} MG 00 Clopidogrel Clopidogrel 2019-05 No 1{table QD Clopidogre Bisulfate Bisulfate 0-30 t} l 75 MG 75 MG 00:00: Bisulfate 00 75 MG metFORMIN metFORMIN 2019-05 No 1{table BID metFORMIN HCl 1000 MG HCl 1000 MG 0-30 t_with_ HCl 1000 00:00: a_meal} MG 00 metFORMIN metFORMIN 2019-05 No 1{table BID metFORMIN HCl 1000 MG HCl 1000 MG 0-30 t_with_ HCl 1000 00:00: a_meal} MG 00 metFORMIN metFORMIN 2019-05 No 1{table BID metFORMIN HCl 1000 MG HCl 1000 MG 0-30 t_with_ HCl 1000 00:00: a_meal} MG 00 metFORMIN metFORMIN 2019-05 No 1{table BID metFORMIN HCl 1000 MG HCl 1000 MG 0-30 t_with_ HCl 1000 00:00: a_meal} MG 00 metFORMIN metFORMIN 2019-05 No 1{table BID metFORMIN HCl 1000 MG HCl 1000 MG 0-30 t_with_ HCl 1000 00:00: a_meal} MG 00 metFORMIN metFORMIN 2019-05 No 1{table BID metFORMIN HCl 1000 MG HCl 1000 MG 0-30 t_with_ HCl 1000 00:00: a_meal} MG 00 Clopidogrel Clopidogrel 2020-1 No 1{table QD Clopidogre Bisulfate Bisulfate 0-30 t} l 75 MG 75 MG 00:00: Bisulfate 00 75 MG Atorvastati Atorvastati No 1{table QD Atorvastat n Calcium n Calcium t} in Calcium 40 MG 40 MG 40 MG Glucometer Glucometer No BID Glucometer Kit Kit Kit Atorvastati Atorvastati No 1{table QD Atorvastat n Calcium n Calcium t} in Calcium 40 MG 40 MG 40 MG Glucometer Glucometer No BID Glucometer Kit Kit Kit Folic Acid Folic Acid No 1{table QD Folic Acid 1 MG 1 MG t} 1 MG Aspirin 81 Aspirin 81 No 1{table QD Aspirin 81 MG MG t} MG Glucometer Glucometer No BID Glucometer Kit Kit Kit Aspirin 81 Aspirin 81 No 1{table QD Aspirin 81 MG MG t} MG Folic Acid Folic Acid No 1{table QD Folic Acid 1 MG 1 MG t} 1 MG Trulicity Trulicity No Trulicity 0.75 0.75 0.75 MG/0.5ML MG/0.5ML MG/0.5ML Atorvastati Atorvastati No 1{table QD Atorvastat n Calcium n Calcium t} in Calcium 40 MG 40 MG 40 MG Glucometer Glucometer No BID Glucometer Kit Kit Kit Aspirin 81 Aspirin 81 No 1{table QD Aspirin 81 MG MG t} MG Folic Acid Folic Acid No 1{table QD Folic Acid 1 MG 1 MG t} 1 MG Trulicity Trulicity No Trulicity 0.75 0.75 0.75 MG/0.5ML MG/0.5ML MG/0.5ML Atorvastati Atorvastati No 1{table QD Atorvastat n Calcium n Calcium t} in Calcium 40 MG 40 MG 40 MG Clopidogrel Clopidogrel No Clopidogre Bisulfate Bisulfate l 75 MG 75 MG Bisulfate 75 MG Aspirin 81 Aspirin 81 No 1{table QD Aspirin 81 MG MG t} MG Folic Acid Folic Acid No 1{table QD Folic Acid 1 MG 1 MG t} 1 MG Metoprolol Metoprolol No Metoprolol Succinate Succinate Succinate ER 50 MG ER 50 MG ER 50 MG Atorvastati Atorvastati No Atorvastat n Calcium n Calcium in Calcium 40 MG 40 MG 40 MG glipiZIDE glipiZIDE No glipiZIDE ER 10 MG ER 10 MG ER 10 MG Glucometer Glucometer No BID Glucometer Kit Kit Kit Trulicity Trulicity No Trulicity 0.75 0.75 0.75 MG/0.5ML MG/0.5ML MG/0.5ML Clopidogrel Clopidogrel No Clopidogre Bisulfate Bisulfate l 75 MG 75 MG Bisulfate 75 MG Aspirin 81 Aspirin 81 No 1{table QD Aspirin 81 MG MG t} MG Folic Acid Folic Acid No 1{table QD Folic Acid 1 MG 1 MG t} 1 MG Metoprolol Metoprolol No Metoprolol Succinate Succinate Succinate ER 50 MG ER 50 MG ER 50 MG Atorvastati Atorvastati No Atorvastat n Calcium n Calcium in Calcium 40 MG 40 MG 40 MG glipiZIDE glipiZIDE No glipiZIDE ER 10 MG ER 10 MG ER 10 MG Trulicity Trulicity No Trulicity 0.75 0.75 0.75 MG/0.5ML MG/0.5ML MG/0.5ML Glucometer Glucometer No BID Glucometer Kit Kit Kit Clopidogrel Clopidogrel No Clopidogre Bisulfate Bisulfate l 75 MG 75 MG Bisulfate 75 MG Aspirin 81 Aspirin 81 No 1{table QD Aspirin 81 MG MG t} MG Folic Acid Folic Acid No 1{table QD Folic Acid 1 MG 1 MG t} 1 MG Metoprolol Metoprolol No Metoprolol Succinate Succinate Succinate ER 50 MG ER 50 MG ER 50 MG Atorvastati Atorvastati No Atorvastat n Calcium n Calcium in Calcium 40 MG 40 MG 40 MG glipiZIDE glipiZIDE No glipiZIDE ER 10 MG ER 10 MG ER 10 MG Trulicity Trulicity No Trulicity 0.75 0.75 0.75 MG/0.5ML MG/0.5ML MG/0.5ML Glucometer Glucometer No BID Glucometer Kit Kit Kit Aspirin 81 Aspirin 81 No 1{table QD Aspirin 81 MG MG t} MG Lisinopril Lisinopril No 1{table QD Lisinopril 20 MG 20 MG t} 20 MG Folic Acid Folic Acid No 1{table QD Folic Acid 1 MG 1 MG t} 1 MG glipiZIDE glipiZIDE No 1{table QD glipiZIDE ER 10 MG ER 10 MG t_with_ ER [address]} Atorvastati Atorvastati No Atorvastat n Calcium n Calcium in Calcium 40 MG 40 MG 40 MG Atorvastati Atorvastati No 1{table QD Atorvastat n Calcium n Calcium t} in Calcium 40 MG 40 MG 40 MG Glucometer Glucometer No BID Glucometer Kit Kit Kit glipiZIDE glipiZIDE No glipiZIDE ER 10 MG ER 10 MG ER 10 MG Metoprolol Metoprolol No Metoprolol Succinate Succinate Succinate ER 50 MG ER 50 MG ER 50 MG Clopidogrel Clopidogrel No 1{table QD Clopidogre Bisulfate Bisulfate t} l 75 MG 75 MG Bisulfate 75 MG metFORMIN metFORMIN No 1{table BID metFORMIN HCl 1000 MG HCl 1000 MG t_with_ HCl 1000 a_meal} MG Clopidogrel Clopidogrel No Clopidogre Bisulfate Bisulfate l 75 MG 75 MG Bisulfate 75 MG Atorvastati Atorvastati No Atorvastat n Calcium n Calcium in Calcium 40 MG 40 MG 40 MG Lisinopril Lisinopril No 1{table QD Lisinopril 20 MG 20 MG t} 20 MG Clopidogrel Clopidogrel No Clopidogre Bisulfate Bisulfate l 75 MG 75 MG Bisulfate 75 MG metFORMIN metFORMIN No 1{table BID metFORMIN HCl 1000 MG HCl 1000 MG t_with_ HCl 1000 a_meal} MG Metoprolol Metoprolol No Metoprolol Succinate Succinate Succinate ER 50 MG ER 50 MG ER 50 MG Aspirin 81 Aspirin 81 No 1{table QD Aspirin 81 MG MG t} MG Glucometer Glucometer No BID Glucometer Kit Kit Kit Folic Acid Folic Acid No 1{table QD Folic Acid 1 MG 1 MG t} 1 MG glipiZIDE glipiZIDE No glipiZIDE ER 10 MG ER 10 MG ER 10 MG Clopidogrel Clopidogrel No Clopidogre Bisulfate Bisulfate l 75 MG 75 MG Bisulfate 75 MG Aspirin 81 Aspirin 81 No 1{table QD Aspirin 81 MG MG t} MG Folic Acid Folic Acid No 1{table QD Folic Acid 1 MG 1 MG t} 1 MG Metoprolol Metoprolol No Metoprolol Succinate Succinate Succinate ER 50 MG ER 50 MG ER 50 MG Atorvastati Atorvastati No Atorvastat n Calcium n Calcium in Calcium 40 MG 40 MG 40 MG glipiZIDE glipiZIDE No glipiZIDE ER 10 MG ER 10 MG ER 10 MG Trulicity Trulicity No Trulicity 0.75 0.75 0.75 MG/0.5ML MG/0.5ML MG/0.5ML Glucometer Glucometer No BID Glucometer Kit Kit Kit Aspirin 81 Aspirin 81 No 1{table QD Aspirin 81 MG MG t} MG Lisinopril Lisinopril No 1{table QD Lisinopril 20 MG 20 MG t} 20 MG Folic Acid Folic Acid No 1{table QD Folic Acid 1 MG 1 MG t} 1 MG glipiZIDE glipiZIDE No 1{table QD glipiZIDE ER 10 MG ER 10 MG t_with_ ER [address]} Atorvastati Atorvastati No Atorvastat n Calcium n Calcium in Calcium 40 MG 40 MG 40 MG Atorvastati Atorvastati No 1{table QD Atorvastat n Calcium n Calcium t} in Calcium 40 MG 40 MG 40 MG Glucometer Glucometer No BID Glucometer Kit Kit Kit glipiZIDE glipiZIDE No glipiZIDE ER 10 MG ER 10 MG ER 10 MG Metoprolol Metoprolol No Metoprolol Succinate Succinate Succinate ER 50 MG ER 50 MG ER 50 MG Clopidogrel Clopidogrel No 1{table QD Clopidogre Bisulfate Bisulfate t} l 75 MG 75 MG Bisulfate 75 MG metFORMIN metFORMIN No 1{table BID metFORMIN HCl 1000 MG HCl 1000 MG t_with_ HCl 1000 a_meal} MG Clopidogrel Clopidogrel No Clopidogre Bisulfate Bisulfate l 75 MG 75 MG Bisulfate 75 MG Glucometer Glucometer No BID Glucometer Kit Kit Kit Trulicity Trulicity No Trulicity 0.75mg/0.5m 0.75mg/0.5m 0.75mg/0.5 l l ml Aspirin 81 Aspirin 81 No 1{table QD Aspirin 81 MG MG t} MG Folic Acid Folic Acid No 1{table QD Folic Acid 1 MG 1 MG t} 1 MG Atorvastati Atorvastati No 1{table QD Atorvastat n Calcium n Calcium t} in Calcium 40 MG 40 MG 40 MG Folic Acid Folic Acid No 1{table QD Folic Acid 1 MG 1 MG t} 1 MG Aspirin 81 Aspirin 81 No 1{table QD Aspirin 81 MG MG t} MG Trulicity Trulicity No Trulicity 0.75 0.75 0.75 MG/0.5ML MG/0.5ML MG/0.5ML Vital Signs Vital Name Observation Time Observation Value Comments Source height 2022-01-21 09:00:00 64.5 [in_i] [facility] weight 2022-01-21 09:00:00 142 [lb_av] [facility] temperature 2022-01-21 09:00:00 97.5 [degF] [facility] bmi 2022-01-21 09:00:00 24 kg/m2 [facility] oximetry 2022-01-21 09:00:00 96 % [facility] respiratory rate 2022-01-21 09:00:00 16 /min Comm on [facility] blood pressure 2022-01-21 09:00:00 128 mm[Hg] [facility] systolic [facility] blood pressure 2022-01-21 09:00:00 62 mm[Hg] [facility] diastolic [facility] height 2021-10-20 11:20:00 62.00 [in_i] [facility] weight 2021-10-20 11:20:00 135 [lb_av] [facility] 2021-10-20 11:20:00 24.69 kg/m2 [facility] height 2021-09-01 09:00:00 62.00 [in_i] [facility] weight 2021-09-01 09:00:00 135.8 [lb_av] [facility] temperature 2021-09-01 09:00:00 97.1 [degF] [facility] bmi 2021-09-01 09:00:00 24.84 kg/m2 [facility] oximetry 2021-09-01 09:00:00 97 % [facility] respiratory rate 2021-09-01 09:00:00 16 /min Comm on [facility] blood pressure 2021-09-01 09:00:00 134 mm[Hg] Common [facility] - systolic [facility] blood pressure 2021-09-01 09:00:00 80 mm[Hg] Common [facility] - diastolic [facility] height 2021 09:40:00 62.00 [in_i] Common [facility] weight 2021 09:40:00 135.8 [lb_av] Common [facility] temperature 2021 09:40:00 97.9 [degF] Common [facility] bmi 2021 09:40:00 24.84 kg/m2 [facility] oximetry 2021 09:40:00 97 % [facility] respiratory rate 2021 09:40:00 16 /min Comm on [facility] blood pressure 2021 09:40:00 132 mm[Hg] Common [facility] - systolic [facility] blood pressure 2021 09:40:00 74 mm[Hg] Common [facility] - diastolic [facility] Procedures This patient has no known procedures. Encounters Start End Encounter Admission Attending Care Care Encounter Source Date/Time Date/Time Type Type Clinicians Facility Department ID 2022-02-23 Outpatient SHIV [facility] [id number] Common 10:37:02 Karen [facility] 2021-10-20 Outpatient Lily [facility] [id number] Common 09:38:01 Karen [facility] 2021-09-02 Outpatient Bautista [facility] [id number] Common 16:49:01 Karen [facility] 2021-08-30 Outpatient Lily [facility] [id number] Common 14:03:05 Karen [facility] 2021-08-12 Outpatient Lily [facility] [id number] Common 09:27:02 Karen [facility] 2021 Outpatient Bautista, STLMLC ST[facility] [id number] Common 09:32:04 Karen [facility] 2022-04-21 2022-04-21 (TEL) STLMLC ST[facility] [id number] Co mmon 00:00:00 00:00:00 [facility] 2022-01-21 2022-01-21 OFFICE STLMLC STLMLC [id number] Co mmon 00:00:00 00:00:00 VISIT [facility] PT - CHI LEVEL 4 [facility] 2022-01-20 2022-01-20 (TEL) STLMLC STLMLC [id number] Co mmon 00:00:00 00:00:00 [facility] 2022-01-12 2022-01-12 (TEL) STLMLC STLMLC [id number] Co mmon 00:00:00 00:00:00 [facility] 2021-12-29 2021-12-29 (TEL) STLMLC STLMLC [id number] Co mmon 00:00:00 00:00:00 [facility] 2021-10-20 2021-10-20 (TEL) STLMLC STLMLC [id number] Co mmon 00:00:00 00:00:00 [facility] 2021-10-20 2021-10-20 OL DIG E/M STLMLC STLMLC [id number] Common 00:00:00 00:00:00 SVC 5-10 Spiri t [facility] 2021-09-01 2021-09-01 OFFICE STLMLC STLMLC [id number] Co mmon 00:00:00 00:00:00 VISIT [facility] PT - CHI LEVEL 4 [facility] 2021-08-16 2021-08-16 (TEL) STLMLC STLMLC [id number] Co mmon 00:00:00 00:00:00 [facility] 2021 2021 OFFICE STLMLC STLMLC [id number] Co mmon 00:00:00 00:00:00 VISIT Lester GASTON PT - CHI LEVEL 4 [facility] Results Test Description Test Time Test Comments Results Result Comments Source HEMOGLOBIN A1C 2021-09-01 00:00:00 Test Item Value Reference Range Interpretation Comme nts A1C (test code = 4548-4) 9.0
[2022-07-04 01:29] LABS: Absolute Lymphocytes (CBC) 3.5 K/uL (0.7-4.9); Hematocrit 41.2 % (36.0-45.0); Lymphocytes % 28.3 % (15.3-44.8); MCV 84.7 fL (80-100); MPV 8.1 fL (7.6-11.3); RBC Red Blood Cell Count 4.86 M/uL (3.86-4.86)
[2022-07-04 01:31] LABS: Protime INR 0.99
[2022-07-04] MEDS ORDERED: cloNIDine HCL 0.1 MG TAB ONE (01:36)
[2022-07-04] MEDS ORDERED: HYDROCODONE/APAP 5/325 MG TAB ONE (01:36)
[2022-07-04] MEDS ORDERED: CYCLOBENZAPRINE 10 MG TAB ONE (01:36)
[2022-07-04 02:03] LABS: BUN Blood Urea Nitrogen 14 mg/dL (7-18); Bicarbonate 30 mmol/L (21-32); Glomerular Filtration Rate 78 ml/min (=/>90); Glucose Level 180 mg/dL (74-106); Sodium Level 141 mmol/L (136-145)
[2022-07-04 02:04] LABS: Potassium 3.7 mmol/L (3.5-5.1); Troponin High Sensitivity 83.7 pg/mL (<58.9)
[2022-07-04] MEDS ORDERED: HYDRALAZINE HCL 25 MG TABLET ONE (02:31)
[2022-07-04] MEDS ORDERED: ASPIRIN 81 MG CHEWABLE TABLET ONE (02:31)
[2022-07-04 02:35] LABS: ALT/SGPT 18 U/L (13-56); Albumin 3.9 g/dL (3.4-5.0); Alkaline Phosphatase 105 U/L (45-117); Bilirubin Total 0.5 mg/dL (0.2-1.0); NT PRO-BNP 333 pg/mL (<125); Protein, Total 7.4 g/dL (6.4-8.2)
[2022-07-04 02:40] LABS: AST/SGOT 14 U/L (15-37); Bilirubin Direct < 0.1 mg/dL (0-0.2)
--- NOTE | 2022-07-04 02:42 | ER ---
Nurse's Notes [facility] Name: Venecia Ware Age: 66 yrs Sex: Female : 1955 Arrival Date: 07/04/2022 Time: 00:45 Bed 14 Private MD: Diagnosis: Subsequent non-ST elevation (NSTEMI) myocardial infarction;Hypertensive heart disease without heart failure;Hypertensive urgency Presentation: 07/04 00:47 Chief complaint: Patient states: "I was at work and I didn't injure myself but my ankle as6 starting really hurting me. now both of my ankles are swollen". Coronavirus screen: At this time, the client does not indicate any symptoms associated with coronavirus-19. Ebola Screen: No symptoms or risks identified at this time. Initial Sepsis Screen: Does the patient meet any 2 criteria? No. Patient's initial sepsis screen is negative. Does the patient have a suspected source of infection? No. Patient's initial sepsis screen is negative. Risk Assessment: Do you want to hurt yourself or someone else? Patient reports no desire to harm self or others. Onset of symptoms was July 04, 2022. 00:47 Method Of Arrival: Wheelchair as6 00:47 Acuity: CARLOS A 2 as6 Historical: - Allergies: 00:52 No Known Allergies; as6 - Home Meds: 02:33 aspirin 81 mg oral tab 81 mg daily [Active]; metoprolol tartrate 25 mg oral tab 1 tab pf1 once daily [Active]; atorvastatin 40 mg oral tab 1 tab once daily [Active]; metformin 1,000 mg oral tab 1 tab 2 times per day [Active]; Plavix 75 mg oral tab 1 tab once daily [Active]; glipizide 10 mg Oral tab 1 tab once daily [Active]; lisinopril 10 mg Oral tab 1 tab once daily [Active]; Trulicity 1.5 mg/0.5 mL subcutaneous pnij 0.5 mL once wkly [Active]; - PMHx: 00:52 Diabetes - NIDDM; Hyperlipidemia; Hypertension; Myocardial infarction; as6 - PSHx: 00:52 Stented artery; as6 - Immunization history:: Client reports receiving the 2nd dose of the Covid vaccine, moderna. - Social history:: Smoking status: Patient denies any tobacco usage or history of. - Family history:: not pertinent. Screenin:06 [facility] ED Fall Risk Assessment (Adult) History of falling in the last 3 months, pf1 including since admission No falls in past 3 months (0 pts) Confusion or Disorientation No (0 pts) Intoxicated or Sedated No (0 pts) Impaired Gait No (0 pts) Mobility Assist Device Used No (0 pt) Altered Elimination No (0 pt) Score/Fall Risk Level 0 - 2 = Low Risk Oriented to surroundings, Maintained a safe environment, Educated pt \\T\\ family on fall prevention, incl call for assistance when getting out of bed, Assessed \\T\\ reinforced patient's understanding of fall precautions, Provided non-skid footwear, Hourly rounding (assess needs \\T\\ fall precautionary measures) done, Used ambulatory aids as needed (educated on \\T\\ assisted with), Used gait belt as appropriate. Abuse screen: Denies threats or abuse. Nutritional screening: No deficits noted. Tuberculosis screening: No symptoms or risk factors identified. Assessment: 01:02 General: Appears in no apparent distress. comfortable, well groomed, well developed, pf1 Behavior is calm, cooperative, appropriate for age, quiet. Pain: Complains of pain in left leg Pain currently is 8 out of 10 on a pain scale. Neuro: No deficits noted. Level of Consciousness is awake, alert, obeys commands, Oriented to person, place, time, situation. Cardiovascular: No deficits noted. Capillary refill < 3 seconds Patient's skin is warm and dry. Respiratory: No deficits noted. Airway is patent Trachea midline Respiratory effort is even, unlabored, Respiratory pattern is regular, symmetrical. GI: No deficits noted. No signs and/or symptoms were reported involving the gastrointestinal system. : No deficits noted. No signs and/or symptoms were reported regarding the genitourinary system. EENT: No deficits noted. No signs and/or symptoms were reported regarding the EENT system. Derm: No deficits noted. No signs and/or symptoms reported regarding the dermatologic system. Musculoskeletal: Reports pain in left leg since 1999 tonight. Patient denies any injury to left leg. 02:00 Reassessment: Patient appears in no apparent distress at this time. Patient and/or pf1 family updated on plan of care and expected duration. Pain level reassessed. Patient is alert, oriented x 3, equal unlabored respirations, skin warm/dry/pink. Patient states feeling better. Patient states symptoms have improved. Vital Signs: 00:47 BP 209 / 118; Pulse 103; Resp 18 S; Temp 98.3(O); Pulse Ox 99% on R/A; Weight 70.31 kg as6 (R); Height 5 ft. 2 in. (157.48 cm) (R); Pain 8/10; 01:15 BP 190 / 106; Pulse 98; Resp 16; Pulse Ox 98% on R/A; Pain 6/10; pf1 02:00 BP 181 / 99; Pulse 95; Resp 17; Pulse Ox 97% on R/A; Pain 6/10; pf1 00:47 Body Mass Index 28.35 (70.31 kg, 157.48 cm) as6 ED Course: 00:45 Patient arrived in ED. jj6 00:49 Capo Moran MD is Attending Physician. sp4 00:52 Triage completed. as6 00:52 Arm band placed on. as6 00:56 Sharlene orozco, NISA is Primary Nurse. pf1 01:15 No provider procedures requiring assistance completed. Inserted saline lock: 20 gauge pf1 in right antecubital area, using aseptic technique. Blood collected. 01:35 Troponin HS Sent. pf1 01:35 PT-INR Sent. pf1 01:35 D-Dimer Sent. pf1 01:35 CBC with Diff Sent. pf1 01:35 Basic Metabolic Panel Sent. pf1 02:20 Hepatic Function Sent. pf1 02:20 PROBNP Sent. pf1 02:37 Capo Moran MD is Hospitalizing Provider. sp4 02:37 Hospitalizing Provider role handed off by Capo Moran MD sp4 02:37 David Trejo MD is Hospitalizing Provider. sp4 Administered Medications: 01:25 Drug: cloNIDine 0.2 mg Route: PO; pf1 02:22 Follow up: Response: Blood pressure is lowered pf1 01:25 Drug: Flexeril (cyclobenzaprine) 10 mg Route: PO; pf1 02:22 Follow up: Response: No adverse reaction; Marked relief of symptoms; Pain is decreased pf1 01:25 Drug: HYDROcodone-acetaminophen 5 mg-325 mg 1 tabs Route: PO; pf1 02:22 Follow up: Response: No adverse reaction; Marked relief of symptoms pf1 02:30 Drug: Aspirin Chewable Tablet 324 mg Route: PO; pf1 02:30 Drug: HydrALAZINE 25 mg Route: PO; pf1 Outcome: 02:41 Decision to Hospitalize by Provider. sp4 Signatures: Rachel [id number] Luis M Benavides RN RN as6 Sharlene orozco RN RN pf1 Capo Moran MD MD sp4
--- NOTE | 2022-07-04 02:42 | EDPHYS ---
Physician Documentation [facility] Name: Venecia Ware Age: 66 yrs Sex: Female : 1955 Arrival Date: 07/04/2022 Time: 00:45 Bed 14 Private MD: ED Physician Capo Moran HPI: 07/04 00:49 This 66 yrs old Female presents to ER via Unassigned with complaints of sp4 Swelling of Lower Extremity, Leg Pain. 01:54 The patient presents with pain, that is acute. 66-year-old female with past medical sp4 history of diabetes and hypertension on p.o. Plavix presents with acute onset of left lower extremity pain medial left calf with radiation to left thigh with spontaneous onset without traumatic injury, patient denies swelling, denies redness, denies skin changes, denied numbness or tingling, on presentation patient is hypertensive. Historical: - Allergies: 00:52 No Known Allergies; as6 - Home Meds: 02:33 aspirin 81 mg oral tab 81 mg daily [Active]; metoprolol tartrate 25 mg oral tab 1 tab pf1 once daily [Active]; atorvastatin 40 mg oral tab 1 tab once daily [Active]; metformin 1,000 mg oral tab 1 tab 2 times per day [Active]; Plavix 75 mg oral tab 1 tab once daily [Active]; glipizide 10 mg Oral tab 1 tab once daily [Active]; lisinopril 10 mg Oral tab 1 tab once daily [Active]; Trulicity 1.5 mg/0.5 mL subcutaneous pnij 0.5 mL once wkly [Active]; - PMHx: 00:52 Diabetes - NIDDM; Hyperlipidemia; Hypertension; Myocardial infarction; as6 - PSHx: 00:52 Stented artery; as6 - Immunization history:: Client reports receiving the 2nd dose of the Covid vaccine, moderna. - Social history:: Smoking status: Patient denies any tobacco usage or history of. - Family history:: not pertinent. ROS: 01:54 Constitutional: Negative for fever, chills, and weight loss, Eyes: Negative for injury, sp4 pain, redness, and discharge, ENT: Negative for injury, pain, and discharge, Neck: Negative for injury, pain, and swelling, Cardiovascular: Negative for chest pain, palpitations, and edema, Respiratory: Negative for shortness of breath, cough, wheezing, and pleuritic chest pain, Abdomen/GI: Negative for abdominal pain, nausea, vomiting, diarrhea, and constipation, Back: Negative for injury and pain, : Negative for injury, bleeding, discharge, and swelling, MS/Extremity: Negative for injury and deformity, positive for nontraumatic pain in the left lower extremity left medial calf with radiation up into the left thigh, no numbness, no tingling and no skin change Skin: Negative for injury, rash, and discoloration, Neuro: Negative for headache, weakness, numbness, tingling, and seizure, Psych: Negative for depression, anxiety, suicide ideation, homicidal ideation, and hallucinations, Allergy/Immunology: Negative for hives, rash, and allergies, Endocrine: Negative for neck swelling, polydipsia, polyuria, polyphagia, and marked weight changes, Hematologic/Lymphatic: Negative for swollen nodes, abnormal bleeding, and unusual bruising. Exam: 01:54 Constitutional: This is a well developed, well nourished patient who is awake, alert, sp4 and in no acute distress. Head/Face: Normocephalic, atraumatic. Eyes: Pupils equal round and reactive to light, extra-ocular motions intact. Lids and lashes normal. Conjunctiva and sclera are non-icteric and not injected. Cornea within normal limits. Periorbital areas with no swelling, redness, or edema. ENT: Nares patent. No nasal discharge, no septal abnormalities noted. Tympanic membranes are normal and external auditory canals are clear. Oropharynx with no redness, swelling, or masses, exudates, or evidence of obstruction, uvula midline. Mucous membranes moist. Neck: Trachea midline, no thyromegaly or masses palpated, and no cervical lymphadenopathy. Supple, full range of motion without nuchal rigidity, or vertebral point tenderness. No Meningismus. Chest/axilla: Normal chest wall appearance and motion. Nontender with no deformity. No lesions are appreciated. Cardiovascular: Regular rate and rhythm with a normal S1 and S2. No gallops, murmurs, or rubs. Normal PMI, no JVD. No pulse deficits. Respiratory: Lungs have equal breath sounds bilaterally, clear to auscultation and percussion. No rales, rhonchi or wheezes noted. No increased work of breathing, no retractions or nasal flaring. Abdomen/GI: Soft, non-tender, with normal bowel sounds. No distension or tympany. No guarding or rebound. No evidence of tenderness throughout. Back: No spinal tenderness. No costovertebral tenderness. Full range of motion. Skin: Warm, dry with normal turgor. Normal color with no rashes, no lesions, and no evidence of cellulitis. MS/ Extremity: Pulses equal, no cyanosis. Neurovascular intact. Full, normal range of motion. Neuro: Awake and alert, GCS 15, oriented to person, place, time, and situation. Cranial nerves II-XII grossly intact. Motor strength 5/5 in all extremities. Sensory grossly intact. Cerebellar exam normal. Normal gait. Psych: Awake, alert, with orientation to person, place and time. Behavior, mood, and affect are within normal limits. 02:24 ECG was reviewed by the Attending Physician. EKG time 0 2:15 in the morning there is sp4 normal sinus rhythm at a rate of 96 bpm, normal intervals, left atrial enlargement, left ventricular hypertrophy, no ST elevation or depression, no ectopy Vital Signs: 00:47 BP 209 / 118; Pulse 103; Resp 18 S; Temp 98.3(O); Pulse Ox 99% on R/A; Weight 70.31 kg as6 (R); Height 5 ft. 2 in. (157.48 cm) (R); Pain 8/10; 01:15 BP 190 / 106; Pulse 98; Resp 16; Pulse Ox 98% on R/A; Pain 6/10; pf1 02:00 BP 181 / 99; Pulse 95; Resp 17; Pulse Ox 97% on R/A; Pain 6/10; pf1 00:47 Body Mass Index 28.35 (70.31 kg, 157.48 cm) as6 MDM: 00:58 Patient medically screened. sp4 01:54 Differential diagnosis: contusion, tendonitis, DVT, cellulitis, nontraumatic sp4 musculoskeletal pain. Data reviewed: vital signs, nurses notes, old medical records, lab test result(s), radiologic studies, doppler. ED course: 66-year-old female with history of hypertension and ryk-hpcdcax-qpuwlqdtw diabetes mellitus presents with acute onset of nontraumatic left lower extremity pain was situated around the left calf and also left lower thigh, patient was given pain medications and also clonidine for elevated blood pressure, patient was also given ultrasound of the bilateral lower extremities and DVTs were ruled out, patient has no signs of arterial occlusion with normal peripheral pulses by examination, and patient has improved blood pressure after p.o. clonidine. Patient will be advised to see her director of cath lab for follow-up for uncontrolled hypertension, as needed clonidine will be prescribed. 02:12 ED course: Patient has manifested with elevated troponin on her labs and will be sp4 admitted for management of acute coronary syndrome and blood pressure control. 07/04 01:04 Order name: Extrem Venous W Compression [place] US 4 07/04 01:04 Order name: IV Saline Lock; Complete Time: 01:35 4 07/04 01:04 Order name: Labs collected and sent; Complete Time: 01:35 4 07/04 01:04 Order name: O2 Per Protocol; Complete Time: 01:35 4 07/04 01:04 Order name: O2 Sat Monitoring; Complete Time: 01:35 4 07/04 01:04 Order name: Troponin HS 4 07/04 01:04 Order name: PT-INR 4 07/04 01:04 Order name: D-Dimer 4 07/04 01:04 Order name: CBC with Diff 4 07/04 01:04 Order name: Basic Metabolic Panel 4 07/04 02:04 Order name: EKG; Complete Time: 02:05 4 07/04 02:04 Order name: EKG - Nurse/Tech; Complete Time: 02:17 4 07/04 01:31 Order name: Protime (+INR); Complete Time: 01:53 EDMS 07/04 01:31 Order name: D-Dimer; Complete Time: 01:53 EDMS 07/04 01:33 Order name: CBC with Automated Diff; Complete Time: 01:53 EDMS 07/04 02:04 Order name: Hepatic Function 4 07/04 02:04 Order name: PROBNP 4 07/04 02:32 Order name: SARS RAPID la1 07/04 02:04 Order name: Basic Metabolic Panel; Complete Time: 02:41 EDMS 07/04 02:04 Order name: Troponin High Sensitivity; Complete Time: 02:41 EDMS 07/04 02:40 Order name: Liver (Hepatic) Function; Complete Time: 02:41 EDMS 03/06 02:40 Order name: NT PRO-BNP; Complete Time: 02:41 EDMS EC:24 Rate is 96 beats/min. Rhythm is regular. QRS [place] is Normal. [place] interval is normal. QRS sp4 interval is normal. No ST changes noted. Clinical impression: No evidence of ischemia. Interpreted by me. Administered Medications: 01:25 Drug: cloNIDine 0.2 mg Route: PO; pf1 02:22 Follow up: Response: Blood pressure is lowered pf1 01:25 Drug: Flexeril (cyclobenzaprine) 10 mg Route: PO; pf1 02:22 Follow up: Response: No adverse reaction; Marked relief of symptoms; Pain is decreased pf1 01:25 Drug: HYDROcodone-acetaminophen 5 mg-325 mg 1 tabs Route: PO; pf1 02:22 Follow up: Response: No adverse reaction; Marked relief of symptoms pf1 02:30 Drug: Aspirin Chewable Tablet 324 mg Route: PO; pf1 02:30 Drug: HydrALAZINE 25 mg Route: PO; pf1 Disposition Summary: 07/04/22 02:41 Hospitalization Ordered Hospitalization Status: Inpatient Admission sp4 Provider: David Trejo sp4 Location: Telemetry/MedSur (Inpatient) sp4 Condition: Stable sp4 Problem: new sp4 Symptoms: are unchanged sp4 Bed/Room Type: Standard sp4 Room Assignment: sp4 Diagnosis - Subsequent non-ST elevation (NSTEMI) myocardial infarction sp4 - Hypertensive heart disease without heart failure sp4 - Hypertensive urgency sp4 Forms: - Medication Reconciliation Form sp4 - SBAR form sp4 Signatures: Dispatcher [employer] EDCA Gage Hernandez FNP-C FNP-Cla1 Luis M Benavides RN RN as6 Sharlene orozco RN RN pf1 Capo Moran MD MD sp4 Corrections: (The following items were deleted from the chart) 02:13 01:54 ED course: 66-year-old female with history of hypertension and sp4 [id number]-[id number] diabetes mellitus presents with acute onset of nontraumatic left lower extremity pain was situated around the left calf and also left lower thigh, patient was given pain medications and also clonidine for elevated blood pressure, patient was also given ultrasound of the bilateral lower extremities and DVTs were ruled out, patient has no signs of arterial occlusion with normal peripheral pulses by examination, and patient has improved blood pressure after p.o. clonidine. At this time she is stable for discharge home with recommendation to see her director of cath lab for follow-up for uncontrolled hypertension, as needed clonidine will be prescribed. sp4
--- NOTE | 2022-07-04 03:08 | P.HP ---
Certification for Inpatient Patient admitted to: Inpatient With expected LOS: >2 Midnights Patient will require the following post-hospital care: None Practitioner: I am a practitioner with admitting privileges, knowledge of patient current condition, hospital course, and medical plan of care. Services: Services provided to patient in accordance with Admission requirements found in Title 42 Section 412.3 of the Code of Federal Regulations <Gage Hernandez Neptali Hernandez - Last Filed: 07/04/22 03:02> Patient History Date of Service: 07/04/22 Reason for admission: Hypertensive emergency History of Present Illness: 66-year-old female with history of hypertension, hyperlipidemia, CAD with previous stents, previous CVA, fwn-wcvnegh-hpbaqwtzx diabetes presents to the emergency department for lower extremity pain. She reports she was at work when she began to have left lower extremity pain followed by mild right lower extremity pain. She was evaluated in the emergency department ultrasound of the lower extremities negative bilaterally for DVT. She was noted to be very hypertensive with initial blood pressure of 209/118. She had a cardiac work-up, her high-sensitivity troponin is 83.7 BNP is 333. She was given 24 of aspirin, 25 mg of oral hydralazine in the emergency department as well as 0.2 mg of clonidine p.o. ED provider wishes to admit for hypertensive emergency, elevated troponin. Last heart catheterization 2019 with 1 stent placed, no further cardiac work-up since then. - Past Medical/Surgical History Diabetic: Yes -: HTN -: TIA, 2006 -: Endometreosis with Hysterectomy -: Hearing loss since her TIA -: Hyperlipidemia -: DM retinopathy with retinal disease -: Tobacco abuse -: CAD s/p stents x3 -: Hysterectomy -: Cholecystectomy -: Appendectomy -: 2 stent placement in 2013 Psychosocial/ Personal History: Single, Children-2, Work-[employer]. - Family History Father -: Heart disease, Hypertension, Diabetes Mother -: Hypertension Notes: Aneurysm x 2 - Social History Smoking Status: Never smoker Alcohol use: No CD- Drugs: No Caffeine use: No Place of Residence: Home <Gage Hernandez - Last Filed: 07/04/22 03:02> Date of Service: 07/05/22 <David Trejo - Last Filed: 07/05/22 00:11> Allergies No Known Allergies Allergy (Verified 11/19/19 04:30) Home Medications: Aspirin [Aspirin EC 81 MG] 81 mg PO DAILY #30 tablet. 02/01/20 Clopidogrel Bisulfate [Plavix] 75 mg PO DAILY 30 Days #30 tablet 02/01/20 Metformin HCl [Glucophage] 1,000 mg PO BID 30 Days #60 tablet 02/01/20 Atorvastatin Calcium [Lipitor] 40 mg PO BEDTIME 07/04/22 Dulaglutide [Trulicity] 1.5 mg SQ 1X MDD weekly x 1 dose 07/04/22 Glipizide [Glipizide ER] 10 mg PO DAILY 07/04/22 Lisinopril [Zestril] 10 mg PO DAILY 07/04/22 Metoprolol Tartrate [Lopressor*] 25 mg PO DAILY 07/04/22 Review of Systems 10-point ROS is otherwise unremarkable Musculoskeletal: Leg Pain <Gage Hernandez - Last Filed: 07/04/22 03:02> Physical Examination - Physical Exam General: Alert, In no apparent distress, Oriented x3 HEENT: Atraumatic, PERRLA, Mucous membr. moist/pink, EOMI, Sclerae nonicteric Neck: Supple, 2+ carotid pulse no bruit, No LAD, Without JVD or thyroid abnormality Respiratory: Clear to auscultation bilaterally, Normal air movement Cardiovascular: Regular rate/rhythm, Normal S1 S2 Gastrointestinal: Normal bowel sounds, No tenderness Musculoskeletal: No tenderness Integumentary: No rashes Neurological: Normal speech, Normal strength at 5/5 x4 extr, Normal tone, Normal affect - Studies Laboratory Data (last 24 hrs) 07/04/22 02:04: Total Bilirubin Cancelled, AST Cancelled, ALT Cancelled, Alkal ine Phosphatase Cancelled 07/04/22 01:14: PT 10.9, INR 0.99 07/04/22 01:14: WBC 12.30 H, Hgb 13.3, Hct 41.2, Plt Count 282 07/04/22 01:14: Sodium 141, Potassium 3.7, BUN 14, Creatinine 0.83, Glucose 180 H, Total Bilirubin 0.5, AST 14 L, ALT 18, Alkaline Phosphatase 105 <Gage Hernandez - Last Filed: 07/04/22 03:02> - Studies Laboratory Data (last 24 hrs) 07/04/22 02:04: Total Bilirubin Cancelled, AST Cancelled, ALT Cancelled, Alkaline Phosphatase Cancelled 07/04/22 01:14: PT 10.9, INR 0.99 07/04/22 01:14: WBC 12.30 H, Hgb 13.3, Hct 41.2, Plt Count 282 07/04/22 01:14: Sodium 141, Potassium 3.7, BUN 14, Creatinine 0.83, Glucose 180 H, Total Bilirubin 0.5, AST 14 L, ALT 18, Alkaline Phosphatase 105 <David Trejo - Last Filed: 07/05/22 00:11> Assessment and Plan - Plan Assessment: Hypertensive emergency with underlying primary hypertension CAD with previous stents most recent 2019 DMII-non insulin dependent HLD CVA Plan: Hypertensive emergency with underlying primary hypertension Bp improved in ED, mildly elevated trop. Home meds continued, lisinopril increased from 10 to 20mg. trend trops, monitor on tele, echo ordered and cardiology consulted, CAD with previous stents most recent 2019 Continue home meds, continue with above POC DMII-non insulin dependent ACHS accucheck, SSI HLD Statin continued CVA Continue home meds DVT PPX:Lovenox Code status:Full Discharge Plan: Home Plan to discharge in: 48 Hours - Advance Directives Does patient have a Living Will: No Does patient have a Durable POA for Healthcare: No - Code Status/Comfort Care Code Status Assessed: Yes (Full code) Critical Care: No Time Spent Managing Pts Care (In Minutes): 70 <Gage Hernandez - Last Filed: 07/04/22 03:02> - Plan seen/examined on rounds this AM HTN likely secondary to pain pain concerning for claudication arteriral dopplers cardio consult <David Trejo - Last Filed: 07/05/22 00:11>
[2022-07-04 03:26] LABS: SARS-CoV-2 Antigen Rapid Res Negative (Negative)
[2022-07-04] MEDS ORDERED: ONDANSETRON 4 MG/2 ML VIAL IV PRN (04:06)
[2022-07-04] MEDS ORDERED: HYDRALAZINE HCL 20 MG/ML VIAL IV PRN (04:06)
[2022-07-04 05:16] LABS: Thyroid Stimulating Hormone 4.78 uIU/mL (0.358-3.740); Troponin High Sensitivity 82.8 pg/mL (<58.9)
[2022-07-04] MEDS ORDERED: METOPROLOL XL 50 MG TAB PO ONE (05:42)
[2022-07-04] MEDS: METOPROLOL XL 25 MG TAB PO SCH (05:43)
[2022-07-04] MEDS: INSULIN -REGULAR HUMAN 50 UNIT/0.5 ML ML SQ SCH ×4 (07:30→21:00)
[2022-07-04] MEDS ORDERED: CLOPIDOGREL 75 MG TABLET ONE (07:45)
[2022-07-04] MEDS ORDERED: lisinopriL 10 MG TAB ONE (07:45)
[2022-07-04] MEDS ORDERED: ASPIRIN EC 81 MG TAB PO ONE (07:45)
[2022-07-04] MEDS ORDERED: INSULIN -REGULAR HUMAN 50 UNIT/0.5 ML ML ONE (07:46)
[2022-07-04] MEDS ORDERED: ENOXAPARIN 40 MG/0.4 ML SQ ONE (07:46)
[2022-07-04] MEDS: lisinopriL 10 MG TAB PO SCH (08:03)
[2022-07-04] MEDS: ASPIRIN EC 81 MG TAB PO SCH (08:03)
[2022-07-04] MEDS: CLOPIDOGREL 75 MG TABLET PO SCH (08:03)
[2022-07-04] MEDS: ENOXAPARIN 40 MG/0.4 ML SQ SCH (08:05)
--- NOTE | 2022-07-04 08:48 | RAD REPORT ---
EXAM DESCRIPTION: US - Lower Extremity Arterial Bilat - 07/04/2022 8:04 am CLINICAL HISTORY: b/l pain, ?PAD COMPARISON: No comparisonsNo comparisonsNo comparisons TECHNIQUE: Bilateral lower extremity arterial Doppler examination was performed with oj newsome FINDINGS: Triphasic waveforms are seen along the right RELOCATION MANAGER and proximal SFA. Biphasic waveforms are seen along the mid SFA through popliteal artery. The right posterior tibial artery appears to be occl uded. Monophasic waveform with stunted upstrokes seen along the dorsalis pedis artery on the right. On the left, triphasic waveforms seen along the left RELOCATION MANAGER. Proximal SFA through the dorsalis pedis art gardenia demonstrate biphasic waveforms, with the exception of the left posterior tibial artery which demo nstrates monophasic waveform. Moderate to advanced calcified atherosclerotic plaque seen throughout the lower extremity arterial sy stems bilaterally. IMPRESSION: Moderate to advanced peripheral vascular disease as above. A segment of the right local coordinator ior tibial artery appears to be occluded, although there is maintained flow along the right dorsalis pedis artery.
[2022-07-04] MEDS ORDERED: lisinopriL 20 MG TAB PO SCH (09:00)
--- NOTE | 2022-07-04 13:41 | RAD REPORT ---
EXAM DESCRIPTION: US - Extrem Venous W Compress [place] - 07/04/2022 1:38 am CLINICAL HISTORY: 66 years Female PAIN COMPARISON: None TECHNIQUE: Spectral analysis and color/grayscale sonographic images of both legs were obtained utili zing a high-frequency linear array transducer supplemented with color Doppler, compression and augmen tation techniques. FINDINGS: Right leg veins: Common femoral: normal Greater saphenous: normal Superficial femoral: normal Popliteal: normal Calf Veins: normal Left leg veins: Common femoral: normal Greater saphenous: normal Superficial femoral: normal Popliteal: normal Calf Veins: normal IMPRESSION: 1. No sonographic evidence for lower extremity deep venous thrombosis in either leg. Electronically signed by: Yovani Dunn MD 07/04/2022 1:46 AM ASSISTANT FOOD SERVICE MANAGER Due to temporary technical issues with the PACS/Fluency reporting system, reports are being signed by the in house radiologists without review as a courtesy to insure prompt reporting. The interpreting radiologist is fully responsible for the content of the report.
--- NOTE | 2022-07-04 16:37 | EKG ---
Test Date: 2022-07-04 Test Time: 02:15:24 Controller Instructor: GERALDO MEASUREMENT RESULTS: Intervals: Rate: 96 WY: 140 QRSD: 92 QT: 378 QTc: 477 Victor: P: 38 WY: 140 QRS: -19 T: -9 INTERPRETIVE STATEMENTS: Normal sinus rhythm Possible Left atrial enlargement Left ventricular hypertrophy Abnormal ECG Compared to ECG 02/05/2020 11:09:06 Left ventricular hypertrophy now present Electronically Signed On 07-04-22 16:35:38 CLOUD OPERATIONS ENGINEER by Lee Napoles
[2022-07-04] MEDS ORDERED: ATORVASTATIN 40 MG TAB PO SCH (21:00)
[2022-07-04] MEDS ORDERED: ATORVASTATIN 20 MG TAB ONE (21:34)
--- NOTE | 2022-07-04 23:02 | CON ---
Date of Consultation: 07/04/2022 Reason For Consultation: Elevated troponin. History Of Present Illness: This is a 66-year-old female with a past medical history of hypertension , dyslipidemia, coronary artery disease with previous stents, CVA, and diabetes, presented with lower extremity pain. She denies having any chest pain. Blood pressure was elevated 209/118 in the emerg ency room and troponin was slightly elevated. Denies having any chest pain or shortness of breath. Past Medical History: As outlined above in HPI. Medications: Refer consultation sheet for detailed list. Allergies: NO KNOWN DRUG ALLERGIES. Family History: No premature coronary artery disease or cancer. Social History: She does not smoke or drink. Does not use any drugs. Review of Systems: All systems reviewed are negative except for mentioned in HPI. Physical Examination: Vital Signs: Reviewed. Head and Neck: Pupils are equal, reactive to light. Intact eye movements. No JVD. No cervical lym phadenopathy. Neck is supple. Thyroid is not enlarged. Lungs: Clear to auscultation bilaterally. No rhonchi, wheezing, or cracles. No accessory muscle us e. Heart: Regular rate and rhythm. No extra sounds. Abdomen: Soft, nontender. Bowel sounds positive. No organomegaly. No masses or hernia. No rigidi ty or rebound. Extremities: No edema, clubbing, cyanosis. Intact pulses. SKIN: No rash. Neurologic: Alert, awake, and oriented x3. No acute focal deficits appreciated. Investigations: Troponin peaked at 83 and is trending down. BUN 14, creatinine 0.83. NT-proBNP is 333. Doppler study of the lower extremity showed a peripheral vascular disease bilaterally. Moderat e to severe venous Doppler. No DVT. Assessment/recommendations: 1.Lower extremity pain. Has significant peripheral vascular disease. We will plan for peripheral a ngiogram. Medication chavarria, continue aspirin and statin. 2.Elevated troponin. Patient has significant peripheral vascular disease, makes her high risk for a coronary artery disease as well. Plan for coronary angiogram the same time of peripheral angiogram. 3.Hypertension. Blood pressure is controlled. 4.Dyslipidemia. Continue statin. SR/MODL Voice ID: [id number] Report ID: [id number]
[2022-07-05] MEDS: MELATONIN 5 MG TABLET PO PRN ×2 (00:19→20:49)
[2022-07-05 02:53] LABS: Absolute Lymphocytes (CBC) 3.4 K/uL (0.7-4.9); Hematocrit 38.9 % (36.0-45.0); Lymphocytes % 32.4 % (15.3-44.8); MCV 85.6 fL (80-100); MPV 8.4 fL (7.6-11.3); RBC Red Blood Cell Count 4.54 M/uL (3.86-4.86)
[2022-07-05 03:14] LABS: Potassium 3.6 mmol/L (3.5-5.1)
[2022-07-05] MEDS: METOPROLOL XL 25 MG TAB PO SCH (06:00)
[2022-07-05] MEDS: INSULIN -REGULAR HUMAN 50 UNIT/0.5 ML ML SQ SCH ×4 (07:30→20:44)
[2022-07-05] MEDS: lisinopriL 10 MG TAB PO SCH (09:00)
[2022-07-05] MEDS: ENOXAPARIN 40 MG/0.4 ML SQ SCH (09:00)
[2022-07-05] MEDS: ASPIRIN EC 81 MG TAB PO SCH (09:00)
[2022-07-05] MEDS: CLOPIDOGREL 75 MG TABLET PO SCH (09:00)
[2022-07-05] MEDS ORDERED: CLOPIDOGREL 75 MG TABLET ONE (09:32)
[2022-07-05] MEDS ORDERED: ASPIRIN 81 MG CHEWABLE TABLET ONE (09:32)
[2022-07-05] MEDS ORDERED: lisinopriL 10 MG TAB ONE (09:33)
[2022-07-05] MEDS ORDERED: ENOXAPARIN 40 MG/0.4 ML SQ ONE (09:33)
--- NOTE | 2022-07-05 18:53 | P.PN ---
Subjective Date of Service: 07/05/22 Chief Complaint: Hypertensive emergency Patient denies any complaint today. Blood pressure readings fluctuates but mostly better. Physical Examination - Vital Signs Temperature: 97.5 F Blood Pressure: 171/89 Pulse: 100 Respirations: 16 Pulse Ox (%): 96 Assessment And Plan - Current Problems (Diagnosis) (1) Hypertensive emergency Current Visit: Yes Status: Acute (2) Peripheral vascular disease Current Visit: Yes Status: Acute (3) NSTEMI (non-ST elevated myocardial infarction) Current Visit: No Status: Acute (4) CAD (coronary artery disease) Onset Date: 01/14/16 Current Visit: No Status: Acute Qualifiers: Coronary Disease-Associated Artery/Lesion type: [place] artery [place] vs. transplanted heart: [place] heart Associated angina: without angina Qualified Code(s): I25.10 - Atherosclerotic heart disease of [place] coronary artery without angina pectoris (5) Diabetes mellitus Onset Date: 03/10/14 Current Visit: No Status: Acute (6) History of CVA (cerebrovascular accident) Current Visit: No Status: Acute - Plan Physical Exam General: Alert, In no apparent distress, Oriented x3 Neck: Supple, 2+ carotid pulse no bruit, No LAD, Without JVD or thyroid abnormality Respiratory: Clear to auscultation bilaterally, Normal air movement Cardiovascular: Regular rate/rhythm, Normal S1 S2 Gastrointestinal: Normal bowel sounds, No tenderness Musculoskeletal: No tenderness Integumentary: No rashes Neurological: Normal speech, Normal strength at 5/5 x4 extr. Plan: Patient states his blood pressure readings have been normal at home. Blood pressure readings have been fluctuating since admission.. Troponin elevated but trended flat. Patient with a significant history of coronary artery disease status post multiple stent. Arterial Doppler of the lower extremities suggest moderate to advanced peripheral arterial disease. Continue home antihypertensives metoprolol and lisinopril. Hydralazine as needed for BP spikes. Patient seen by cardiology Dr. Napoles who is planning both cardiac catheterization and peripheral angiogram. Continue aspirin, Plavix and Lipitor. Insulin sliding scale for glucose management.
[2022-07-05] MEDS: ATORVASTATIN 40 MG TAB PO SCH (20:48)
[2022-07-05] MEDS: ACETAMINOPHEN 500 MG TAB PO PRN (20:49)
[2022-07-06 03:38] VITALS: BMI 28.0
[2022-07-06 03:48] LABS: Absolute Lymphocytes (CBC) 3.2 K/uL (0.7-4.9); Hematocrit 39.6 % (36.0-45.0); Lymphocytes % 31.1 % (15.3-44.8); MCV 84.6 fL (80-100); MPV 8.2 fL (7.6-11.3); RBC Red Blood Cell Count 4.68 M/uL (3.86-4.86)
[2022-07-06 03:54] LABS: Potassium 3.5 mmol/L (3.5-5.1)
[2022-07-06] MEDS: METOPROLOL XL 25 MG TAB PO SCH (05:24)
--- NOTE | 2022-07-06 06:54 | ECHO ---
HEIGHT: 5 ft 9 in WEIGHT: 190 lb 0 oz DATE OF STUDY: 07/05/[address]: Gage Hernandez NP 2-DIMENSIONAL: YES M.MODE: YES DOPPLER: YES COLOR FLOW: YES TDS: YES PORTABLE: YES DEFINITY: BUBBLE STUDY: DIAGNOSIS: ELEVATED TROPONIN CARDIAC HISTORY: CATHERIZATION: SURGERY: PROSTHETIC VALVE: PACEMAKER: MEASUREMENTS (cm) DIASTOLIC (NORMALS) SYSTOLIC (NORMALS) IVSd 0.9 (0.6-1.2) LA Diam 2.5 (1.9-4.0) LVEF 66% LVIDd 4.2 (3.5-5.7) LVIDs 2.7 (2.0-3.5) %FS 36% LVPWd 1.3 (0.6-1.2) Ao Diam 2.8 (2.0-3.7) 2 DIMENSIONAL ASSESSMENT: RIGHT ATRIUM: NORMAL LEFT ATRIUM: NORMAL RIGHT VENTRICLE: NORMAL LEFT VENTRICLE: NORMAL TRICUSPID VALVE: TRACE TRICUSPID REGURGITATION MITRAL VALVE: MILD MITRAL REGURGITATION PULMONIC VALVE: NORMAL AORTIC VALVE: NORMAL PERICARDIAL EFFUSION: NONE AORTIC ROOT: NORMAL LEFT VENTRICULAR WALL MOTION: NORMAL DOPPLER/COLOR FLOW: SEE BELOW COMMENTS: 1. NORMAL LEFT VENTRICULAR EJECTION FRACTION 60-65% 2. NORMAL WALL MOTION 3. MILD MITRAL REGURGITATION TECHNOLOGIST: SYLVIA LÓPEZ
[2022-07-06] MEDS: INSULIN -REGULAR HUMAN 50 UNIT/0.5 ML ML SQ SCH ×4 (07:30→20:18)
[2022-07-06] MEDS: ASPIRIN EC 81 MG TAB PO SCH (07:48)
[2022-07-06] MEDS: lisinopriL 10 MG TAB PO SCH (07:48)
[2022-07-06] MEDS: CLOPIDOGREL 75 MG TABLET PO SCH (07:48)
[2022-07-06] MEDS ORDERED: REGADENOSON 0.4 MG/5 ML SYR IV ONE (12:48)
--- NOTE | 2022-07-06 15:13 | RAD REPORT ---
EXAM DESCRIPTION: NM - Rest Stress Cardiac Imaging - 07/06/2022 2:02 pm CLINICAL HISTORY: EVELATED TROPONIN COMPARISON: REST STRESS CARDIAC dated 03/10/2014 TECHNIQUE: The patient was administered approximately 1.3 mCi of Tc 99m Sestamibi prior to resting S PECT imaging of the heart. The patient was then administered approximately 32.8 mCi of Tc 99m Sestami bi following exercise or pharmacologic stress. Multiplanar SPECT images were reviewed. FINDINGS: No reversible ischemic defect is seen to suggest stress induced myocardial ischemia. Stabl e fixed lateral apical to basal wall defect extending to the junction with the inferior wall. A small mid to apical segment inferior wall region which previously demonstrated a fixed defect now demonstr ates normal uptake, potentially representing re- vascularized myocardium. The end diastolic volume is 71 ml, the end systolic volume is 35 ml, and the ejection fraction is 50 %. IMPRESSION: No scintigraphic evidence of stress-induced myocardial ischemia. Fixed defect involving the lateral and inferolateral wall as above, suggesting a stable infarct. Smal l mid to apical inferior wall region mild demonstrates normal uptake, potentially representing devasc ularized myocardium. Left ventricular ejection fraction is at the lower limit of normal, 50%.
--- NOTE | 2022-07-06 18:14 | P.PN ---
Subjective Date of Service: 07/06/22 Chief Complaint: Hypertensive emergency Patient no new complaint. Her blood pressure continues to fluctuate. Physical Examination - Vital Signs Temperature: 98.5 F Blood Pressure: 184/89 Pulse: 96 Respirations: 16 Pulse Ox (%): 95 Assessment And Plan - Current Problems (Diagnosis) (1) Hypertensive emergency Current Visit: Yes Status: Acute (2) Peripheral vascular disease Current Visit: Yes Status: Acute (3) NSTEMI (non-ST elevated myocardial infarction) Current Visit: No Status: Acute (4) CAD (coronary artery disease) Onset Date: 01/14/16 Current Visit: No Status: Acute Qualifiers: Coronary Disease-Associated Artery/Lesion type: [place] artery [place] vs. transplanted heart: [place] heart Associated angina: without angina Qualified Code(s): I25.10 - Atherosclerotic heart disease of [place] coronary artery without angina pectoris (5) Diabetes mellitus Onset Date: 03/10/14 Current Visit: No Status: Acute (6) History of CVA (cerebrovascular accident) Current Visit: No Status: Acute - Plan Physical Exam General: Alert, In no apparent distress, Oriented x3 Neck: Supple, 2+ carotid pulse no bruit, No LAD, Without JVD or thyroid abnormality Respiratory: Clear to auscultation bilaterally, Normal air movement Cardiovascular: Regular rate/rhythm, Normal S1 S2 Gastrointestinal: Normal bowel sounds, No tenderness Musculoskeletal: No tenderness Integumentary: No rashes Neurological: Normal speech, Normal strength at 5/5 x4 extr. Plan: Patient reports normal blood pressure recordings at home. Blood pressure readings have been fluctuating since admission.. Troponin elevated but trended flat. Patient with a significant history of coronary artery disease status post multiple stent. Arterial Doppler of the lower extremities suggest moderate to advanced peripheral arterial disease. Nuclear stress test done today showed fixed defects Continue home antihypertensives metoprolol and lisinopril. Hydralazine as needed for BP spikes. Dr. Napoles is following and considering cardiac catheterization and peripheral angiogram. Continue aspirin, Plavix and Lipitor. Insulin sliding scale for glucose management.
[2022-07-06] MEDS: MELATONIN 5 MG TABLET PO PRN (20:17)
[2022-07-06] MEDS: ATORVASTATIN 40 MG TAB PO SCH (20:18)
[2022-07-06] MEDS: ACETAMINOPHEN 500 MG TAB PO PRN (20:21)
--- NOTE | 2022-07-06 21:37 | PN ---
Date of Progress Note: 07/06/2022 Subjective: Seen by bedside. No new complaints. Review of Systems: No chest pain, shortness of breath, orthopnea, or cough. No nausea, vomiting, or diarrhea. All othe r systems reviewed, they were negative. Physical Examination: Vital Signs: Reviewed. Head and Neck: Pupils are equal, reactive to light. Intact eye movements. No JVD. No cervical lym phadenopathy. Neck is supple. Thyroid is not enlarged. Lungs: Clear to auscultation bilaterally. No rhonchi, wheezing, or crackles. No accessory muscle u se. Heart: Regular rate and rhythm. No extra sounds. Abdomen: Soft, nontender. Bowel sounds positive. No organomegaly. No masses or hernia. No rigidi ty or rebound. Extremities: No clubbing or cyanosis. Diminished pulses. Neurological: Alert, awake, and oriented x3. No acute focal deficits appreciated. Investigations: Echo is normal ejection fraction. Stress test, no ischemia. Assessment And Recommendation: 1.Elevated troponin. This is demand ischemia due to hypertensive crisis. No further cardiac workup is needed and from Cardiology standpoint, patient can be released to follow up as an outpatient. 2.Peripheral vascular disease with lower extremity pain with activities. She needs peripheral angiogram, which can be arranged for as an outpatient. /MODL Voice ID: [id number] Report ID: [id number]
--- NOTE | 2022-07-06 22:23 | PN ---
Date of Progress Note: 07/05/2022 Subjective: Seen by bedside. No chest pain. Blood pressure has been stable. Review of Systems: No chest pain, shortness of breath, orthopnea, cough, nausea, vomiting, or diarrhea. All other syste ms reviewed, they were negative. Physical Examination: Vital Signs: Reviewed. Head and Neck: Pupils are equal, reactive to light. Intact eye movements. No JVD. No cervical lym phadenopathy. Neck is supple. Thyroid is not enlarged. Lungs: Clear to auscultation bilaterally. No rhonchi, wheezing, or crackles. No accessory muscle u se. Heart: Regular rate and rhythm. No extra sounds. Abdomen: Soft, nontender. Bowel sounds positive. No organomegaly. No masses or hernia. No rigidi ty or rebound. Extremities: No edema, clubbing, or cyanosis. Intact pulses. Skin: No rash. Neurologic: Alert, awake, and oriented x3. No acute focal deficits appreciated. Investigations: Labs reviewed. Assessment And Recommendation: 1.Elevated troponin with chest pain. Pain resolved. Troponin is borderline. Obtain exercise nucle ar stress test to further evaluate. 2.Hypertension. Blood pressure is controlled now. 3.Dyslipidemia. Continue statin. 4.Peripheral vascular disease. She will need an angiogram, which will be arranged for either during this hospital stay or as an outpatient. /CHADD Voice ID: [id number] Report ID: [id number]
[2022-07-07 05:10] VITALS: O2SAT 96
[2022-07-07] MEDS: METOPROLOL XL 25 MG TAB PO SCH (05:38)
--- NOTE | 2022-07-07 07:14 | TREADPHA ---
DX: ELEVATED TROPONIN Date of Study: 07/06/2022 Ht: 5' 9 " Wt: 190 lb 0 oz Consulting Physician: GIANNA MEDICATIONS: TYLENOL, ASPIRIN, LIPIOTR, PLAVIX, LOVENOX, APRESOLINE, NOVOLIN-R, PRINIVIL, MELATONIN, TOPROL XL, ZOFRAN HISTORY: 66 YEAR OLD FEMALE WITH HISTORY OF HYPERTENSION, HYPERLIPIDEMIA, CORONARY ARTERY DISEASE WITH STENTS TIMES THREE, CEREBRAL VASCULAR ACCIDENT, NON-INSULIN DEPENDENT DIABETES MELLITUS, FORMER SMOKER - HALF PACK PER DAY, DENIES ALCOHOL OR DRUG USE. PHYSICIAL EXAMINATION: RESTING B.P.: 149/109 RESTING H.R.: 90 RESTING EKG: NORMAL SINUS RHYTHM WITH ST DEPRESSION IN INFERIOR LEADS PROTOCOL: PHARMACOLOGIC EXERCISE TIME: 3:30 B.P. AT [place]AK STRESS: 196/101 IMPRESSION: LEXISCAN INJECTED, CARDIOLITE GIVEN PER PROTOCOL, SEE NUCLEAR MEDICINE REPORT. PREMATURE ATRIAL COMPLEXES NOTED. NO PREMATURE VENTRICULAR COMPLEXES, SUPRAVENTRICULAR TACHYCARDIA, VENTRICULAR TACHYCARDIA NOTED. PATIENT DENIES SHORTNESS OF BREATH OR CHEST PAIN. NO ELECTROCARDIOGRAM CHANGES WITH LEXISCAN.
[2022-07-07] MEDS: INSULIN -REGULAR HUMAN 50 UNIT/0.5 ML ML SQ SCH (07:30)
[2022-07-07 08:47] VITALS: BP 156/84; TEMP 98.1
[2022-07-07] MEDS: lisinopriL 10 MG TAB PO SCH (08:58)
[2022-07-07] MEDS: ENOXAPARIN 40 MG/0.4 ML SQ SCH (08:58)
[2022-07-07] MEDS: CLOPIDOGREL 75 MG TABLET PO SCH (08:58)
[2022-07-07] MEDS: ASPIRIN EC 81 MG TAB PO SCH (08:59)
--- NOTE | 2022-07-07 09:26 | P.DS ---
Admission Date: 07/04/22 Discharge Date: 07/07/22 Disposition: ROUTINE DISCHARGE Discharge Condition: FAIR Reason for Admission: Hypertensive emergency - Problems (1) Hypertensive emergency Status: Acute (2) Peripheral vascular disease Status: Acute (3) NSTEMI (non-ST elevated myocardial infarction) Status: Acute (4) CAD (coronary artery disease) Onset Date: 01/14/16 Status: Acute Qualifiers: Coronary Disease-Associated Artery/Lesion type: [place] artery [place] vs. transplanted heart: [place] heart Associated angina: without angina Qualified Code(s): I25.10 - Atherosclerotic heart disease of [place] coronary artery without angina pectoris (5) Diabetes mellitus Onset Date: 03/10/14 Status: Acute (6) History of CVA (cerebrovascular accident) Status: Acute Brief History of Present Illness: 66-year-old female with history of hypertension, hyperlipidemia, CAD with previous stents, previous CVA, [id number] diabetes presented to the emergency department for lower extremity pain. She reports she was at work when she began to have left lower extremity pain followed by mild right lower extremity pain. She was evaluated in the emergency department ultrasound of the lower extremities negative bilaterally for DVT. She was noted to be very hypertensive with initial blood pressure of 209/118. She had a cardiac work-up, her high-sensitivity troponin is 83.7, BNP is 333. She was given 24 of aspirin, 25 mg of oral hydralazine in the emergency department as well as 0.2 mg of clonidine p.o. patient admitted for further management of elevated troponin. Last heart catheterization 2019 with 1 stent placed. Hospital Course: Patient admitted to the medical floor. Troponin trended flat Patient reports normal blood pressure recordings at home. Blood pressure readings fluctuated during this hospitalization Patient with a significant history of coronary artery disease status post multiple stent. Arterial Doppler of the lower extremities suggested moderate to advanced peripheral arterial disease. Patient seen by cardiology Dr. Napoles who recommended nuclear stress test. Nuclear stress test done today showed fixed defects, no reversible ischemia Her home antihypertensives metoprolol and lisinopril were continued during the hospital stay. Dr. Napoles is considering cardiac catheterization and peripheral angiogram as an outpatient. She has been on aspirin, Plavix and Lipitor which were continued during the hospital stay. Patient deemed stable for discharge per cardiology for outpatient work-up. Vital Signs/Physical Exam: Temp Pulse Resp BP Pulse Ox 98.1 F 99 H 18 156/84 H 94 07/07/22 08:00 07/07/22 08:58 07/07/22 08:00 07/07/22 08:58 07/07/22 08:00 General: Alert, In no apparent distress, Oriented x3 HEENT: Mucous membr. moist/pink Neck: JVD not distended Respiratory: Clear to auscultation bilaterally, Normal air movement Cardiovascular: Regular rate/rhythm, Normal S1 S2 Gastrointestinal: Normal bowel sounds, Soft and benign, Non-distended, No tenderness Musculoskeletal: No swelling Integumentary: No rashes, No cyanosis Neurological: Normal strength at 5/5 x4 extr Laboratory Data at Discharge: WBC 10.40 K/uL (4.3-10.9) 07/06/22 03:10 Hgb 12.8 g/dL (12.0-15.0) 07/06/22 03:10 Hct 39.6 % (36.0-45.0) 07/06/22 03:10 Plt Count 268 K/uL (152-406) 07/06/22 03:10 PT 10.9 SECONDS (9.5-12.5) 07/04/22 01:14 INR 0.99 07/04/22 01:14 Sodium 139 mmol/L (136-145) 07/06/22 03:10 Potassium 3.5 mmol/L (3.5-5.1) 07/06/22 03:10 BUN 16 mg/dL (7-18) 07/06/22 03:10 Creatinine 0.75 mg/dL (0.55-1.02) 07/06/22 03:10 Glucose 173 mg/dL (74-106) H 07/06/22 03:10 Total Bilirubin Cancelled 07/04/22 02:04 AST Cancelled 07/04/22 02:04 ALT Cancelled 07/04/22 02:04 Alkaline Phosphatase Cancelled 07/04/22 02:04 Triglycerides 110 mg/dL (<150) 07/04/22 04:22 Cholesterol 133 mg/dL (<200) 07/04/22 04:22 HDL Cholesterol 40 mg/dL (40-60) 07/04/22 04:22 Cholesterol/HDL Ratio 3.33 07/04/22 04:22 Home Medications: Metformin HCl [Glucophage] 1,000 mg PO BID 30 Days #60 tablet 02/01/20 Atorvastatin Calcium [Lipitor] 40 mg PO BEDTIME 07/04/22 Dulaglutide [Trulicity] 1.5 mg SQ 1X MDD weekly x 1 dose 07/04/22 Glipizide [Glipizide ER] 10 mg PO DAILY 07/04/22 Lisinopril [Zestril] 10 mg PO DAILY 07/04/22 Aspirin [Aspirin EC 81 MG] 81 mg PO DAILY #30 tablet. 07/07/22 Clopidogrel Bisulfate [Plavix*] 75 mg PO DAILY #30 tab 07/07/22 Metoprolol Succinate [Toprol Xl*] 25 mg PO [id number] #30 tab 07/07/22 New Medications: Aspirin [Aspirin EC 81 MG] 81 mg PO DAILY #30 tablet. Clopidogrel Bisulfate [Plavix*] 75 mg PO DAILY #30 tab Metoprolol Succinate [Toprol Xl*] 25 mg PO [id number] #30 tab Diet: ADA Activity: Ad hanh Followup: Lee Napoles MD [ACTIVE - CAN ADMIT] - Karen Bautista MD [Primary Care Provider] - Time spent managing pt's care (in minutes): 35
== END 2022-07-07 10:42 | disposition home or self-care (01) | DRG 305 ==
LOC: ER 00:43 → ERHOLD 02:52 → 4TH 07-05 18:16
PROVIDERS: ADMIT Hospitalist; ATTEND Internal Medicine
DX: I16.1 Hypertensive emergency (principal); I24.8 Other forms of acute ischemic heart disease; E78.5 Hyperlipidemia, unspecified; E11.51 Type 2 diabetes mellitus with diabetic peripheral angiopathy without gangrene; I25.10 Atherosclerotic heart disease of native coronary artery without angina pectoris; I25.2 Old myocardial infarction; R77.8 Other specified abnormalities of plasma proteins; Z79.4 Long term (current) use of insulin; Z95.5 Presence of coronary angioplasty implant and graft; Z79.02 Long term (current) use of antithrombotics/antiplatelets; Z90.49 Acquired absence of other specified parts of digestive tract; Z79.82 Long term (current) use of aspirin; Z86.73 Personal history of transient ischemic attack (TIA), and cerebral infarction without residual deficits; Z79.84 Long term (current) use of oral hypoglycemic drugs; Z79.899 Other long term (current) drug therapy; Z90.710 Acquired absence of both cervix and uterus; Z20.822 Contact with and (suspected) exposure to COVID-19
CPT/HCPCS: 36415; 78452; 80048; 80061; 80076; 82947; 83036; 83880; 84439; 84443; 84484; 85025; 85379; 85610; 87811; 93005; 93017; 93306; 93925; 93970; 99284; A9500; J0360; J1650; J1815; J2785

== ENCOUNTER 2024-03-18 06:35 | Day surgery (SDC) | payer OTHER ==
--- NOTE | 2024-03-13 11:03 | RAD REPORT ---
Procedure: Chest Pa And Lat (2 Views) HISTORY: Preop for angiogram. Hypertension COMPARISON: 2022 FINDINGS: The lungs appear clear of acute infiltrate. No significant pleural effusion noted. The heart is mildly enlarged IMPRESSION: No acute abnormality is displayed.
[2024-03-13 11:50] LABS: Absolute Basophils 0.1 K/uL (0-0.5); Absolute Eosinophils 0.4 K/uL (0-0.5); Absolute Lymphocytes (CBC) 2.6 K/uL (0.7-4.9); Absolute Monocytes 0.8 K/uL (0.1-1.3); Absolute Neutrophil 4.6 K/uL (1.8-8.0); Basophils % 0.8 % (0-1.3); Eosinophils % 5.1 % (0-4.4); Hematocrit 43.4 % (36.0-45.0); Hemoglobin 13.9 g/dL (12.0-15.0); MCH 27.7 pg (27.0-35.0); MCV 86.5 fL (80-100); MPV 8.1 fL (7.6-11.3); Monocytes % 9.3 % (3.3-12.3); Neutrophils % 53.8 % (41.7-73.7); Platelets 406 thou/uL (152-406); RBC Red Blood Cell Count 5.01 M/uL (3.86-4.86); Red Cell Distribution Width 14.8 % (12.1-15.2)
[2024-03-13 11:55] LABS: PT Prothrombin Time 11.6 SECONDS (9.4-12.5); PTT, Activated Partial Thromb 31.4 SECONDS (24.3-36.9); Protime INR 1.04
[2024-03-13 11:59] LABS: Anion Gap 6.7 mEq/L (5.0-15.0); Potassium 3.7 mEq/L (3.5-5.1)
[2024-03-13 12:17] LABS: Blood Morphology Comment NOT SEEN (NOT SEEN); Differential Total Cells Count 100; Eosinophils 4 % (0-3); Lymphocytes 21 % (15-42); Monocytes 4 % (0-10); Platelet Estimate ADEQ; Segmented Neutrophils 69 % (40-80); White Blood Cell Scan OK (OK)
[2024-03-18] MEDS ORDERED: NA CHLORIDE 0.9% 500 ML ONE (06:37)
[2024-03-18] MEDS ORDERED: VERAPAMIL HCL 10 MG/4 ML VIAL IV ONE (06:49)
[2024-03-18] MEDS ORDERED: LIDOCAINE 1% 20 ML MDV ONE (06:49)
[2024-03-18] MEDS ORDERED: HEPA 1000U/500MLS 2,000 UNIT/1,000 ML BAG IV ONE (06:49)
[2024-03-18] MEDS ORDERED: NITROGLYCERIN/D5W 50 MG/250 ML BTL IV ONE (06:49)
[2024-03-18] MEDS ORDERED: HEPARIN 10,000 UNIT/10 ML VIAL IV ONE (06:49)
[2024-03-18] MEDS ORDERED: FENTANYL CITR 100 MCG/2 ML ONE (06:50)
[2024-03-18] MEDS ORDERED: ATROPINE SULF 1 MG/10 ML SYR IV ONE (06:50)
[2024-03-18] MEDS ORDERED: HEPARIN 5000 UNIT/ML 1 ML VIAL ONE (06:50)
[2024-03-18] MEDS ORDERED: MIDAZOLAM HCL 2 MG/2 ML INJ ONE (06:50)
[2024-03-18] MEDS ORDERED: HYDRALAZINE HCL 20 MG/ML VIAL ONE (07:12)
[2024-03-18 09:00] VITALS: TEMP 97.8
[2024-03-18 15:42] VITALS: O2SAT 96
[2024-03-18 15:43] VITALS: BP 159/79
--- NOTE | 2024-03-18 17:38 | EKG ---
Test Date: 2024-03-13 Test Time: 11:19:44 Brake Repair Mechanic: KELLE MEASUREMENT RESULTS: Intervals: Rate: 87 WA: 136 QRSD: 86 QT: 380 QTc: 457 [place]: P: 58 WA: 136 QRS: 2 T: 26 INTERPRETIVE STATEMENTS: Normal sinus rhythm Low voltage QRS Cannot rule out Anterior infarct, age undetermined Abnormal ECG Compared to ECG 08/03/2022 09:23:44 Myocardial infarct finding now present Electronically Signed On 03-18-24 17:25:14 TEST OPERATOR by Lee Napoles
--- NOTE | 2024-04-09 02:07 | OP ---
Date of Procedure: 03/18/2024 Surgeon: ARNOLD KATZ Procedure Performed: Peripheral angiogram with runoff. Indication: Peripheral vascular disease. Access: Right radial artery 6-[place], closed with TR band. Complications: None. Bleeding: Less than 50 mL. Anesthesia: Total sedation time was 45 minutes. Description Of Procedure: After risks, benefits, and alternatives were explained, the patient agreed to procedure and signed informed consent. The patient was brought [facility], prepped and draped in usual sterile fashion. Then, I accessed right radial artery using pedi atric micropuncture kit and placed 6-[place] Slender sheath and took a long 4-Latvian pigtail catheter and placed in distal aorta, performed distal aortogram and runoff and then removed the catheter and t he sheath, placed TR band with good hemostasis. Findings: 1.Distal aorta is widely patent. 2.Right lower extremity: Right common iliac, external iliac, common femoral, and profunda widely pa tent. The right proximal SFA is normal and there is a stent in the distal SFA with 90% in-stent rest enosis. The popliteal artery is patent and then anterior tibial is occluded. Tibial trunk is patent and the posterior tibial has 80% to 90% stenosis and the peroneal is 100% occluded. 3.Left lower extremity: The left common iliac, external iliac, and common femoral profunda and SFA are widely patent. The popliteal is patent. Anterior tibial is occluded. Tibial trunk is patent an d the peroneal artery has diffuse 80% to 90% stenosis and posterior tibial has distal 100% occlusion. Conclusion: Severe bilateral peripheral vascular disease, especially below the knee. Plan: We will plan to intervene on the right SFA and below the knee arteries at [place] and then into the left leg at a later time. /MODL Voice ID: [id number] Report ID: [id number]
== END 2024-03-18 11:00 | disposition home or self-care (01) ==
LOC: CCL 06:35
PROVIDERS: ATTEND Internal Medicine
DX: I70.213 Atherosclerosis of native arteries of extremities with intermittent claudication, bilateral legs (principal); I70.92 Chronic total occlusion of artery of the extremities; T82.856A Stenosis of peripheral vascular stent, initial encounter; I25.10 Atherosclerotic heart disease of native coronary artery without angina pectoris; I65.21 Occlusion and stenosis of right carotid artery; I10 Essential (primary) hypertension; E11.9 Type 2 diabetes mellitus without complications; E78.2 Mixed hyperlipidemia; Z86.73 Personal history of transient ischemic attack (TIA), and cerebral infarction without residual deficits; Z87.891 Personal history of nicotine dependence; Z79.82 Long term (current) use of aspirin; Z79.02 Long term (current) use of antithrombotics/antiplatelets; Z79.85 Long-term (current) use of injectable non-insulin antidiabetic drugs; Z79.84 Long term (current) use of oral hypoglycemic drugs; Z79.899 Other long term (current) drug therapy; Z82.49 Family history of ischemic heart disease and other diseases of the circulatory system
CPT/HCPCS: 93005; 85025; 80048; 36415; 85610; 82947; 85730; 71046; 36200; 75630; 76937; C1893; C1769; J1644; J2003; J2250; J3010; J7040; 99152; 99153; J0360; J0461

== ENCOUNTER 2025-01-14 06:00 | Day surgery (SDC) | payer OTHER ==
[2025-01-08 14:17] LABS: Absolute Lymphocytes (CBC) 2.6 K/uL (0.7-4.9); Hematocrit 43.3 % (36.0-45.0); Hemoglobin 14.1 g/dL (12.0-15.0); MCH 27.7 pg (27.0-35.0); MCHC 32.5 g/dL (32.0-36.0); MCV 85.2 fL (80-100); MPV 8.2 fL (7.6-11.3); Nucleated RBC Absolute Count 0.0 (0-0); Nucleated Red Blood Cells % 0.0 % (0-0); RBC Red Blood Cell Count 5.08 M/uL (3.86-4.86); White Blood Count 10.70 thou/uL (4.3-10.9)
[2025-01-08 14:26] LABS: PT Prothrombin Time 12.4 SECONDS (10-13.0); PTT, Activated Partial Thromb 31.2 SECONDS (27.2-37.4); Protime INR 1.1
[2025-01-08 14:34] LABS: Anion Gap 10.2 mEq/L (5.0-15.0); BUN Blood Urea Nitrogen 13.0 mg/dL (7-18); Glucose Level 202.0 mg/dL (74-106); Potassium 4.2 mEq/L (3.5-5.1)
--- NOTE | 2025-01-08 15:09 | RAD REPORT ---
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 COMPARISON: 03/13/2024 FINDINGS: The lungs are well inflated and clear. The heart is moderately enlarged. No displaced fractures evide nt.
[2025-01-14] MEDS ORDERED: NA CHLORIDE 0.9% 500 ML ONE (06:05)
[2025-01-14] MEDS ORDERED: FENTANYL CITR 100 MCG/2 ML ONE (06:06)
[2025-01-14] MEDS ORDERED: MIDAZOLAM HCL 2 MG/2 ML INJ ONE (06:07)
[2025-01-14] MEDS ORDERED: HEPA 1000U/500MLS 2,000 UNIT/1,000 ML BAG IV ONE (06:38)
[2025-01-14] MEDS ORDERED: NITROGLYCERIN/D5W 50 MG/250 ML BTL IV ONE (06:38)
[2025-01-14] MEDS ORDERED: LIDOCAINE 1% 20 ML MDV ONE (06:39)
[2025-01-14] MEDS ORDERED: ATROPINE SULF 1 MG/10 ML SYR IV ONE (06:39)
[2025-01-14] MEDS ORDERED: HEPARIN 10,000 UNIT/10 ML VIAL IV ONE (06:39)
[2025-01-14] MEDS ORDERED: VERAPAMIL HCL 10 MG/4 ML VIAL IV ONE (06:40)
[2025-01-14] MEDS ORDERED: NALOXONE 0.4 MG/ML VIAL ONE (06:40)
[2025-01-14] MEDS ORDERED: FLUMAZENIL 0.1 MG/ML (5 mL VIAL) IV ONE (06:40)
[2025-01-14] MEDS ORDERED: HEPARIN 5000 UNIT/ML 1 ML VIAL ONE (06:41)
[2025-01-14] MEDS ORDERED: CLOPIDOGREL 75 MG TABLET ONE (07:49)
--- NOTE | 2025-01-14 08:28 | OP ---
Date of Procedure: 01/14/2025 Surgeon: ARNOLD KATZ Procedures Performed: 1. Selective coronary angiogram. 2. Left heart catheterization. 3. PCI of severe distal RCA disease, used 3.0 x 20 mm Synergy drug-eluting stent. Indication: Unstable angina. Access: Right radial artery 6-Japanese, closed with TR band. Complications: None. Bleeding: Less than 50 mL. Total Sedation Time: 1 hour, used fentanyl and Versed. Description Of Procedure: After risks, benefits, and alternatives were explained, the patient agreed to procedure and signed informed consent. The patient was brought into cardiac catheterization [facility], prepped and draped in usual sterile fashion. Then, I accessed right radial artery using pedi atric micropuncture kit, ultrasound guidance, and placed 6-Japanese Slender sheath, took 5-Japanese [place] 4 catheter over J-wire into the aortic root, crossed the aortic valve, measured the LVEDP. Pullback did not record any gradient, then engaged left main, took standard views, and then the RCA, took sta ndard views and then exchanged for 6-Japanese JR4 guide with side holes, engaged the RCA, gave systemic heparin to assure ACT level above 250 and patient is already on aspirin, Plavix, and she took them t his morning, took run-through wire into the RCA, placed it distally, and then using a 3.0 balloon, frannie donovan expanded and pre-dilated successfully and then placed a 3.0 x 20 mm Synergy drug-eluting stent a cross the area of stenosis, excellent expansion to overlap with old stent and then wire was removed. Final angiogram was satisfactory and then I attempted to wire the HOTSHOT SUPERINTENDENT of the PLB using the run-throu gh wire, and the Fielder XT was failed to cross the lesion. At the end, the PLB is getting collatera ls from the LAD, so decided to stop the procedure at this point, removed the wires and the guide and the sheath, and TR band was used for closure with good hemostasis. Findings: 1. Left main has 20% stenosis proximally. 2. LAD; proximal luminal irregularities, mid 30% to 40%, mid to distal diffuse 40% stenosis. Diagona l branches with luminal irregularities. 3. Left circumflex; moderate size, patent OM stent. 4. RCA, it is large and dominant, proximal 40%, widely patent stent with 20% ISR. Distal to stent, t here is a 90% stenosis long lesion, status post successful PCI and then the PLB has a HOTSHOT SUPERINTENDENT proximally with collaterals from the LAD and PDA has a mild disease about 20% to 30%. 5. LVEDP is elevated at 50 mmHg. Conclusion: 1. Severe distal RCA stenosis, status post successful PCI. 2. HOTSHOT SUPERINTENDENT of the PLB proximally with collaterals from the LAD. 3. Moderate disease elsewhere. Recommendation: Aspirin, Plavix, high-dose statin. SR/MODL Voice ID: [id number] Report ID: [id number]
[2025-01-14 11:07] VITALS: BP 123/80; O2SAT 96
== END 2025-01-14 11:17 | disposition home health service (06) ==
LOC: CCL 06:00
PROVIDERS: ATTEND Internal Medicine
DX: I25.110 Atherosclerotic heart disease of native coronary artery with unstable angina pectoris (principal); I25.82 Chronic total occlusion of coronary artery; T82.855A Stenosis of coronary artery stent, initial encounter; I65.23 Occlusion and stenosis of bilateral carotid arteries; I70.203 Unspecified atherosclerosis of native arteries of extremities, bilateral legs; I11.0 Hypertensive heart disease with heart failure; I50.21 Acute systolic (congestive) heart failure; E78.2 Mixed hyperlipidemia; E11.9 Type 2 diabetes mellitus without complications; Z87.891 Personal history of nicotine dependence; Z79.82 Long term (current) use of aspirin; Z79.84 Long term (current) use of oral hypoglycemic drugs; Z79.85 Long-term (current) use of injectable non-insulin antidiabetic drugs; Z79.899 Other long term (current) drug therapy; Z82.49 Family history of ischemic heart disease and other diseases of the circulatory system
CPT/HCPCS: 93005; 85025; 80048; 36415; 85610; 82947; 85347; 85730; 71046; 93458; 76937; C1893; C1725; C9600; J1644 ×2; J2003; J2250; J3010; J7040; C1874; 99152; 99153; J0461; J2310